=== PATIENT | female | born 1945 | race Caucasian/White ===

== ENCOUNTER → 2020-01-06 11:17 | Outpatient (BNVA) | payer MEDICARE, OTHER, SELFPAY | PROVIDERS: Visit Provider Nurse Practitioner Family | DX: E03.9 Hypothyroidism, unspecified (principal) | CPT/HCPCS: 84443 ==

== ENCOUNTER → 2021-01-25 09:53 | Outpatient (BNVA) | payer MEDICARE, OTHER, SELFPAY | PROVIDERS: Visit Provider Nurse Practitioner Family | DX: E78.5 Hyperlipidemia, unspecified (principal); E05.90 Thyrotoxicosis, unspecified without thyrotoxic crisis or storm; E03.9 Hypothyroidism, unspecified | CPT/HCPCS: 80053; 80061; 84443 ==

== ENCOUNTER → 2021-03-06 11:37 | Outpatient (BNVA) | payer MEDICARE, OTHER, SELFPAY | PROVIDERS: Visit Provider Nurse Practitioner Family | DX: E03.9 Hypothyroidism, unspecified (principal) | CPT/HCPCS: 84443 ==

== ENCOUNTER 2021-04-28 05:57 | Emergency (ER) | payer MEDICARE, OTHER, SELFPAY ==
[2021-04-28 06:05] VITALS: BP 168/78; PULSE 79; RESP 18; O2SAT 98; BMI 20.7
[2021-04-28 06:12] VITALS: BP 161/78; PULSE 66; RESP 18; TEMP 36.9; O2SAT 97
--- NOTE | 2021-04-28 06:14 | W.ED.CHESTPA ---
HPI - Chest Pain General: Chief Complaint: Chest Pain Stated Complaint: cp Time Seen by Provider: 04/28/21 05:59 History of Present Illness: HPI narrative: 75-year-old female presents with a history of chest pain. This morning she woke up at 3 AM and had an episode of chest pain after 20 minutes she took a nitro, she had relief of her chest pain but after 5 minutes it began to return and she took another nitro this again relieve the chest pain she also took 3 x 81 mg tablets of aspirin. She has been having intermittent chest pain for a month. She states the last week or 2 its been 3 to 4 days out of a week usually wakes her up early in the morning. Most often she is able to take a nitro and it goes away and does not return. She sees a pathology technician in [place] and recently describes having a stress echo which was reported to her as normal but she was seeking out having an angiogram done. She did have an angiogram with intervention of the stent about 11 years ago. Patient is nondiabetic she does not smoke. At the time of her history taking she is not having any chest pain. Director [employer]ulatory [employer] she sees in [place] recently had her stop the losartan and changed to isosorbide mononitrate. MD complaint: chest pain Pertinent past history: coronary artery disease Onset (ago): hour(s) Timing of current episode: episodic Prior episodes: Yes Onset: during rest Pain location: left chest Pain radiation: none Severity: moderate Quality: tightness and heaviness Relieving factors: nitroglycerin Exacerbating factors: nothing Associated symptoms: Deny abdominal pain, diaphoresis, dyspnea, fever(s), leg edema, nausea, palpitations, sense of impending doom, syncope or vomiting Treatment prior to arrival: aspirin and nitroglycerin Review of Systems Const: Denies: fever(s) or diaphoresis ENMT: Denies: throat pain, ear or mastoid pain, nasal discharge or nasal congestion Card: Denies: palpitations or syncope Resp: Denies: dyspnea GI: Denies: abdominal pain, nausea or vomiting : Denies: flank pain, difficulty voiding, dysuria, urinary frequency or urinary urgency Skin/Breast: Denies: rash or pruritus PFS ED PFSH: Medical History (Updated 04/28/21 @ 09:07 by Claude Moscoso DO) Hyperlipidemia Hypothyroidism Surgical History (Updated 04/28/21 @ 06:38 by Claude Moscoso DO) Hx of heart artery stent Social History Smoking and tobacco status: never smoked Physical Exam Const: COMMON NORMALS: no acute distress GENERAL APPEARANCE: cooperative and comfortable ORIENTATION/CONSCIOUSNESS: Yes awake, Yes oriented to person, Yes oriented to place and Yes oriented to time HENMT: COMMON NORMALS: normocephalic, atraumatic and hearing grossly normal bilaterally HEAD & SCALP: normocephalic and atraumatic Neck/C-Spine: COMMON NORMALS: no JVD Resp: COMMON NORMALS: normal respiratory effort, No retractions, No use of accessory muscles and clear to auscultation bilaterally AUSCULTATION: clear to auscultation bilaterally Cardio: COMMON NORMALS: no JVD, regular rate, regular rhythm and No murmurs present (Cardio) RATE: regular rate RHYTHM: regular rhythm GI: COMMON NORMALS: Soft to palpation and No hepatosplenomegaly present AUSCULTATION: Yes normoactive bowel sounds PALPATION: Yes Soft to palpation, No Tenderness to palpation present (GI), No Guarding due to palpation present (GI) and Yes No hepatosplenomegaly present Extremity: COMMON NORMALS: normal to inspection, capillary refill normal, no clubbing, cyanosis or edema, no calf tenderness and no pedal edema Neuro: SENSORIUM/ORIENTATION: Yes oriented to person, Yes oriented to place and Yes oriented to time Skin: COMMON NORMALS: no rashes or lesions noted GENERAL SKIN EXAM: no rashes or lesions noted Course Vital Signs: Vital signs: Vital Signs Temperature 98.4 F 04/28/21 06:12 Pulse Rate 93 04/28/21 09:15 Respiratory Rate 20 H 04/28/21 09:15 Blood Pressure 133/72 04/28/21 09:15 Pulse Oximetry 97 04/28/21 09:15 MDM - Chest Pain MDM Narrative: Medical decision making narrative: Labs imaging and EKG were reviewed as found on the chart. Patient not having any further chest pain symptoms recently had stress test that was unremarkable.We got a copy of the stress echo and is listed is unremarkable. There evidently planning to do a angiogram at some point in the future. This is been going on for some time. We can increase her isosorbide to 60 mg daily. Continue aspirin daily she has any worsening or change symptoms return. Recommend she contact her pathology technician as soon as she is able next week. Lab Data: Labs: Lab Results 04/28/21 04/28/21 04/28/21 06:07 06:07 06:07 WBC 6.2 10^3/uL 10^3/ uL (4.0-10.0) RBC 4.04 10^6/uL L 10 ^6/uL (4.1-5.3) Hgb 12.6 g/dL g/dL (11.5-15.3) Hct 38.7 % % (37.0-47.0) MCV 95.8 fl fl (81-99) MCH 31.2 pg pg (28.0-34.0) MCHC 32.6 g/dL g/dL (30.0-36.0) RDW 12.0 % L % (12.1-15.1) Plt Count 283 10^3/cmm 10^3 /cmm (130-400) MPV 9.3 fL fL (7.4-10.4) Neut % (Auto) 66.1 % % Lymph % (Auto) 25.2 % % [place] % (Auto) 7.7 % % Eos % (Auto) 0.0 % % Baso % (Auto) 0.8 % % Neut # (Auto) 4.10 10^3/uL 10^3 /uL (1.8-7.7) Lymph # (Auto) 1.6 10^3/uL 10^3/ uL (0.8-4.8) [place] # (Auto) 0.5 10^3/uL 10^3/ uL (0.2-0.9) Eos # (Auto) 0.0 10^3/uL 10^3/ uL (0.0-0.8) Baso # (Auto) 0.1 10^3/uL 10^3/ uL (0.0-0.1) Nucleated RBC % (a uto) 0 % % Nucleated RBCs # 0.0 /100WBC /100W BC Troponin T Baselin e 7 ng/L ng/L (0-10) Troponin T 120 Min [place] Delta Troponin T NT-Pro-B Natriuret Pep 137 pg/mL H pg/mL (0-125) 04/28/21 07:56 WBC RBC Hgb Hct MCV MCH MCHC RDW Plt Count MPV Neut % (Auto) Lymph % (Auto) [place] % (Auto) Eos % (Auto) Baso % (Auto) Neut # (Auto) Lymph # (Auto) [place] # (Auto) Eos # (Auto) Baso # (Auto) Nucleated RBC % (a uto) Nucleated RBCs # Troponin T Baselin e Troponin T 120 Min [place] 6.00 ng/L ng/L (0-10) Delta Troponin T -1.00 ABS# L ABS# (0-10) NT-Pro-B Natriuret Pep Discharge Plan Discharge Patient Disposition: Home Clinical Impression: Atypical chest pain, History of atherosclerotic heart disease Condition: Stable Prescriptions: Changed isosorbide mononitrate 30 mg Tablet Extended Release 24 Hr 60 mg PO DAILY Qty: 0 RF: 0 No Action simvastatin 20 mg tablet 20 mg PO QDAY Qty: 30 RF: 0 levothyroxine 100 mcg capsule 100 mcg PO DAILY Qty: 90 RF: 1 aspirin 81 mg Tablet 81 mg PO DAILY RF: 0 Discharge Orders: Discharge ED (Routine); Ordered 04/28/21 Ordered By: Claude Moscoso Discharge Diet: Usual diet Discharge Activity: Limit activity as instructed Patient Instructions: Opioid Safety Activity Restrictions/Additional Instructions: Avoid strenuous activities. Return to the emergency room if you have further problems. Contact your pathology technician at first opportunity for further follow-up. Coding Level of Care Code ED Muffler Installer for Yuniel Fwd Exam Comprehensive
--- NOTE | 2021-04-28 06:16 | XRR_ITS ---
PROCEDURE INFORMATION: Exam: XR Chest Exam date and time: 04/28/2021 6:16 AM Age: 75 years old Clinical indication: Chest pressure; Prior surgery; Surgery type: Coronary stent. ; Patient HX: Chest pain with hypertension. TECHNIQUE: Imaging protocol: XR of the chest. Views: 1 view. COMPARISON: No relevant prior studies available. FINDINGS: Lungs: Unremarkable. No consolidation. Pleural spaces: Unremarkable. No pleural effusion. No pneumothorax. Heart/Mediastinum: Unremarkable. No cardiomegaly. Bones/joints: Unremarkable. XR/XR chest 1V portable [id number] IMPRESSION: No acute findings.
--- NOTE | 2021-04-28 06:16 | ECG_ITS ---
[facility] Test Date: 2021-04-28 Pat Name: Lakesha Robb Department: Room: Gender: Female Dynamicist: : 1945 Requested By: Claude Sarmiento Order Number: [id number] Shraddha MD: Phyllis Coronel M.D. Measurements Intervals [place] Rate: 75 P: 75 HI: 155 QRS: 21 QRSD: 97 T: 62 QT: 390 QTc: 437 Interpretive Statements SINUS RHYTHM NONSPECIFIC ST & T-WAVE ABNORMALITY No previous ECG available for comparison Electronically Signed On 04-28-2021 14:57:29 BUSINESS ANALYSIS CONSULTANT by Phyllis Coronel M.D. [id number]
[2021-04-28 06:30] VITALS: BP 161/78; PULSE 74; RESP 18; O2SAT 98
[2021-04-28 06:36] LABS: Basophils # 0.1 10^3/uL (0.0-0.1); Basophils % 0.8 %; Hematocrit 38.7 % (37.0-47.0); Hemoglobin 12.6 g/dL (11.5-15.3); Lymphocytes # 1.6 10^3/uL (0.8-4.8); Lymphocytes % 25.2 %; Mean Corpuscular HGB Conc 32.6 g/dL (30.0-36.0); Mean Corpuscular Hemoglobin 31.2 pg (28.0-34.0); Mean Corpuscular Volume 95.8 fl (81-99); Mean Platelet Volume 9.3 fL (7.4-10.4); Monocytes # 0.5 10^3/uL (0.2-0.9); Monocytes % 7.7 %; Neutrophils % 66.1 %; Nucleated Red Blood Cells % 0 %; Platelet Count 283 10^3/cmm (130-400); Red Blood Count 4.04 10^6/uL (4.1-5.3); White Blood Count 6.2 10^3/uL (4.0-10.0)
[2021-04-28 06:49] LABS: Troponin(5th) Baseline 7 ng/L (0-10)
[2021-04-28] MEDS: aspirin 81 mg Chew Tablet PO (06:54)
[2021-04-28] MEDS: nitroglycerin 1 gm/inch oint Pkt 0.5 INCH TOPICAL (06:54)
[2021-04-28 06:55] VITALS: BP 129/79; PULSE 67; RESP 18; O2SAT 96
[2021-04-28 06:57] LABS: NT Pro B Type Natriuretic Pept 137 pg/mL (0-125)
[2021-04-28 09:15] VITALS: BP 133/72; PULSE 93; RESP 20; O2SAT 97
--- NOTE | 2021-04-30 14:35 | DCPLANNER ---
Addendum entered by Maria Ines Figueredo 05/28/21 08:29: Patient had a follow up appointment scheduled for 05.21.21 with [facility] - patient did attend appointment. Original Note: career services manager had message to schedule a follow up appointment for patient with [facility]. career services manager called [facility], spoke with Sabine Pickering, gave clinic patients information. A follow up appointment was scheduled for Friday, May 21, 2021 at 2:[address] Coronel. career services manager called patients daughter and gave her the appointment information.
== END 2021-04-28 09:30 | disposition home or self-care (01) ==
PROVIDERS: Emergency Provider Family Medicine
DX: R07.89 Other chest pain (principal); I25.10 Atherosclerotic heart disease of native coronary artery without angina pectoris; E78.5 Hyperlipidemia, unspecified; E03.9 Hypothyroidism, unspecified
CPT/HCPCS: 36415; 71045; 83880; 84484; 85025; 93005; 99284

== ENCOUNTER 2021-05-10 06:39 | Emergency (ER) | payer MEDICARE, OTHER, SELFPAY ==
[2021-05-10 06:46] VITALS: BP 153/89; PULSE 74; RESP 18; O2SAT 99; BMI 20.7
[2021-05-10 06:51] VITALS: PULSE 76; RESP 19; O2SAT 98
[2021-05-10 07:07] LABS: Basophils % 0.7 %; Hematocrit 38.8 % (37.0-47.0); Hemoglobin 12.7 g/dL (11.5-15.3); Lymphocytes # 1.2 10^3/uL (0.8-4.8); Lymphocytes % 20.5 %; Mean Corpuscular HGB Conc 32.7 g/dL (30.0-36.0); Mean Corpuscular Hemoglobin 31.2 pg (28.0-34.0); Mean Corpuscular Volume 95.3 fl (81-99); Mean Platelet Volume 9.5 fL (7.4-10.4); Monocytes # 0.5 10^3/uL (0.2-0.9); Monocytes % 8.5 %; Neutrophils # 4.04 10^3/uL (1.8-7.7); Nucleated Red Blood Cells % 0 %; Platelet Count 249 10^3/cmm (130-400); Red Blood Count 4.07 10^6/uL (4.1-5.3); Red Cell Distribution Width 11.9 % (12.1-15.1); White Blood Count 5.8 10^3/uL (4.0-10.0)
--- NOTE | 2021-05-10 07:12 | W.ED.CHESTPA ---
HPI - Chest Pain General: Chief Complaint: Chest Pain Stated Complaint: cp Time Seen by Provider: 05/10/21 06:45 History of Present Illness: HPI narrative: Patient comes in with concerns for chest pain that started this morning. States that she had a stent placed 2 days ago after off-and-on chest pain for over a month. States this morning she woke up with midsternal chest pain which she describes as kind of an ache, constant, no exacerbating or relieving factors. Denies nausea, fever, vomiting. Associated symptoms: Deny abdominal pain, dyspnea, fever(s), nausea, palpitations or vomiting Review of Systems Const: Denies: fever(s) or body aches Eyes: Denies: change in vision or blurry vision ENMT: Denies: throat pain or odynophagia Card: Reports: chest pain; Denies: palpitations Resp: Denies: dyspnea or productive cough GI: Denies: abdominal pain, nausea or vomiting : Denies: flank pain or dysuria Musc: Denies: neck pain or back pain Skin/Breast: Denies: rash or pruritus Neuro: Denies: headache(s) or numbness in extremities Psych: Denies: anxiety or change in appetite Endo: Denies: polyuria or excessive sweating PFSH ED PFSH: Medical History (Updated 05/10/21 @ 10:06 by Galindo Peres MD) Hyperlipidemia Hypothyroidism Surgical History (Updated 04/28/21 @ 06:38 by Claude Moscoso DO) Hx of heart artery stent Social History Smoking and tobacco status: never smoked Physical Exam Const: COMMON NORMALS: no acute distress, patient oriented x3, healthy appearing and alert HENMT: COMMON NORMALS: normocephalic and atraumatic HEAD & SCALP: normocephalic and atraumatic Eye: COMMON NORMALS: Equal, round and reactive pupils present and EOMs intact bilaterally PUPIL: Yes Equal, round and reactive pupils present Neck/C-Spine: COMMON NORMALS: full ROM and supple Resp: COMMON NORMALS: normal respiratory effort, No retractions and No use of accessory muscles Cardio: COMMON NORMALS: regular rate and regular rhythm RATE: regular rate RHYTHM: regular rhythm GI: COMMON NORMALS: Normal to inspection, nondistended, normoactive bowel sounds present, Soft to palpation and non-tender PALPATION: Yes Soft to palpation Back/Pelvis: COMMON NORMALS: thoracic and lumbar spine normal to inspection and no thoracic nor lumbar tenderness Extremity: COMMON NORMALS: normal to inspection and full ROM Neuro: COMMON NORMALS: patient oriented x3 SENSORIUM/ORIENTATION: Yes alert Psych: COMMON NORMALS: mental status grossly normal and cooperative Skin: COMMON NORMALS: no rashes or lesions noted and no wounds GENERAL SKIN EXAM: no rashes or lesions noted Course ED course: Patient comes in with concerns for chest pain which she describes as midsternal, started this morning, achy, constant, no relieving factors. States she had a stent placed 2 days ago after off-and-on chest pain for about a month which she states feels similar to this. She states the chest pain is mild however compared to previous episodes. Stat EKG done upon arrival showed sinus rhythm with no ST segment elevations. Physical exam is unremarkable. We will give her nitro, check labs, and reassess. On reassessment I talked to the patient about the test results. Her troponin is 12 at baseline as well as at 2 hours. She is pain-free at this time. Will discharge with precautions return for worsening or changing symptoms. We will also encourage her to follow-up with her yarn wrapper as scheduled. Vital Signs: Vital signs: Vital Signs Pulse Rate 59 L 05/10/21 09:42 Respiratory Rate 14 05/10/21 09:42 Blood Pressure 122/73 05/10/21 09:42 Pulse Oximetry 97 05/10/21 09:42 MDM - Chest Pain Lab Data: Labs: Lab Results 05/10/21 05/10/21 05/10/21 06:50 06:50 06:50 WBC 5.8 10^3/uL 10^3/ uL (4.0-10.0) RBC 4.07 10^6/uL L 10 ^6/uL (4.1-5.3) Hgb 12.7 g/dL g/dL (11.5-15.3) Hct 38.8 % % (37.0-47.0) MCV 95.3 fl fl (81-99) MCH 31.2 pg pg (28.0-34.0) MCHC 32.7 g/dL g/dL (30.0-36.0) RDW 11.9 % L % (12.1-15.1) Plt Count 249 10^3/cmm 10^3 /cmm (130-400) MPV 9.5 fL fL (7.4-10.4) Neut % (Auto) 70.0 % % Lymph % (Auto) 20.5 % % [place] % (Auto) 8.5 % % Eos % (Auto) 0.0 % % Baso % (Auto) 0.7 % % Neut # (Auto) 4.04 10^3/uL 10^3 /uL (1.8-7.7) Lymph # (Auto) 1.2 10^3/uL 10^3/ uL (0.8-4.8) [place] # (Auto) 0.5 10^3/uL 10^3/ uL (0.2-0.9) Eos # (Auto) 0.0 10^3/uL 10^3/ uL (0.0-0.8) Baso # (Auto) 0.0 10^3/uL 10^3/ uL (0.0-0.1) Nucleated RBC % (a uto) 0 % % Nucleated RBCs # 0.0 /100WBC /100W BC Sodium 139 mmol/L mmol/L (136-145) Potassium 3.7 mmol/L mmol/L (3.5-5.1) Chloride 105 mmol/L mmol/L (98-107) Carbon Dioxide 22 mmol/L mmol/L (22-29) Anion Gap 15.7 (5-19) BUN 11 mg/dL mg/dL (8-23) Creatinine 0.7 mg/dL mg/dL (0.5-0.9) GFR Calculation Not Reportable Glucose 102 mg/dL mg/dL (65-115) Calculated Osmolal ity 288 mOsm/kg mOsm/ kg (285-295) Calcium 8.8 mg/dL mg/dL (8.5-10.5) Total Bilirubin 0.3 mg/dL mg/dL (0.15-1.2) AST 13 U/L U/L (0-32) ALT 7 U/L U/L (0-33) Alkaline Phosphata se 67 IU/L IU/L (35-105) Troponin T Baselin e 12 ng/L H ng/L (0-10) Troponin T 120 Min [place] Delta Troponin T Total Protein 6.5 g/dL L g/dL (6.6-8.7) Albumin 4.4 g/dL g/dL (3.5-5.2) Globulin 2.1 g/dL g/dL (1.3-4.6) 05/10/21 09:14 WBC RBC Hgb Hct MCV MCH MCHC RDW Plt Count MPV Neut % (Auto) Lymph % (Auto) [place] % (Auto) Eos % (Auto) Baso % (Auto) Neut # (Auto) Lymph # (Auto) [place] # (Auto) Eos # (Auto) Baso # (Auto) Nucleated RBC % (a uto) Nucleated RBCs # Sodium Potassium Chloride Carbon Dioxide Anion Gap BUN Creatinine GFR Calculation Glucose Calculated Osmolal ity Calcium Total Bilirubin AST ALT Alkaline Phosphata se Troponin T Baselin e Troponin T 120 Min su[place] 12.13 ng/L H ng/L (0-10) Delta Troponin T 0.13 ABS# ABS# (0-10) Total Protein Albumin Globulin Discharge Plan Discharge Patient Disposition: Home Clinical Impression: Chest pain in adult Condition: Stable Prescriptions: No Action clopidogrel 75 mg tablet 75 mg PO BEDTIME RF: 0 Aspir-81 81 mg Tablet,Delayed Release (Dr/Ec) 81 mg PO BEDTIME RF: 0 Synthroid 100 mcg tablet 100 mcg PO QAM RF: 0 Nitrostat 0.4 mg Tablet, Sublingual 0.4 mg SUBLINGUAL Q5M PRN (Reason: Chest Pain) RF: 0 isosorbide mononitrate 30 mg tablet extended release 24 hr 60 mg PO QAM RF: 0 simvastatin 20 mg tablet 20 mg PO BEDTIME RF: 0 Discharge Orders: Discharge ED (Routine); Ordered 05/10/21 Ordered By: Galindo Peres Coding Level of Care Code ED Nuclear Criticality Safety Engineer for Yuniel Fwd Exam Comprehensive
[2021-05-10 07:27] LABS: Troponin(5th) Baseline 12 ng/L (0-10)
[2021-05-10 07:30] LABS: Alanine Aminotransferase 7 U/L (0-33); Albumin Level 4.4 g/dL (3.5-5.2); Alkaline Phosphatase 67 IU/L (35-105); Anion Gap 15.7 (5-19); Aspartate Amino Transferase 13 U/L (0-32); Blood Urea Nitrogen 11 mg/dL (8-23); Calcium 8.8 mg/dL (8.5-10.5); Carbon Dioxide 22 mmol/L (22-29); Chloride 105 mmol/L (98-107); Globulin 2.1 g/dL (1.3-4.6); Glucose 102 mg/dL (65-115); Osmolality Calculated 288 mOsm/kg (285-295); Potassium 3.7 mmol/L (3.5-5.1); Sodium 139 mmol/L (136-145); Total Bilirubin 0.3 mg/dL (0.15-1.2); Total Protein 6.5 g/dL (6.6-8.7)
--- NOTE | 2021-05-10 09:25 | ECG_ITS ---
[facility] Test Date: 2021-05-10 Pat Name: Lakesha Robb Department: Room: Gender: Female Chief Unit Forester: : 1945 Requested By: Galindo Peres Order Number: [id number] Reading MD: BECKIE HARTMAN Measurements Intervals [place] Rate: 71 P: 75 [place]: 155 QRS: 1 QRSD: 86 T: -6 QT: 359 QTc: 391 Interpretive Statements SINUS RHYTHM NONSPECIFIC ST & T-WAVE ABNORMALITY Compared to ECG 04/28/2021 06:04:01 No significant changes Electronically Signed On 05-11-2021 18:17:12 STOCKBROKER by BECKIE HARTMAN [id number] f
[2021-05-10 09:27] VITALS: BP 134/73; PULSE 60; RESP 14; O2SAT 97
[2021-05-10 09:42] VITALS: BP 122/73; PULSE 59; RESP 14; O2SAT 97
[2021-05-10 09:47] LABS: Troponin 5 2HR 12.13 ng/L (0-10); Troponin 5 2HR Delta 0.13 ABS# (0-10)
[2021-05-10 10:47] VITALS: BP 122/73; PULSE 65; O2SAT 97
[2021-05-10 13:10] LABS: Troponin 5 6HR 7.38 ng/L (0-10)
[2021-05-10 13:11] LABS: Troponin 5 6HR Delta -4.62 ng/L (0-12)
== END 2021-05-10 10:49 | disposition home or self-care (01) ==
PROVIDERS: Emergency Provider Emergency Medicine
DX: R07.9 Chest pain, unspecified (principal); Z79.02 Long term (current) use of antithrombotics/antiplatelets; Z79.82 Long term (current) use of aspirin; E78.5 Hyperlipidemia, unspecified
CPT/HCPCS: 36415; 80053; 84484; 85025; 93005; 99283

== ENCOUNTER 2021-05-23 07:10 | Observation (INO) | payer MEDICARE, OTHER, SELFPAY ==
[2021-05-23] VITALS (15 sets, daily range): BP systolic 99–163; BP diastolic 65–101; PULSE 58–76; RESP 14–29; TEMP 36.6–36.9; O2SAT 93–98; BMI 20.7
--- NOTE | 2021-05-23 07:34 | XR_ITS ---
WS: [id number] PORTABLE CHEST HISTORY: chest pain COMPARISON: 04/28/2021 Mild hyperinflation. No pneumonia. Normal vasculature. No pleural effusion or pneumothorax. Cardiac size: Normal. Mediastinum/Aorta: Mildly ectatic aorta. No mediastinal widening. No osseous abnormality seen. XR/XR chest 1V portable [id number] IMPRESSION: Mild chronic emphysema. No pneumonia.
--- NOTE | 2021-05-23 07:42 | PC.NURSE ---
Pt placed on continuous bedside cardiac, BP and O2 monitor.
--- NOTE | 2021-05-23 07:46 | W.ED.CHESTPA ---
HPI - Chest Pain General: Chief Complaint: ER Hold Stated Complaint: cp Time Seen by Provider: 05/23/21 07:15 History of Present Illness: 75-year-old female presents emergency room with complaint of chest pain. Patient has known coronary artery disease and had been having increasing angina and we had seen her earlier this month in the emergency room and increased her Imdur at that point they had planned a angiogram and she wanted to follow through with that in [place]. She has since changed her care to Dr. Coronel's office and seen him 2 days ago. This morning she had chest pain while at rest she initially took a nitro it improved she ended up taking a second nitro as well as aspirin and states she is pain-free now. She was started on Plavix after the recent angiogram in which they did have intervention with angioplasty and stent placement. Patient has denies any diaphoresis or dyspnea with this. 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 (Approximately 2 weeks ago) Onset (ago): hour(s) Timing of current episode: episodic Prior episodes: Yes Onset: during rest Pain location: substernal Pain radiation: none Severity: moderate Quality: tightness and heaviness Relieving factors: nitroglycerin Exacerbating factors: nothing Associated symptoms: Deny abdominal pain, diaphoresis, dyspnea, fever(s), leg edema, nausea, palpitations, sense of impending doom, syncope or vomiting Treatment prior to arrival: aspirin and nitroglycerin Review of Systems Const: Denies: fever(s) or diaphoresis ENMT: Denies: throat pain, ear or mastoid pain, nasal discharge or nasal congestion Card: Denies: palpitations or syncope Resp: Denies: dyspnea GI: Denies: abdominal pain, nausea or vomiting : Denies: flank pain, difficulty voiding, dysuria, urinary frequency or urinary urgency Skin/Breast: Denies: rash or pruritus PFSH ED PFSH: Medical History (Updated 05/23/21 @ 11:26 by Claude Moscoso DO) Chest pain Hyperlipidemia Hypothyroidism Surgical History Hx of heart artery stent Family History Mother CAD (coronary artery disease) Father CAD (coronary artery disease) [place] at 64/ Denies family history of Diabetes Clotting disorder Dementia Chronic kidney disease (CKD) Suicide Anesthesia complication Bleeding disorder Lung disease Cancer Stroke Social History Smoking and tobacco status: former smoker Alcohol intake: never Physical Exam Const: GENERAL APPEARANCE: cooperative and comfortable ORIENTATION/CONSCIOUSNESS: Yes awake, Yes oriented to person, Yes oriented to place and Yes oriented to time HENMT: COMMON NORMALS: normocephalic and atraumatic HEAD & SCALP: normocephalic and atraumatic Neck/C-Spine: COMMON NORMALS: no JVD Resp: COMMON NORMALS: normal respiratory effort, No retractions, No use of accessory muscles and clear to auscultation bilaterally AUSCULTATION: clear to auscultation bilaterally Cardio: COMMON NORMALS: no JVD, regular rate, regular rhythm and No murmurs present (Cardio) RATE: regular rate RHYTHM: regular rhythm GI: COMMON NORMALS: Soft to palpation and No hepatosplenomegaly present AUSCULTATION: Yes normoactive bowel sounds PALPATION: Yes Soft to palpation, No Tenderness to palpation present (GI), No Guarding due to palpation present (GI) and Yes No hepatosplenomegaly present Extremity: COMMON NORMALS: normal to inspection, capillary refill normal, no clubbing, cyanosis or edema, no calf tenderness and no pedal edema Neuro: SENSORIUM/ORIENTATION: Yes oriented to person, Yes oriented to place and Yes oriented to time Skin: COMMON NORMALS: no rashes or lesions noted GENERAL SKIN EXAM: no rashes or lesions noted Course Vital Signs: Vital signs: Vital Signs Temperature 98.1 F 05/23/21 07:25 Pulse Rate 76 05/23/21 10:22 Respiratory Rate 18 05/23/21 10:22 Blood Pressure 114/79 05/23/21 10:22 Pulse Oximetry 95 05/23/21 10:22 MDM - Chest Pain Medical Decision Making Troponins are negative was quite concerning is is patient is having angina relieved by nitro and it is unprovoked. With this unstable angina in the presence of known coronary artery disease and history of coronary artery spasm gets Bess[place] we admit her discussed with cardiology and with hospitalist orders written Dr. Dickinson to consult. EKG reviewed as well does not show any acute ST changes. Medical Records I reviewed the patient's medical records. Lab Data I reviewed the patient's lab results. : 05/23/21 07:25 05/23/21 07:25 Radiology Impressions Chest X-Ray 05/23/21 07:34 IMPRESSION: Mild chronic emphysema. No pneumonia. Laboratory Results WBC 7.5 10^3/uL (4.0-10.0) 05/23/21 07:25 RBC 3.97 10^6/uL (4.1-5.3) L 05/23/21 07:25 Hgb 12.6 g/dL (11.5-15.3) 05/23/21 07:25 Hct 37.5 % (37.0-47.0) 05/23/21 07:25 MCV 94.5 fl (81-99) 05/23/21 07:25 MCH 31.7 pg (28.0-34.0) 05/23/21 07:25 MCHC 33.6 g/dL (30.0-36.0) 05/23/21 07:25 RDW 11.8 % (12.1-15.1) L 05/23/21 07:25 Plt Count 263 10^3/cmm (130-400) 05/23/21 07:25 MPV 9.3 fL (7.4-10.4) 05/23/21 07:25 Neut % (Auto) 79.2 % 05/23/21 07:25 Lymph % (Auto) 13.2 % 05/23/21 07:25 [place] % (Auto) 6.8 % 05/23/21 07:25 Eos % (Auto) 0.0 % 05/23/21 07:25 Baso % (Auto) 0.5 % 05/23/21 07:25 Neut # (Auto) 5.93 10^3/uL (1.8-7.7) 05/23/21 07:25 Lymph # (Auto) 1.0 10^3/uL (0.8-4.8) 05/23/21 07:25 [place] # (Auto) 0.5 10^3/uL (0.2-0.9) 05/23/21 07:25 Eos # (Auto) 0.0 10^3/uL (0.0-0.8) 05/23/21 07:25 Baso # (Auto) 0.0 10^3/uL (0.0-0.1) 05/23/21 07:25 Nucleated RBC % (auto) 0 % 05/23/21 07:25 Nucleated RBCs # 0.0 /100WBC 05/23/21 07:25 Sodium 140 mmol/L (136-145) 05/23/21 07:25 Potassium 4.1 mmol/L (3.5-5.1) 05/23/21 07:25 Chloride 105 mmol/L (98-107) 05/23/21 07:25 Carbon Dioxide 24 mmol/L (22-29) 05/23/21 07:25 Anion Gap 15.1 (5-19) 05/23/21 07:25 BUN 14 mg/dL (8-23) 05/23/21 07:25 Creatinine 0.8 mg/dL (0.5-0.9) 05/23/21 07:25 GFR Calculation Not Reportable 05/23/21 07:25 Glucose 96 mg/dL (65-115) 05/23/21 07:25 Calculated Osmolality 290 mOsm/kg (285-295) 05/23/21 07:25 Calcium 9.1 mg/dL (8.5-10.5) 05/23/21 07:25 Total Bilirubin 0.4 mg/dL (0.15-1.2) 05/23/21 07:25 AST 14 U/L (0-32) 05/23/21 07:25 ALT 7 U/L (0-33) 05/23/21 07:25 Alkaline Phosphatase 79 IU/L (35-105) 05/23/21 07:25 Creatine Kinase 34 U/L (26-192) 05/23/21 07:25 Troponin T Baseline 6 ng/L (0-10) 05/23/21 07:25 Troponin T 120 Minute < 6 ng/L (0-10) 05/23/21 09:18 Delta Troponin T -0.78320 ABS# (0-10) L 05/23/21 09:18 Total Protein 7.1 g/dL (6.6-8.7) 05/23/21 07:25 Albumin 4.8 g/dL (3.5-5.2) 05/23/21 07:25 Globulin 2.3 g/dL (1.3-4.6) 05/23/21 07:25 Discharge Plan Discharge Patient Disposition: Placed in Observation Clinical Impression: Angina pectoris, unstable, Hypothyroidism, Hyperlipidemia, Atherosclerotic heart disease of [place] coronary artery with other forms of angina pectoris Condition: Stable Prescriptions: No Action Nitrostat 0.4 mg tablet, sublingual 0.4 mg SUBLINGUAL Q5M PRN (Reason: Chest Pain) Qty: 30 5RF clopidogrel 75 mg tablet 75 mg PO BEDTIME Qty: 90 3RF aspirin [Aspir-81] 81 mg Tablet,Delayed Release (Dr/Ec) 81 mg PO BEDTIME 0RF levothyroxine [Synthroid] 100 mcg tablet 100 mcg PO QAM 0RF isosorbide mononitrate 30 mg tablet extended release 24 hr 60 mg PO QAM 0RF simvastatin 20 mg tablet 20 mg PO BEDTIME 0RF Referrals: Carine Malagon FNP [Primary Care Provider] - Coding Level of Care Code ED Associate Doctor for Chg Fwd Exam Comprehensive
[2021-05-23 07:54] LABS: Basophils % 0.5 %; Hematocrit 37.5 % (37.0-47.0); Hemoglobin 12.6 g/dL (11.5-15.3); Lymphocytes % 13.2 %; Mean Corpuscular HGB Conc 33.6 g/dL (30.0-36.0); Mean Corpuscular Hemoglobin 31.7 pg (28.0-34.0); Mean Corpuscular Volume 94.5 fl (81-99); Mean Platelet Volume 9.3 fL (7.4-10.4); Monocytes # 0.5 10^3/uL (0.2-0.9); Monocytes % 6.8 %; Neutrophils # 5.93 10^3/uL (1.8-7.7); Neutrophils % 79.2 %; Nucleated Red Blood Cells % 0 %; Platelet Count 263 10^3/cmm (130-400); Red Blood Count 3.97 10^6/uL (4.1-5.3); Red Cell Distribution Width 11.8 % (12.1-15.1); White Blood Count 7.5 10^3/uL (4.0-10.0)
[2021-05-23 08:17] LABS: Troponin(5th) Baseline 6 ng/L (0-10)
[2021-05-23 08:19] LABS: Alanine Aminotransferase 7 U/L (0-33); Albumin Level 4.8 g/dL (3.5-5.2); Alkaline Phosphatase 79 IU/L (35-105); Anion Gap 15.1 (5-19); Aspartate Amino Transferase 14 U/L (0-32); Blood Urea Nitrogen 14 mg/dL (8-23); Calcium 9.1 mg/dL (8.5-10.5); Carbon Dioxide 24 mmol/L (22-29); Chloride 105 mmol/L (98-107); Creatine Phosphokinase 34 U/L (26-192); Globulin 2.3 g/dL (1.3-4.6); Glucose 96 mg/dL (65-115); Osmolality Calculated 290 mOsm/kg (285-295); Potassium 4.1 mmol/L (3.5-5.1); Sodium 140 mmol/L (136-145); Total Bilirubin 0.4 mg/dL (0.15-1.2); Total Protein 7.1 g/dL (6.6-8.7)
[2021-05-23] MEDS: nitroglycerin 1 gm/inch oint Pkt 0.5 INCH TOPICAL (09:07)
--- NOTE | 2021-05-23 09:59 | P.CONIM_ITS ---
Providers/Reason For Consult Consulting Physician/Specialty*: Dr. Malik, cardiology Reason for Consult*: Chest pain Primary Care Provider: RADHA Peck History of Present Illness History of Present Illness Lakesha Robb is a 75 year old female with past medical history of coronary artery disease with history of NH in 2010, hypothyroidism, dyslipidemia and is a former smoker She was at [facility] in [place] and had primary PCI of possibly RCA lesion at that time. Recently she started having episodes of chest pains requiring multiple ER visits. She had dobutanmine stress echo in 03/2021 which was unremarkable with ongoing symptoms she underwent cardiac catheterization 08 May 2021 and was found to have high-grade lesion in distal RCA for which she underwent PCI. She was recently seen by Dr. Coronel on 21 May 2021. She used to follow-up with Dr. Garcia in [place]. Since her recent procedure she has had few episodes of mild chest pains especially in the morning when she gets up for which she uses mild sublingual nitroglycerin. She came to the ER complaining of increasing chest discomfort for which she used 2 nitroglycerin this morning. Her baseline troponin T was 6 and at 2 hours was 6. Rest of her labs were unremarkable. Chest x-ray did not show any acute abnormalities. EKG showed sinus rhythm with normal axis and nonspecific ST depression and T wave inversion. Her blood pressure on arrival today was 163/101 mmHg while in office 2 days back it was 124/80 mmHg. She tells me she has been in ER twice since her recent stent. It seems like for every episode of chest pain she goes to ER. She tells me today's episode was a little worse. Review of Systems Const: Denies: fever(s) or diaphoresis ENMT: Denies: throat pain, ear or mastoid pain, nasal discharge or nasal conge stion Card: Denies: palpitations or syncope Resp: Denies: dyspnea GI: Denies: abdominal pain, nausea or vomiting : Denies: flank pain, difficulty voiding, dysuria, urinary frequency or urinary urgency Skin/Breast: Denies: rash or pruritus Medications/Allergies Home Medications Medication Instructions Recorded Confirmed Last Taken Type aspirin 81 mg tablet,delayed 81 mg PO BEDTIME 05/10/21 05/23/21 05/22/21 History release isosorbide mononitrate 30 mg 60 mg PO QAM 05/10/21 05/23/21 05/22/21 History tablet,extended release 24 hr levothyroxine 100 mcg tablet 100 mcg PO QAM 05/10/21 05/23/21 05/22/21 History (Synthroid) simvastatin 20 mg tablet 20 mg PO BEDTIME 05/10/21 05/23/21 05/22/21 History clopidogrel 75 mg tablet 75 mg PO BEDTIME #90 tab 05/21/21 05/23/21 05/22/21 Rx nitroglycerin 0.4 mg sublingual 0.4 mg SUBLINGUAL Q5M PRN #30 tab 05/21/21 05/23/21 Unknown Rx tablet (Nitrostat) Allergies Allergy/AdvReac Type Severity Reaction Status Date / Time codeine Allergy Unconscious Verified 05/23/21 10:15 PFSH Acute PFSH: Medical History Chest pain Hyperlipidemia Hypothyroidism Surgical History Hx of heart artery stent Family History Mother CAD (coronary artery disease) Father CAD (coronary artery disease) NH at 64/ Denies family history of Diabetes Clotting disorder Dementia Chronic kidney disease (CKD) Suicide Anesthesia complication Bleeding disorder Lung disease Cancer Stroke Social History Smoking and tobacco status: former smoker Alcohol intake: never Vitals/I&O/Wt Last Vital Signs Temp 98.1 F 05/23/21 07:25 Pulse 66 05/23/21 07:38 Resp 17 05/23/21 07:38 BP 134/89 05/23/21 07:38 Pulse Ox 97 05/23/21 07:38 Weight last 48 hrs Weight 125 lb Physical Exam Narrative: EXAM NARRATIVE: GENERAL: Averagely built and averagely nourished in no acute distress HEENT: Pupils equal round reactive to light. No pallor or icterus. NECK:No JVD, No carotid bruit. CARDIOVASCULAR SYSTEM: S1-S2 regular. No murmur rubs or gallops. RESPIRATORY SYSTEM: Chest clear to auscultation. No wheezes rhonchi or rubs heard.No use of accessory muscles. ABDOMEN: Soft, nontender and nondistended. Normal bowel sounds present. EXTREMITIES: No cyanosis. No edema. No signs of chronic venous insufficiency. WIRE CHIEF: Patient is alert oriented ?3. No focal neurological deficits. Data : 05/23/21 07:25 05/23/21 07:25 A&P Assessment and plan (1) Chest pain: recent RCA ADEEL -f/u on records -restart imdur at home dose -limited echo Status: Acute (2) Atherosclerotic heart disease of [place] coronary artery with other forms of angina pectoris: continue DAPT and statin -will consider metoporlol based on BP/HR Status: Acute (3) Hyperlipidemia: Status: Acute Qualifiers: Hyperlipidemia type: mixed hyperlipidemia Qualified Code(s): E78.2 - Mixed hyperlipidemia (4) Hypothyroidism: Status: Acute Qualifiers: Hypothyroidism type: acquired Qualified Code(s): E03.9 - Hypothyroidism, unspecified Coding Level of Care Code New Pt Acute Community Advocate for Chg Fwd Patient Type New History Comprehensive Exam Comprehensive Medical Decision Making High Complexity Diagnoses Chest pain R07.9 Atherosclerotic heart disease of [place] coronary artery with other forms of angina pectoris I25.118 Hyperlipidemia E78.2 Hyperlipidemia type: mixed hyperlipidemia Hypothyroidism E03.9 Hypothyroidism type: acquired Time Spent (min) 25
[2021-05-23 10:16] LABS: Troponin 5 2HR < 6 ng/L (0-10); Troponin 5 2HR Delta -0.00001 ABS# (0-10)
--- NOTE | 2021-05-23 11:37 | P.HP_ITS ---
Providers/Chief Complaint Primary Care Provider: RADHA Peck Chief Complaint: cp History of Present Illness Lakesha Robb is a 75 year old female with established coronary disease history, stent to LAD 2009, had stent placed in RCA 2 weeks ago consult recently was evaluated by Dr. Coronel about 2 days ago presented today with chief complaint of chest pain. 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 Her chest pain mostly happened at the time of rest this morning around 3 AM she woke up with chest pain which she describing as diffuse achy chest discomfort which was radiating to her left shoulder she did not experience any nausea, vomiting or diaphoresis. Her chest pain intensity de creased with use of nitroglycerin, after 15 minutes she took another dose when she noticed her chest pain was not getting better at that time she was sitting in a chair, she also took aspirin which relieved her pain. She is not able to clearly define whether this pain is similar to the chest pain when stent was placed. She was brought to the ER for further evaluation Cardiology was consulted Dr. Dickinson has evaluated her in the ER EKG nonspecific changes, troponin without significant delta patient is chest pain-free at the time of my evaluation, hypertensive episodes noted in the ER Review of Systems Const: Denies: fever(s) Eyes: Denies: change in vision ENMT: Denies: throat pain Card: Reports: chest pain Resp: Denies: dyspnea GI: Denies: abdominal pain : Denies: flank pain Musc: Reports: back pain Skin/Breast: Denies: skin swelling or changing lesions Neuro: Denies: headache(s) Psych: Denies: anxiety Endo: Denies: polyuria Giuseppe/Lymph: Denies: easy bruising All/Imm: Denies: urticaria Medications/Allergies Home Medications Medication Instructions Recorded Confirmed Last Taken Type aspirin 81 mg tablet,delayed 81 mg PO BEDTIME 05/10/21 05/23/21 05/22/21 History release isosorbide mononitrate 30 mg 60 mg PO QAM 05/10/21 05/23/21 05/22/21 History tablet,extended release 24 hr levothyroxine 100 mcg tablet 100 mcg PO QAM 05/10/21 05/23/21 05/22/21 History (Synthroid) simvastatin 20 mg tablet 20 mg PO BEDTIME 05/10/21 05/23/21 05/22/21 History clopidogrel 75 mg tablet 75 mg PO BEDTIME #90 tab 05/21/21 05/23/21 05/22/21 Rx nitroglycerin 0.4 mg sublingual 0.4 mg SUBLINGUAL Q5M PRN #30 tab 05/21/21 05/23/21 Unknown Rx tablet (Nitrostat) Allergies Allergy/AdvReac Type Severity Reaction Status Date / Time codeine Allergy Unconscious Verified 05/23/21 10:15 PFSH Acute PFSH: Medical History Chest pain Hyperlipidemia Hypothyroidism Surgical History (Updated 05/23/21 @ 15:36 by Adama Pena MD) History of PTCA x 2, 2009 and 2021 Hx of heart artery stent Hx of tubal ligation Family History Mother CAD (coronary artery disease) Father CAD (coronary artery disease) [place] at 64/ Denies family history of Diabetes Clotting disorder Dementia Chronic kidney disease (CKD) Suicide Anesthesia complication Bleeding disorder Lung disease Cancer Stroke Social History Smoking and tobacco status: former smoker Alcohol intake: never Vitals/I&O/Wt Last Vital Signs Temp 98.1 F 05/23/21 07:25 Pulse 64 05/23/21 11:34 Resp 17 05/23/21 11:34 BP 118/72 05/23/21 11:34 Pulse Ox 95 05/23/21 11:34 Weight last 48 hrs Weight 56.699 kg Physical Exam Narrative: EXAM NARRATIVE: Very pleasant cooperative elderly female Appears to today's Appears comfortable No active chest pain S1, S2 No murmur Nonfocal neuro exam Stridor Room air Abdomen soft Nonlabored breathing Appropriate mood and affect Data : 05/23/21 07:25 05/23/21 07:25 A&P Assessment and plan (1) Angina pectoris, unstable: Status: Acute Plan Chronic angina Recurrent chest pain Check D-dimer Currently chest pain-free On room air Not tachycardic Recent PCI [facility] Established coronary disease Patient Dr. Coronel We will follow up with cardio recommendations EKG without significant changes Troponin without symptoms delta Continue aspirin, Plavix, atorvastatin, Continue levothyroxine for hypothyroidism Echo limited to see wall motion abnormality and rule out pericardial effusion Patient is stating that she has not missed any of her medication Recent PCI to RCA previous history of stent in LAD Cardiac diet for now, JOB BOSS after midnight in case she goes for any intervention or stress test Full code DVT prophylaxis Lovenox Attestations Medical Necessity Statement*: Patient needs cardiology evaluation Time Spent in Patient Care: 35mins Coding Level of Care Code Acute Belt Measurer for Yuniel Quiroga Diagnoses Angina pectoris, unstable I20.0
[2021-05-23] MEDS: enoxaparin 40 mg/0.4 mL Syringe SUBCUT (12:16)
--- NOTE | 2021-05-23 13:34 | ECG_ITS ---
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 Measurements Intervals [place] Rate: 65 P: 84 AL: 150 QRS: 55 QRSD: 80 T: 0 QT: 373 QTc: 390 Interpretive Statements SINUS RHYTHM NONSPECIFIC ST & T-WAVE ABNORMALITY Compared to ECG 05/10/2021 06:47:23 No significant changes Electronically Signed On 05-24-2021 0:11:58 GATE TENDER by Phyllis Coronel M.D. [id number]
[2021-05-23 14:15] LABS: Troponin 5 6HR Delta 0 ng/L (0-12)
--- NOTE | 2021-05-23 15:41 | USCV_ITS ---
Lakesha Robb Age: 75 Gender: F : 1945 Exam Date: 05/23/2021 16:10 Ordering Phys: Adama Pena MD Technologist: ANGELITO [place]am Location[place] [facility] [place] Indication: Chest pain, h/o CAD with recent stent BP: 128 / 76 HR: 60 Rhythm: Sinus Technical Quality: Good MEASUREMENTS (Male / Female) Normal Values 2D ECHO LV Diastolic Diameter PLAX 4.2 cm 4.2 - 5.9 / 3.9 - 5.3 cm LV Systolic Diameter PLAX 2.7 cm IVS Diastolic Thickness 1.2 cm 0.6 - 1.0 / 0.6 - 0.9 cm IVS Systolic Thickness 1.7 cm LVPW Diastolic Thickness 1.1 cm 0.6 - 1.0 / 0.6 - 0.9 cm LVPW Systolic Thickness 1.7 cm LVOT Diameter 1.8 cm LV Ejection Fraction 2D Teich 66.5 % LV Ejection Fraction MOD 2C 65.8 % LV Ejection Fraction 2C AL 66.8 % LA Diameter 3.3 cm LA Width 2.8 cm LA Height 4.3 cm RA Width 3.6 cm RA Height 3.8 cm Aorta at Sinotubular Diameter 3.0 cm M-MODE Aortic Annulus Diameter 2.8 cm LA Ao Ratio MM 1.3 MV E Point Septal Separation 0.5 cm DOPPLER AV Peak Velocity 108.0 cm/s LVOT Peak Velocity 94.0 cm/s AV Area Cont Eq vti 2.2 cm squared AV Area Cont Eq pk 2.1 cm squared MV Area PHT 3.2 cm squared Mitral E to A Ratio 0.7 MV E' Velocity 32.0 cm/s Mitral E to MV E' Ratio 7.4 Mitral E to LV E' Lateral Ratio 7.1 Mitral E to LV E' Septal Ratio 7.7 TR Peak Velocity 210.7 cm/s TR Peak Gradient 17.8 mmHg TV Peak E Velocity 45.0 cm/s Right Atrial Pressure 5.0 mmHg Pulmonary Artery Systolic Pressu 22.8 mmHg PV Peak Velocity 92.0 cm/s RV Acceleration Time 0.1 s RV Ejection Time 0.3 s RV AcT/ET 0.2 FINDINGS Left Ventricle Normal left ventricular size, systolic function and upper normal wall thickness, with no regional wall motion abnormalities. Left ventricular ejection fraction is estimated at 60 %. Normal diastolic function. Right Ventricle Normal right ventricular size and systolic function. Right ventricular systolic pressure 22.8 mmHg. Right Atrium Normal right atrial size. Right atrial pressure estimated at 3 mm Hg. Left Atrium Normal left atrial size. Mitral Valve Mildly thickened mitral valve. No mitral valve stenosis. No mitral valve regurgitation. Aortic Valve Structurally normal trileaflet aortic valve. No aortic valve stenosis. No aortic valve regurgitation. Tricuspid Valve Structurally normal tricuspid valve. No tricuspid valve stenosis. Trace to mild tricuspid valve regurgitation. Pulmonic Valve Structurally normal pulmonic valve. No pulmonary valve stenosis. No significant pulmonary valve regurgitation. Pericardium No pericardial effusion. Aorta Normal size aortic root and proximal ascending aorta. Normal sized inferior vena cava with normal respiratory variation. CONCLUSIONS 1. Normal left ventricular size, systolic function and upper normal wall thickness, with no regional wall motion abnormalities. Left ventricular ejection fraction is estimated at 60 %. Normal diastolic function. 2. Normal right ventricular size and systolic function. 3. Normal pulmonary artery pressure. 4. No significant valvular abnormality. 5. No prior similar studies to compare. Monica Malik MD (Electronically Signed) Final Date: 23 May 2021 19:49 S
--- NOTE | 2021-05-23 16:47 | PC.NURSE ---
Patient arrived to the floor from ER via stretcher. Patient is alert and oriented x4. Patient has family at bedside. VS are WNL> No chest pain sense arrival to the hospital. Nurse will continue to monitor.
[2021-05-23 17:47] LABS: D Dimer 0.47 ug/mIFEU (0-0.59)
--- NOTE | 2021-05-23 19:01 | PC.NURSE ---
Dr Malik on floor to see patient. Received verbal orders to give a daily dose of plavix and aspirin now. Also to change isosorbide to 30mg twice daily. RBVO.
[2021-05-23] MEDS: clopidogrel 75 mg Tablet PO (19:47)
[2021-05-23] MEDS: atorvastatin 40 mg Tablet 20 MG PO (19:47)
[2021-05-23] MEDS: isosorbide mononitrate ER 30 mg Tablet PO (19:47)
[2021-05-23] MEDS: aspirin 81 mg EC Tablet PO (19:47)
--- NOTE | 2021-05-23 19:56 | PC.NURSE ---
Received report from NIMESH Loomis. Patient resting in bed with family at bedside. Discussed plavix and aspirin with patient to include dose and side effects. Patient verbalized understanding. Patient denies pain or needs. No distress observed. Will continue to monitor.
[2021-05-24 02:04] VITALS: BP 117/86; PULSE 72; RESP 25; TEMP 36.4; O2SAT 99
[2021-05-24] MEDS: nitroglycerin 0.4 mg sublingual Tablet SUBLINGUAL (02:07)
[2021-05-24 03:50] LABS: Basophils % 0.5 %; Hematocrit 36.2 % (37.0-47.0); Hemoglobin 11.8 g/dL (11.5-15.3); Lymphocytes # 1.6 10^3/uL (0.8-4.8); Lymphocytes % 28.7 %; Mean Corpuscular HGB Conc 32.6 g/dL (30.0-36.0); Mean Corpuscular Hemoglobin 31.7 pg (28.0-34.0); Mean Corpuscular Volume 97.3 fl (81-99); Mean Platelet Volume 9.6 fL (7.4-10.4); Monocytes # 0.5 10^3/uL (0.2-0.9); Monocytes % 8.8 %; Neutrophils # 3.42 10^3/uL (1.8-7.7); Neutrophils % 61.8 %; Nucleated Red Blood Cells % 0 %; Platelet Count 262 10^3/cmm (130-400); Red Blood Count 3.72 10^6/uL (4.1-5.3); Red Cell Distribution Width 11.9 % (12.1-15.1); White Blood Count 5.5 10^3/uL (4.0-10.0)
--- NOTE | 2021-05-24 03:53 | PC.NURSE ---
Patient reports having chest pain every morning between [id number]. Patient sat on edge of bed for a few minutes and she reported pain resolved. No other complaints of chest pain this am. No distress observed. Will continue to monitor.
[2021-05-24 04:00] VITALS: BP 113/70; PULSE 60; RESP 14; TEMP 36.7; O2SAT 94
[2021-05-24 04:27] LABS: Alanine Aminotransferase 6 U/L (0-33); Albumin Level 3.9 g/dL (3.5-5.2); Alkaline Phosphatase 63 IU/L (35-105); Anion Gap 14.8 (5-19); Aspartate Amino Transferase 12 U/L (0-32); Blood Urea Nitrogen 15 mg/dL (8-23); Calcium 9.6 mg/dL (8.5-10.5); Carbon Dioxide 22 mmol/L (22-29); Chloride 106 mmol/L (98-107); Globulin 2.6 g/dL (1.3-4.6); Glucose 94 mg/dL (65-115); Magnesium 2.1 mg/dL (1.7-2.3); Osmolality Calculated 289 mOsm/kg (285-295); Potassium 3.8 mmol/L (3.5-5.1); Sodium 139 mmol/L (136-145); Total Bilirubin 0.5 mg/dL (0.15-1.2); Total Protein 6.5 g/dL (6.6-8.7)
[2021-05-24] MEDS: levothyroxine 100 mcg Tablet PO (05:56)
[2021-05-24 06:00] VITALS: PULSE 56
--- NOTE | 2021-05-24 07:19 | PM.PN ---
Subjective Subjective: Interval history: 1 episode of chest discomfort last night around midnight that lasted for few minutes and resolved before she took nitroglycerin On talking to the patient seems like most of her episodes happen around midnight to instructional specialist hours. Medications: Medication Review Details: Current Medications Amlodipine Besylate (Amlodipine 5 Mg Tablet) 2.5 mg PO DAILY [facility] Last Admin: 05/24/21 08:06 Dose: 2.5 mg Documented by: Aspirin (Aspirin 81 Mg Ec Tablet) 81 mg PO DAILY [facility] Last Admin: 05/24/21 08:06 Dose: 81 mg Documented by: Atorvastatin Calcium (Atorvastatin 40 Mg Tablet) 20 mg PO BEDTIME [facility] Last Admin: 05/23/21 19:47 Dose: 20 mg Documented by: Clopidogrel Bisulfate (Clopidogrel 75 Mg Tablet) 75 mg PO DAILY [facility] Last Admin: 05/24/21 08:06 Dose: 75 mg Documented by: Enoxaparin Sodium (Enoxaparin 40 Mg/0.4 Ml Syringe) 40 mg SUBCUT Q24H [facility] Last Admin: 05/23/21 12:16 Dose: 40 mg Documented by: Isosorbide Mononitrate (Isosorbide Mononitrate Er 30 Mg Tablet) 30 mg PO ,21 [facility] Last Admin: 05/24/21 08:06 Dose: 30 mg Documented by: Levothyroxine Sodium (Levothyroxine 100 Mcg Tablet) 100 mcg PO QAM [facility] Last Admin: 05/24/21 05:56 Dose: 100 mcg Documented by: Morphine Sulfate (Morphine Ir 15 Mg Tablet) 15 mg PO Q6H PRN PRN Reason: pAIN Nitroglycerin (Nitroglycerin 0.4 Mg Sublingual Tablet) 0.4 mg SUBLINGUAL Q5M PRN PRN Reason: Chest Pain Last Admin: 05/24/21 02:07 Dose: 1 bottle Documented by: Ondansetron HCl (Ondansetron 2 Mg/Ml Sdv 2 Ml) 4 mg IVP Q6H PRN PRN Reason: NAUSEA AND VOMITING Senna/Docusate Sodium (Sennosides-Docusate Tablet) 1 tab PO DAILY [facility] Last Admin: 05/24/21 08:06 Dose: 1 tab Documented by: Vitals/I&O/Wt Last Vital Signs Temp 98.1 F 05/24/21 04:00 Pulse 56 L 05/24/21 06:00 Resp 14 05/24/21 04:00 BP 113/70 05/24/21 04:00 Pulse Ox 94 05/24/21 04:00 05/23/21 05/24/21 05/24/21 22:59 06:59 14:59 Intake Total 120 / 120 150 / 270 Balance 120 / 120 150 / 270 Weight last 48 hrs Weight 125 lb Weight 125 lb Physical Exam Narrative: EXAM NARRATIVE: GENERAL: Averagely built and averagely nourished in no acute distress HEENT: Pupils equal round reactive to light. No pallor or icterus. NECK:No JVD, No carotid bruit. CARDIOVASCULAR SYSTEM: S1-S2 regular. No murmur rubs or gallops. RESPIRATORY SYSTEM: Chest clear to auscultation. No wheezes rhonchi or rubs heard.No use of accessory muscles. ABDOMEN: Soft, nontender and nondistended. Normal bowel sounds present. EXTREMITIES: No cyanosis. No edema. No signs of chronic venous insufficiency. ROPEWALK ROPE MAKER: Patient is alert oriented ?3. No focal neurological deficits. Data : 05/24/21 02:25 05/24/21 02:25 A&P Assessment and plan (1) Chest pain: In setting of vasospastic angina -recent RCA ADEEL -No records were obtained -Imdur 30 mg twice a day and start amlodipine 2.5 mg daily with plan to update titrate based on blood pressure and heart rate log. -Patient is due to start cardiac rehab at [facility] next week. -Echocardiogram with normal LV function with no regional wall motion normality. I spoke to patient her and her son on multiple occasions yesterday evening and this morning. They are agreeable with the plan. -Follow-up in 1 to 2 weeks with our nurse practitioner. Status: Acute (2) Atherosclerotic heart disease of [place] coronary artery with other forms of angina pectoris: continue DAPT and statin Status: Acute (3) Hyperlipidemia: Status: Acute (4) Hypothyroidism: Status: Acute Attestations Medical Necessity Statement*: Stable to be discharged home Time Spent in Patient Care: 20 Coding Level of Care Code Established Pt Acute Marketing And Promotions Manager for Yuniel Fwd Patient Type Established History Detailed Exam Detailed Medical Decision Making Moderate Complexity Diagnoses Chest pain R07.9 Atherosclerotic heart disease of [place] coronary artery with other forms of angina pectoris I25.118 Hyperlipidemia E78.5 Hypothyroidism E03.9
[2021-05-24] MEDS: sennosides-docusate Tablet 1 TAB PO (08:06)
[2021-05-24] MEDS: aspirin 81 mg EC Tablet PO (08:06)
[2021-05-24] MEDS: isosorbide mononitrate ER 30 mg Tablet PO (08:06)
[2021-05-24] MEDS: clopidogrel 75 mg Tablet PO (08:06)
[2021-05-24] MEDS: amlodipine 5 mg Tablet 2.5 MG PO (08:06)
[2021-05-24 09:57] VITALS: BP 124/79; PULSE 66; RESP 15; TEMP 36.5; O2SAT 94
--- NOTE | 2021-05-24 11:16 | P.DS_ITS ---
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 Coronel about 2 days ago presented today with chief complaint of chest pain.? 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 Her chest pain mostly happened at the time of rest this morning around 3 AM she woke up with chest pain which she describing as diffuse achy chest discomfort which was radiating to her left shoulder she did not experience any nausea, vomiting or diaphoresis.? Her chest pain intensity decreased with use of nitroglycerin, after 15 minutes she took another dose when she noticed her chest pain was not getting better at that time she was sitting in a chair, she also took aspirin which relieved her pain.? She is not able to clearly define whether this pain is similar to the chest pain when stent was placed. She was brought to the ER for further evaluation Cardiology was consulted Dr. Malik has evaluated her in the ER EKG nonspecific changes, troponin without significant delta patient is chest pain-free at the time of my evaluation, hypertensive episodes noted in the ER Hospital course Patient was admitted for management and evaluation of her chronic unstable ang cintia. Echo did not show any wall motion abnormality, troponin without significant delta, EKG without ischemic or infarctive changes. During hospitalization she also had chest pain at midnight which resolved on its own. Track Repair Supervisor Dr. Malik recommended outpatient follow-up, records were obtained from the outside facility, amlodipine and Imdur intentional were added at the time of discharge. Most likely etiology of her chronic unstable angina is vasospastic, patient will resume her aspirin Plavix for her recent RCA ADEEL Physical Exam Narrative: EXAM NARRATIVE: Patient was sitting comfortably Saturating well on room air Abdomen soft S1 S2 Nonfocal neuro exam Saturating well on room air No reproducible chest pain EOMI, PERRLA Awake alert oriented x3 GCS 15 Discharge Data Studies Completed and Pending Completed Studies During Hospitalization Category Date Time Status XR chest 1V portable [id number] Stat Exams 05/23/21 07:34 Completed US echo complete [CV. echo complete* [id number]] Routine Ultrasound 05/23/21 15:41 Completed Radiology Impressions Chest X-Ray 05/23/21 07:34 IMPRESSION: Mild chronic emphysema. No pneumonia. Laboratory Results WBC 5.5 10^3/uL (4.0-10.0) 05/24/21 02:25 RBC 3.72 10^6/uL (4.1-5.3) L 05/24/21 02:25 Hgb 11.8 g/dL (11.5-15.3) 05/24/21 02:25 Hct 36.2 % (37.0-47.0) L 05/24/21 02:25 MCV 97.3 fl (81-99) 05/24/21 02:25 MCH 31.7 pg (28.0-34.0) 05/24/21 02:25 MCHC 32.6 g/dL (30.0-36.0) 05/24/21 02:25 RDW 11.9 % (12.1-15.1) L 05/24/21 02:25 Plt Count 262 10^3/cmm (130-400) 05/24/21 02:25 MPV 9.6 fL (7.4-10.4) 05/24/21 02:25 Neut % (Auto) 61.8 % 05/24/21 02:25 Lymph % (Auto) 28.7 % 05/24/21 02:25 [place] % (Auto) 8.8 % 05/24/21 02:25 Eos % (Auto) 0.0 % 05/24/21 02:25 Baso % (Auto) 0.5 % 05/24/21 02:25 Neut # (Auto) 3.42 10^3/uL (1.8-7.7) 05/24/21 02:25 Lymph # (Auto) 1.6 10^3/uL (0.8-4.8) 05/24/21 02:25 [place] # (Auto) 0.5 10^3/uL (0.2-0.9) 05/24/21 02:25 Eos # (Auto) 0.0 10^3/uL (0.0-0.8) 05/24/21 02:25 Baso # (Auto) 0.0 10^3/uL (0.0-0.1) 05/24/21 02:25 Nucleated RBC % (auto) 0 % 05/24/21 02:25 Nucleated RBCs # 0.0 /100WBC 05/24/21 02:25 D-Dimer 0.47 ug/mIFEU (0-0.59) 05/23/21 17:00 Sodium 139 mmol/L (136-145) 05/24/21 02:25 Potassium 3.8 mmol/L (3.5-5.1) 05/24/21 02:25 Chloride 106 mmol/L (98-107) 05/24/21 02:25 Carbon Dioxide 22 mmol/L (22-29) 05/24/21 02:25 Anion Gap 14.8 (5-19) 05/24/21 02:25 BUN 15 mg/dL (8-23) 05/24/21 02:25 Creatinine 0.7 mg/dL (0.5-0.9) 05/24/21 02:25 GFR Calculation Not Reportable 05/24/21 02:25 Glucose 94 mg/dL (65-115) 05/24/21 02:25 Calculated Osmolality 289 mOsm/kg (285-295) 05/24/21 02:25 Calcium 9.6 mg/dL (8.5-10.5) 05/24/21 02:25 Magnesium 2.1 mg/dL (1.7-2.3) 05/24/21 02:25 Total Bilirubin 0.5 mg/dL (0.15-1.2) 05/24/21 02:25 AST 12 U/L (0-32) 05/24/21 02:25 ALT 6 U/L (0-33) 05/24/21 02:25 Alkaline Phosphatase 63 IU/L (35-105) 05/24/21 02:25 Creatine Kinase 34 U/L (26-192) 05/23/21 07:25 Troponin T Baseline 6 ng/L (0-10) 05/23/21 07:25 Troponin T 120 Minute < 6 ng/L (0-10) 05/23/21 09:18 Delta Troponin T -0.72395 ABS# (0-10) L 05/23/21 09:18 Troponin T Hi Sens 6Hr 6.00 ng/L (0-10) 05/23/21 13:28 Troponin T Hi Sens 6Hr Delta 0 ng/L (0-12) 05/23/21 13:28 Total Protein 6.5 g/dL (6.6-8.7) L 05/24/21 02:25 Albumin 3.9 g/dL (3.5-5.2) 05/24/21 02:25 Globulin 2.6 g/dL (1.3-4.6) 05/24/21 02:25 Vitals Last Vital Signs Temp 97.7 F 05/24/21 09:57 Pulse 66 05/24/21 09:57 Resp 15 05/24/21 09:57 BP 124/79 05/24/21 09:57 Pulse Ox 94 05/24/21 09:57 Discharge Plan Discharge Patient Disposition: Home Condition: Stable Prescriptions: New amlodipine 5 mg Tablet 2.5 mg PO DAILY Qty: 30 3RF isosorbide mononitrate 30 mg Tablet Extended Release 24 Hr 30 mg PO Qty: 60 3RF Continued Nitrostat 0.4 mg tablet, sublingual 0.4 mg SUBLINGUAL Q5M PRN (Reason: Chest Pain) Qty: 30 5RF clopidogrel 75 mg tablet 75 mg PO BEDTIME Qty: 90 3RF levothyroxine [Synthroid] 100 mcg tablet 100 mcg PO QAM 0RF aspirin 81 mg Tablet,Delayed Release (Dr/Ec) 81 mg PO BEDTIME Qty: 30 3RF Changed isosorbide mononitrate 30 mg tablet extended release 24 hr 30 mg PO BID Qty: 60 3RF simvastatin 20 mg tablet 40 mg PO BEDTIME Qty: 30 3RF Discharge Orders: Discharge Order (Routine); Ordered 05/24/21 Ordered By: Adama Pena Referrals: Carine Malagon FNP [Primary Care Provider] - 05/31/21 9:00 am Erica Selby FNP [Nurse Practitioner] - 06/04/21 3:30 pm Discharge Diet: Cardiac Discharge Activity: Increase activity as tolerated Patient Instructions: Amlodipine (By mouth) (Hypertenipine-2.5, Norvasc), Isosorbide Mononitrate (By mouth) (Imdur, Imdur ER, Ismo), Opioid Safety Discharge Attestations Time Spent in Discharge Care*: other Quality Metrics Clinical Quality Measures [ No reported AMI, CVA or VTE this stay] Coding Level of Care Code Acute Chg FW MT note Diagnoses Chest pain R07.9 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
--- NOTE | 2021-05-24 11:58 | PC.CHAP ---
Pastoral Care Encounter/Spiritual Assessment Type of Contact [] Declined cheese maker visit [] Patient/Family/Request visit [] Outpatient visit [] Follow-up visit [] Physician referral [] Code/Alert [x] Routine visit [] Staff referral [] Actively dying [] Patient sleeping [] Family support [] [] Out of room [] Palliative care [] [x] Receiving care in room [] Pre-surgical visit [] Trauma [] Long length of stay [] ICU visit [] Other: Relational/Emotional Strength [x] Patient feels connected with others/family/visitors/staff [] Distress [] Loneliness/isolation [] Abandonment Spirituality of Patient [x] Person of Jacklyn [] Attends Rastafarian of their Jacklyn [] Believes in Prayer [] Reads Bible or Episcopal materials [] There are Spiritual issues to be addressed Cad Design Engineer Interventions [x] Prayer [x] Active listening [x] Non-anxious presence [x] Spiritual/emotional support [] Crisis/trauma care [x] Spiritual counseling [] Bereavement support [] Provided bereavement packet [] Provided Bible/devotional materials [] Provided toy/stuffed animal, coloring book to patient or family member [] Provided Communion [] Anointing/[place] [] Salvation [x] Completed spiritual assessment [] Other: Impact on Illness or Injury [] Angry [] Fearful [x] Anxious [] Often cries [] Exhaustion [x] Unable to work [] Unable to attend baptism [] Unable to walk/stand [] Unable to read [] Unable to drive [] Unable to eat/drink [] Unable to sleep [] Unable to be with family [] Patient intubated [] Other: Summary Senior had tests waiting on doctors report feels good going home Time spent with patient 10 mins
[2021-05-24 12:02] VITALS: BP 124/79; PULSE 66; RESP 15; TEMP 36.5; O2SAT 94
[2021-05-24 12:33] VITALS: BP 121/76; PULSE 75; RESP 18
--- NOTE | 2021-05-24 12:36 | PC.NURSE ---
discharge instructions provided, no questions or concerns. VS stable upon departure.
== END 2021-05-24 12:37 | disposition home or self-care (01) ==
LOC: ER 11:26 → CSU 16:17
PROVIDERS: Admitting Provider Internal Medicine; Emergency Provider Family Medicine; PCP Nurse Practitioner Family; Visit Provider Internal Medicine
DX: R07.9 Chest pain, unspecified (principal); I25.118 Atherosclerotic heart disease of native coronary artery with other forms of angina pectoris; E78.5 Hyperlipidemia, unspecified; E03.9 Hypothyroidism, unspecified; Z95.5 Presence of coronary angioplasty implant and graft; J43.9 Emphysema, unspecified; Z79.82 Long term (current) use of aspirin; Z82.49 Family history of ischemic heart disease and other diseases of the circulatory system; Z87.891 Personal history of nicotine dependence
CPT/HCPCS: 36415; 71045; 80053; 82550; 83735; 84484; 85025; 85378; 93005; 93306; 96372; 99285; G0378; J1650

== ENCOUNTER → 2021-06-07 11:47 | Outpatient (BNVA) | payer MEDICARE, OTHER, SELFPAY | PROVIDERS: PCP Nurse Practitioner Family; Visit Provider Nurse Practitioner Family | DX: E03.9 Hypothyroidism, unspecified (principal) | CPT/HCPCS: 84443 ==

== ENCOUNTER → 2021-07-17 11:04 | Outpatient (BNVA) | payer MEDICARE, OTHER, SELFPAY | PROVIDERS: PCP Nurse Practitioner Family; Visit Provider Nurse Practitioner Family | DX: I25.118 Atherosclerotic heart disease of native coronary artery with other forms of angina pectoris (principal); Z87.891 Personal history of nicotine dependence | CPT/HCPCS: 99213 ==

== ENCOUNTER → 2021-09-17 11:13 | Outpatient (BNVA) | payer MEDICARE, OTHER, SELFPAY | PROVIDERS: PCP Nurse Practitioner Family; Visit Provider Internal Medicine Cardiovascular Disease | DX: I25.118 Atherosclerotic heart disease of native coronary artery with other forms of angina pectoris (principal); E78.5 Hyperlipidemia, unspecified; R23.8 Other skin changes; E03.9 Hypothyroidism, unspecified; Z87.891 Personal history of nicotine dependence | CPT/HCPCS: 99214 ==

== ENCOUNTER → 2022-01-08 09:33 | Outpatient (BNVA) | payer MEDICARE, OTHER, SELFPAY | PROVIDERS: PCP Nurse Practitioner Family; Visit Provider Nurse Practitioner Family | DX: I25.118 Atherosclerotic heart disease of native coronary artery with other forms of angina pectoris (principal); R42 Dizziness and giddiness; E03.9 Hypothyroidism, unspecified; Z87.891 Personal history of nicotine dependence | CPT/HCPCS: 36415; 80048; 84443; 85025; 99214 ==

== ENCOUNTER → 2022-03-25 11:00 | Outpatient (BNVA) | payer MEDICARE, OTHER, SELFPAY | PROVIDERS: PCP Nurse Practitioner Family; Visit Provider Internal Medicine Cardiovascular Disease | DX: I25.118 Atherosclerotic heart disease of native coronary artery with other forms of angina pectoris (principal); E78.5 Hyperlipidemia, unspecified; E03.9 Hypothyroidism, unspecified; R23.8 Other skin changes; Z87.891 Personal history of nicotine dependence | CPT/HCPCS: 93005; 99214 ==

== ENCOUNTER → 2022-03-28 10:35 | Outpatient (BNVA) | payer MEDICARE, OTHER, SELFPAY | PROVIDERS: PCP Nurse Practitioner Family; Visit Provider Nurse Practitioner Family | DX: E78.5 Hyperlipidemia, unspecified (principal); D64.9 Anemia, unspecified; E11.9 Type 2 diabetes mellitus without complications; E03.9 Hypothyroidism, unspecified; R42 Dizziness and giddiness | CPT/HCPCS: 80053; 80061; 82607; 83550; 84439; 84443; 84481; 85025 ==

== ENCOUNTER 2022-04-25 10:19 | Emergency (ER) | payer MEDICARE, OTHER, SELFPAY ==
[2022-04-25 10:23] VITALS: BP 133/76; PULSE 70; RESP 13; TEMP 36.9; O2SAT 97; BMI 20.7
--- NOTE | 2022-04-25 10:36 | ECG_ITS ---
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 Measurements Intervals [place] Rate: 74 P: 74 LA: 153 QRS: 7 QRSD: 86 T: 2 QT: 361 QTc: 403 Interpretive Statements SINUS RHYTHM NONSPECIFIC ST & T-WAVE ABNORMALITY Compared to ECG 05/23/2021 07:34:39 No significant changes Electronically Signed On 04-25-2022 21:09:37 BOTTOMING ROOM INSPECTOR by Phyllis Coronel M.D. [id number]
--- NOTE | 2022-04-25 10:40 | XR_ITS ---
WS: [id number] Portable AP upright chest, 04/25/2022 Clinical Data: CHEST PAIN Comparison: Portable chest, 05/23/2021 Findings: No nodules, masses or effusions are seen. The heart is normal. The pulmonary vascularity is not increased. No pneumonia or pneumothorax is seen. The aortic arch and descending thoracic aorta s how tortuosity. Monitor leads are on the chest wall. XR/XR chest 1V portable [id number] Impression: Atherosclerosis.
[2022-04-25 10:55] LABS: Basophils % 0.4 %; Hematocrit 36.8 % (37.0-47.0); Hemoglobin 12.3 g/dL (11.5-15.3); Lymphocytes % 11.5 %; Mean Corpuscular HGB Conc 33.4 g/dL (30.0-36.0); Mean Corpuscular Hemoglobin 31.8 pg (28.0-34.0); Mean Corpuscular Volume 95.1 fl (81-99); Mean Platelet Volume 9.6 fL (7.4-10.4); Monocytes # 0.5 10^3/uL (0.2-0.9); Neutrophils # 7.39 10^3/uL (1.8-7.7); Neutrophils % 81.9 %; Nucleated Red Blood Cells % 0 %; Platelet Count 248 10^3/cmm (130-400); Red Blood Count 3.87 10^6/uL (4.1-5.3); Red Cell Distribution Width 11.9 % (12.1-15.1)
--- NOTE | 2022-04-25 11:08 | W.ED.CHESTPA ---
HPI - Chest Pain General: Chief Complaint: Chest Pain Stated Complaint: chest pain Time Seen by Provider: 04/25/22 10:57 History of Present Illness: Patient comes in with chest pain. States that about 3 hours prior to arrival this morning she developed midsternal chest pain which she describes as an ache. States it lasted about 30 minutes then went away after she took nitroglycerin. Denies any cold symptoms including no fever, cough, congestion, vomiting, or diarrhea. Patient states she had an angiogram about a year ago and had a stent placed at that time. States that since then she has been having off-and-on chest pain. She received aspirin in route. She is asymptomatic at this time. Associated symptoms: Deny abdominal pain, dyspnea, fever(s), nausea, palpitations or vomiting Review of Systems Const: Denies: fever(s) or body aches Eyes: Denies: change in vision or blurry vision ENMT: Denies: throat pain or odynophagia Card: Reports: chest pain; Denies: palpitations Resp: Denies: dyspnea or productive cough GI: Denies: abdominal pain, nausea or vomiting : Denies: flank pain or dysuria Musc: Denies: neck pain or back pain Skin/Breast: Denies: rash or pruritus Neuro: Denies: headache(s) or numbness in extremities Psych: Denies: anxiety or change in appetite Endo: Denies: polyuria or excessive sweating PFSH ED PFSH: Medical History Atherosclerotic heart disease of [place] coronary artery with other forms of angina pectoris Chest pain Hyperlipidemia Hypothyroidism Surgical History History of PTCA x 2, 2009 and 2021 Hx of heart artery stent Hx of tubal ligation Family History Mother CAD (coronary artery disease) Father CAD (coronary artery disease) [place] at 64/ Denies family history of Diabetes Clotting disorder Dementia Chronic kidney disease (CKD) Suicide Anesthesia complication Bleeding disorder Lung disease Cancer Stroke Social History Smoking and tobacco status: former smoker Alcohol intake: never Physical Exam Const: COMMON NORMALS: no acute distress, patient oriented x3, healthy appearing and alert HENMT: COMMON NORMALS: normocephalic and atraumatic HEAD & SCALP: normocephalic and atraumatic Eye: COMMON NORMALS: Equal, round and reactive pupils present and EOMs intact bilaterally PUPIL: Yes Equal, round and reactive pupils present Neck/C-Spine: COMMON NORMALS: full ROM and supple Resp: COMMON NORMALS: normal respiratory effort, No retractions and No use of accessory muscles Cardio: COMMON NORMALS: regular rate and regular rhythm RATE: regular rate RHYTHM: regular rhythm GI: COMMON NORMALS: Normal to inspection, nondistended, normoactive bowel sounds present, Soft to palpation and non-tender PALPATION: Yes Soft to palpation Back/Pelvis: COMMON NORMALS: thoracic and lumbar spine normal to inspection and no thoracic nor lumbar tenderness Extremity: COMMON NORMALS: normal to inspection and full ROM Neuro: COMMON NORMALS: patient oriented x3 SENSORIUM/ORIENTATION: Yes alert Psych: COMMON NORMALS: mental status grossly normal and cooperative Skin: COMMON NORMALS: no rashes or lesions noted and no wounds GENERAL SKIN EXAM: no rashes or lesions noted Course Vital Signs: Vital signs: Vital Signs Temperature 98.5 F 04/25/22 10:23 Pulse Rate 61 04/25/22 13:15 Respiratory Rate 21 H 04/25/22 13:15 Blood Pressure 118/73 04/25/22 13:15 Pulse Oximetry 97 04/25/22 13:15 Oxygen Delivery Me thod 04/25/22 11:22 MDM - Chest Pain Medical Decision Making Patient comes in with chest pain. States that about 3 hours prior to arrival this morning she developed midsternal chest pain which she describes as an ache. States it lasted about 30 minutes then went away after she took nitroglycerin. Denies any cold symptoms including no fever, cough, congestion, vomiting, or diarrhea. Patient states she had an angiogram about a year ago and had a stent placed at that time. States that since then she has been having off-and-on chest pain. She received aspirin in route. She is asymptomatic at this time. Physical exam is unremarkable. She is scheduled for a stress test in 2 weeks. We will check labs, EKG, and reassess. On reassessment I talked to the patient about the test results. Her troponin is negative x2. Will discharge home at this time with precautions return for worsening or changing symptoms. Lab Data 04/25/22 10:45 04/25/22 10:45 Radiology Impressions Chest X-Ray 04/25/22 10:40 Impression: Atherosclerosis. Laboratory Results WBC 9.0 10^3/uL (4.0-10.0) 04/25/22 10:45 RBC 3.87 10^6/uL (4.1-5.3) L 04/25/22 10:45 Hgb 12.3 g/dL (11.5-15.3) 04/25/22 10:45 Hct 36.8 % (37.0-47.0) L 04/25/22 10:45 MCV 95.1 fl (81-99) 04/25/22 10:45 MCH 31.8 pg (28.0-34.0) 04/25/22 10:45 MCHC 33.4 g/dL (30.0-36.0) 04/25/22 10:45 RDW 11.9 % (12.1-15.1) L 04/25/22 10:45 Plt Count 248 10^3/cmm (130-400) 04/25/22 10:45 MPV 9.6 fL (7.4-10.4) 04/25/22 10:45 Neut % (Auto) 81.9 % 04/25/22 10:45 Lymph % (Auto) 11.5 % 04/25/22 10:45 [place] % (Auto) 6.0 % 04/25/22 10:45 Eos % (Auto) 0.0 % 04/25/22 10:45 Baso % (Auto) 0.4 % 04/25/22 10:45 Neut # (Auto) 7.39 10^3/uL (1.8-7.7) 04/25/22 10:45 Lymph # (Auto) 1.0 10^3/uL (0.8-4.8) 04/25/22 10:45 [place] # (Auto) 0.5 10^3/uL (0.2-0.9) 04/25/22 10:45 Eos # (Auto) 0.0 10^3/uL (0.0-0.8) 04/25/22 10:45 Baso # (Auto) 0.0 10^3/uL (0.0-0.1) 04/25/22 10:45 Nucleated RBC % (auto) 0 % 04/25/22 10:45 Nucleated RBCs # 0.0 /100WBC 04/25/22 10:45 Sodium 139 mmol/L (136-145) 04/25/22 10:45 Potassium 3.8 mmol/L (3.5-5.1) 04/25/22 10:45 Chloride 106 mmol/L (98-107) 04/25/22 10:45 Carbon Dioxide 26 mmol/L (22-29) 04/25/22 10:45 Anion Gap 10.8 (5-19) 04/25/22 10:45 BUN 9 mg/dL (8-23) 04/25/22 10:45 Creatinine 0.7 mg/dL (0.5-0.9) 04/25/22 10:45 GFR Calculation Not Reportable 04/25/22 10:45 Glucose 92 mg/dL (65-115) 04/25/22 10:45 Calculated Osmolality 286 mOsm/kg (285-295) 04/25/22 10:45 Calcium 8.8 mg/dL (8.5-10.5) 04/25/22 10:45 Total Bilirubin 0.4 mg/dL (0.15-1.2) 04/25/22 10:45 AST 14 U/L (0-32) 04/25/22 10:45 ALT 8 U/L (0-33) 04/25/22 10:45 Alkaline Phosphatase 67 U/L (35-105) 04/25/22 10:45 Troponin T Baseline 6 ng/L (0-10) 04/25/22 10:45 Troponin T 120 Minute 7.12 ng/L (0-10) 04/25/22 13:23 Total Protein 6.7 g/dL (6.6-8.7) 04/25/22 10:45 Albumin 4.2 g/dL (3.5-5.2) 04/25/22 10:45 Globulin 2.5 g/dL (1.3-4.6) 04/25/22 10:45 Urine Color Light yellow (Yellow) 04/25/22 10:52 Urine Appearance Clear (CLEAR) 04/25/22 10:52 Urine pH 8 (5-7) H 04/25/22 10:52 Ur Specific [place] 1.010 (1.005-1.030) 04/25/22 10:52 Urine Protein Neg (Negative) 04/25/22 10:52 Urine Glucose (UA) Norm (Normal) 04/25/22 10:52 Urine Ketones Negative (Negative) 04/25/22 10:52 Urine Blood Neg (Negative) 04/25/22 10:52 Urine Nitrate Negative (Negative) 04/25/22 10:52 Urine Bilirubin Neg (Negative) 04/25/22 10:52 Prot Sulfosalicylic Acd Negative (Negative) 04/25/22 10:52 Urine Urobilinogen Neg mg/dL (Negative) 04/25/22 10:52 Ur Leukocyte Esterase Negative (Negative) 04/25/22 10:52 Discharge Plan Discharge Patient Disposition: Home Clinical Impression: Nonspecific chest pain Condition: Stable Prescriptions: No Action Nitrostat 0.4 mg tablet, sublingual 0.4 mg SUBLINGUAL Q5M PRN (Reason: Chest Pain) Qty: 30 5RF aspirin 81 mg tablet,delayed release (DR/EC) 81 mg PO BEDTIME Qty: 90 1RF clopidogrel 75 mg tablet 75 mg PO BEDTIME Qty: 90 3RF isosorbide mononitrate 30 mg tablet extended release 24 hr 30 mg PO BID Qty: 180 1RF amlodipine 5 mg tablet 5 mg PO DAILY Qty: 90 0RF simvastatin 40 mg tablet 40 mg PO BEDTIME Synthroid 100 mcg tablet 100 mcg PO DAILY Discharge Orders: Discharge ED (Routine); Ordered 04/25/22 Ordered By: Galindo Peres Referrals: Carine Malagon FNP [Primary Care Provider] - Coding Level of Care Code ED Advertisement Distributor for Chg Fwd Exam Comprehensive
[2022-04-25 11:13] LABS: Alanine Aminotransferase 8 U/L (0-33); Albumin Level 4.2 g/dL (3.5-5.2); Alkaline Phosphatase 67 U/L (35-105); Anion Gap 10.8 (5-19); Aspartate Amino Transferase 14 U/L (0-32); Blood Urea Nitrogen 9 mg/dL (8-23); Calcium 8.8 mg/dL (8.5-10.5); Carbon Dioxide 26 mmol/L (22-29); Chloride 106 mmol/L (98-107); Globulin 2.5 g/dL (1.3-4.6); Glucose 92 mg/dL (65-115); Osmolality Calculated 286 mOsm/kg (285-295); Potassium 3.8 mmol/L (3.5-5.1); Sodium 139 mmol/L (136-145); Total Bilirubin 0.4 mg/dL (0.15-1.2); Total Protein 6.7 g/dL (6.6-8.7)
[2022-04-25 11:22] VITALS: BP 109/78; PULSE 85; RESP 16; O2SAT 97
[2022-04-25 11:30] LABS: Add Urine Microscopic? NO; Charge for UA Resulting for Rev
[2022-04-25 11:39] LABS: Troponin(5th) Baseline 6 ng/L (0-10)
[2022-04-25 11:48] LABS: Urine Appearance Clear (CLEAR); Urine Color Light yellow (Yellow); pH Urine 8 (5-7)
[2022-04-25 11:49] LABS: Bilirubin Urine Neg (Negative); Blood Urine Neg (Negative); Glucose Urine UA Norm (Normal); Ketones Urine Negative (Negative); Leukocyte Esterase Urine Negative (Negative); Nitrate Urine Negative (Negative); Protein Urine Neg (Negative); Sulfosalicylic Acid Urine Negative (Negative); Urobilinogen Urine Neg (Negative)
--- NOTE | 2022-04-25 12:45 | ECG_ITS ---
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 Measurements Intervals [place] Rate: 63 P: 61 PA: 130 QRS: -4 QRSD: 87 T: -7 QT: 380 QTc: 391 Interpretive Statements SINUS RHYTHM NONSPECIFIC ST & T-WAVE ABNORMALITY Compared to ECG 04/25/2022 10:41:04 No significant changes Electronically Signed On 04-26-2022 20:40:28 CLASSER by Monica Malik M.D. [id number]
[2022-04-25 13:15] VITALS: BP 118/73; PULSE 61; RESP 21; O2SAT 97
[2022-04-25 13:51] LABS: Troponin 5 2HR 7.12 ng/L (0-10)
[2022-04-25 14:13] VITALS: BP 118/75; PULSE 89; RESP 16; O2SAT 98
[2022-04-25 14:18] LABS: Troponin 5 2HR Delta 1.12 ABS# (0-10)
== END 2022-04-25 14:21 | disposition home or self-care (01) ==
PROVIDERS: Family Medicine; Emergency Provider Emergency Medicine; PCP Nurse Practitioner Family
DX: R07.89 Other chest pain (principal); Z79.82 Long term (current) use of aspirin; Z79.02 Long term (current) use of antithrombotics/antiplatelets; E78.5 Hyperlipidemia, unspecified; Z87.891 Personal history of nicotine dependence
CPT/HCPCS: 71045; 80053; 81003; 84484; 85025; 93005; 99285

== ENCOUNTER → 2022-05-06 09:48 | Outpatient (BNVA) | payer MEDICARE, OTHER, SELFPAY | PROVIDERS: PCP Nurse Practitioner Family; Visit Provider Nurse Practitioner Family | DX: I25.118 Atherosclerotic heart disease of native coronary artery with other forms of angina pectoris (principal); Z87.891 Personal history of nicotine dependence; I25.2 Old myocardial infarction | CPT/HCPCS: 99213 ==

== ENCOUNTER 2022-06-04 07:16 | Outpatient (CLI) | payer MEDICARE, OTHER, SELFPAY ==
[2022-05-31 10:54] LABS: Basophils % 0.6 %; Hematocrit 38.2 % (37.0-47.0); Hemoglobin 12.6 g/dL (11.5-15.3); Lymphocytes # 1.3 10^3/uL (0.8-4.8); Lymphocytes % 19.5 %; Mean Corpuscular Hemoglobin 31.6 pg (28.0-34.0); Mean Corpuscular Volume 95.7 fl (81-99); Mean Platelet Volume 9.5 fL (7.4-10.4); Monocytes # 0.4 10^3/uL (0.2-0.9); Monocytes % 5.8 %; Neutrophils # 5.07 10^3/uL (1.8-7.7); Neutrophils % 73.7 %; Nucleated Red Blood Cells % 0 %; Platelet Count 252 10^3/cmm (130-400); Red Blood Count 3.99 10^6/uL (4.1-5.3); White Blood Count 6.9 10^3/uL (4.0-10.0)
[2022-05-31 11:12] LABS: INR 0.99 (0.83-1.21); Prothrombin Time (Patient) 13.4 Seconds (12.0-15.1)
[2022-05-31 11:18] LABS: Anion Gap 13.1 (5-19); Blood Urea Nitrogen 13 mg/dL (8-23); Calcium 9.4 mg/dL (8.5-10.5); Carbon Dioxide 27 mmol/L (22-29); Chloride 105 mmol/L (98-107); Glucose 97 mg/dL (65-115); Osmolality Calculated 292 mOsm/kg (285-295); Potassium 4.1 mmol/L (3.5-5.1); Sodium 141 mmol/L (136-145)
[2022-06-03 12:50] VITALS: BMI 20.6
[2022-06-04] VITALS (79 sets, daily range): BP systolic 94–138; BP diastolic 58–78; PULSE 51–79; RESP 7–28; TEMP 36.4; O2SAT 92–100; BMI 20.6
--- NOTE | 2022-06-04 07:30 | XACV_ITS ---
Exam Room: 2 Ht: 165 cm Wt: 56 kg BSA: 1.60 m2 Gender: Female : 1945 Any Known Allergies: Codeine Exam Priority: Routine Procedure(s): Procedure Description: Diagnostic procedure Procedure Description: Left Heart Catheterization Procedure Description: Coronary Angiography [facility]; Diagnostic Cath Status: Elective Diagnostic Findings * The left anterior descending artery is a medium caliber vessel which appears to wrap around the LV apex minimally. He was found to have moderate to heavy calcification in the proximal and mid segment. No significant stenotic lesions were noted. The second diagonal branch was found to have around 30 to 40% diffuse narrowing in the proximal segment. Moderate calcification was noted in the segment of the artery as well. * The left main is a medium caliber vessel with moderate calcification. No significant stenotic lesions were noted. * The left circumflex artery is a medium caliber vessel which appears to give off a high obtuse marginal branch. Mild to moderate diffuse disease is noted in the proximal segment of this artery. The second obtuse marginal branch also was found to have mild to moderate diffuse disease proximally. No other significant stenotic lesions were noted. The AV groove branch is relatively small caliber slender vessel with mild diffuse disease. * The right coronary artery is a medium caliber dominant vessel with moderate calcification in the proximal and mid segment. In the midsegment of the artery, at the takeoff of the first RV branch, there was a 60% stenotic lesion. The distal stented segment was found to be widely patent. PDA and the PLV branches are found to have minimal intimal irregularities. No significant obstructive lesions were noted. PCI Status: Elective Conclusions 1. 76-year-old white female with history of coronary disease, status post PCI of the left anterior descending artery and right coronary artery, presenting with recurrent episodes of chest pains. She had a most recent PCI in May 2021. For further evaluation of her symptoms, a Myocardial perfusion imaging was recommended. Apparently the patient had some reaction with medications in the past and is refusing to undergo a stress test. In view of her ongoing symptoms and multiple previous PCI, for further evaluation of her coronary status, cardiac catheterization was thought to be the next appropriate diagnostic modality. The patient underwent left heart catheterization and right coronary angiogram today. The findings are as follows. 2. Moderate disease in the mid segment of the right coronary artery. The distal RCA was found to have a patent stented segment. Moderate to heavy calcification noted in the proximal segments of the left artery descending artery and right coronary artery. LVEDP of 9 mmHg. To further evaluate the functional significance of the mid RCA lesion, and IFR was thought to be appropriate. I reviewed and discussed the cardiac catheterization data with the Dr. Triplett who agreed with this plan. Diagnostic RX Recommendation: other cardiac therapy w/o CABG/PCI LV EDP: 9 mmHg Left Ventriculography Findings: * The LV gram was not performed because of the concern about dye overload. The LVEDP was found to be 9 mmHg. Pressures Phase:Rest AO : 90 / 57 ( 73 ) @ 8:36:00 AM 113 / 52 ( 77 ) @ 8:47:00 AM 108 / 52 ( 76 ) @ 8:47:00 AM LV : 114 / -13 / 9 @ 8:46:00 AM 112 / -14 / 7 @ 8:47:00 AM Valves Phase:DefaultPhase AV : 2.0 @ 9:09:25 AM 2.0 @ 9:09:25 AM AV Mean Gradient: 0.0 @ 9:09:25 AM 0.0 @ 9:09:25 AM Clinical Evaluation EBL: 5mL-10mL Procedural Details Procedure Consent Obtained. Admit Source: Out Patient. Pre-Procedure Time Out. Identified patient by full name and date of as verbalized by the patient/guarantor. Does the consent match the physician's order: Yes. Accurate & Complete Informed Consent: Yes. Inpatient/Outpatient History & Physical on Chart: Yes. If H&P is completed, is and addenduem needed: No; If yes, is the addendum complete: N/A. Visualize and Verify Site with Patient/Guarantor: N/A. Relevant Radiology Images available: N/A. The risks, benefits, and alternatives of sedation and/or procedure were discussed by physician. The patient agrees to continue. Procedure started. [facility] Clinical Fraility Score: 4: Vulnerable. Fingernail Technician Indications: Worsening Angina. Chest Pain Symptom Assessment: Typical Angina Symptoms. Cardiovascular Instability: No. Correct patient, site and procedure confirmed by cath team. PERRLA. Strong, equal hand ship/rec/doc control bilaterally. Lungs clear x 5 lobes. IV Site on Arrival: 20 gauge in the right anticubital. IV Fluids: 0.9% NaCl at KVO. 0 mL infused prior to crime lab technician. Pre Procedural Pulses: bilateral dorsalis pedis was 3+. Pre Procedural Pulses: bilateral posterior tibial was 2+. Pre Procedural Pulses: bilateral radial was 2+. Oxygen started at 2liters/min via nasal canula. right groin was prepped with chloroprep then draped in the usual sterile fashion. right radial was prepped with chloroprep then draped in the usual sterile fashion. Physician notified. Baseline sample Acquired. HR: 68 BPM. Physician arrived. Physician scrubbed in. Immediate Pre-Procedure Time Out. Correct Patient: Yes; Correct Procedure: Yes; Correct Site: Yes; Correct Patient Position: Yes; Correct Supplies: Yes; Dried Flammable Prep: Yes; Blood Products Available: N/A;. Lidocaine 1% infiltrated to the right groin. Arterial access obtained with micropuncture set. A 5 indonesian JL4 catheter in over wire. Catheter out over the wire. A 5 indonesian JL5 catheter in over wire. Multiple views taken of left coronary artery. Catheter out. A 5 indonesian JR4 catheter in over wire. Multiple views taken of right coronary artery. Catheter out. A 5 indonesian Angled Pig catheter in over wire. EDP Sample taken: LV 114/-14,9; HR: 63 BPM; SpO2: 100%. Pullback taken: LV 112/-15,7; AO 113/52(77); Mean: 0mmHg, Peak to Peak: 2mmHg, SEP: 17sec/min; HR: 62 BPM; SpO2: 99%. Catheter out. Side port of sheath attached to Normal Saline flush at KVO to maintain patency. Physician review of cine films. A Suture was successful obtaining hemostatsis at the Right Femoral artery insertion site. Physician scrubbed out. Patient planned for FFR at later time d/t emergency being done by Twisting Frame Changer at this time. Sheath(s) sutured into position with 2-0 silk and sterile 4x4's and Op-site applied over the site. No oozing or signs and symptoms of hematoma noted. Arterial sheath flushed and connected to tranducer and pressure bag with heparinized saline. Post Procedure: Pulses reassessed and unchanged. PERRLA. Strong, equal hand ship/rec/doc control bilaterally. No VTE prophylaxis required. Medication waste: Heparin- 2500 units Fentanyl- 75 mcg. Total IV fluids: 327 mL. Fluoro: 6:02. Contrast type used: Omnipaque 300 mg/mL, 150 mL bottle. [id number]. Post-op diagnosis: CAD, MID RCA STENOSIS; PLANNED IFR/FFR. Complications: None. Estimated blood loss: 5mL-10mL. Responsiveness - Normal response to verbal stimuli; alert and oriented, PERRLA. Airway - Unaffected, no intervention required; spontaneous ventilation. Circulation: W/N/L, pulses unchanged. Nausea/Vomiting: No. Procedure completed. Patient transferred by bed to CPRU. Access Site Site: Right Femoral artery Sheath Size: 5 Fr Hemostasis Method: Suture Hemostasis Success: Successful Procedure Medications Start: 8:17 AM Stop: 8:17 AM Medication: Versed 1 mg and Fentanyl 25 mcg Amount: 1 Route: I.V. Start: 8:21 AM Stop: 8:21 AM Medication: 0.9% Saline Amount: 250 ml Route: I.V. bolus Start: 8:28 AM Stop: 8:28 AM Medication: Versed Amount: 1 mg Route: I.V. Start: 8:30 AM Stop: 8:30 AM Medication: Heparin Amount: 1500 units Route: I.V. I, the attending physician, have reviewed and verified all procedure medications. Yes, all medications given per verbal order History/Risk Factors Hypertension: No Dyslipidemia: No Peripheral Arterial Disease (PAD): No Myocardial Infarction (NM): No Obesity: No Prior Interventions PCI: No Valve Surgery: No Report Signatures Finalized by Dr Phyllis Coronel MD [facility] on 06/04/2022 12:31 PM
[2022-06-04] MEDS: diphenhydrAMINE 50 mg Capsule PO (07:52)
--- NOTE | 2022-06-04 07:57 | W.PM.OPSUD ---
Surgery/Procedure H&P Update DATE OF PROCEDURE: June 04, 2022 DATE H&P PERFORMED: 05/06/22 H&P UPDATE INFORMATION: I have reviewed H&P completed within last 30 days, I have examined patient prior to procedure and No changes to prior documentation PREOP DIAGNOSIS: ASHD PRIMARY INDICATION FOR PROCEDURE: recurrent episodes of chest pains/ASHD/multiple PCIs , HTN/ Dyslipidemia PLANNED PROCEDURE: Operation Date: 06/04/22 08:30 Proposed Procedures p 37008 Left Heart Cath, I25.2(Left) - Phyllis Coronel MD PATIENT REASSESSED PRIOR TO SEDATION, WITH NO CHANGE NOTED: Yes PHYSICAL EXAM: alert, oriented x 3, clear to auscultation bilaterally and regular rate & rhythm AIRWAY EVAL/ANESTHESIA PLAN: normal airway, see other exam findings, ASA III, Monitored Anesthesia, Local Anesthesia, Risks, benefits & alternatives of sedation and/or procedure discussed and Patient agrees to continue as planned
--- NOTE | 2022-06-04 09:18 | PC.NURSE ---
Patient transferred from laborer operator to room CPRU 4 with sutured in 5fr sheath to right groin. Plan is for patient to go back to cath for interventionalist to perform IFR of lesion. Due to fingernail sculptor in emergency case, patient was brought to cpru [address] until intervention can be performed. Right femoral sheath sutured with pressure bag. Site is asymptomatic. No signs of bleeding or hematoma. Pt placed on bedside fermenter helper, vitals 115/72, HR 61, O2 sat 97% on room air, RR 16. Pt drowsy and responds to verbal stimuli. Denies pain, multiple family members at bedside. Family updated by Dr. Coronel.
--- NOTE | 2022-06-04 09:20 | XACV_ITS ---
Exam Room: 2 Ht: 165 cm Wt: 56 kg BSA: 1.60 m2 Gender: Female : 1945 Any Known Allergies: Codeine Exam Priority: Routine Procedure(s): Procedure Description: Diagnostic procedure Procedure Description: Coronary IVUS Nirav Ferguson [facility], ; Diagnostic Cath Status: Elective Diagnostic Findings * Please see separate report for coronary angiography performed by Dr. Coronel. PCI Status: Elective PCI LVEF Assessed: No Interventional Findings * IFR of the mid right coronary artery is 1.0. Decision for PCI with Surgical Consult: No PCI for Multi-vessel Disease: No Conclusions 1. IFR right coronary 1.0. Diagnostic RX Recommendation: medical therapy and/or counseling Pressures Phase:Rest AO : 116 / 67 ( 88 ) @ 9:51:00 AM Clinical Evaluation EBL: 5mL-10mL Procedural Details Procedure Consent Obtained. Pre-Procedure Time Out. Does the consent match the physician's order: Yes. Accurate & Complete Informed Consent: Yes. Inpatient/Outpatient History & Physical on Chart: No. If H&P is completed, is and addenduem needed: No; If yes, is the addendum complete: N/A. Visualize and Verify Site with Patient/Guarantor: N/A. Relevant Radiology Images available: N/A. The risks, benefits, and alternatives of sedation and/or procedure were discussed by physician. The patient agrees to continue. Procedure started. PERRLA. Strong, equal hand button riveter bilaterally. Lungs clear x 5 lobes. IV Site on Arrival: 20 gauge in the right anticubital. IV Fluids: 0.9% NaCl at KVO. 650 mL infused prior to shift lab technician. Pre Procedural Pulses: right dorsalis pedis was 2+. Oxygen started at 2liters/min via nasal canula. right groin was prepped with chloroprep then draped in the usual sterile fashion. Physician notified. Baseline sample Acquired. HR: [address] Triplett scrubbed in to perform intervention. Pt brought back to the shift lab technician for IFR. Sheath upsized to a 6 Fr. 6 armenian JR 4 guide catheter was inserted over the wire. Guide is seated in the RCA. IFR wire inserted through catheter. IFR normalized. IFR wire advanced past lesion. IFR spot 1.0. IFR wire out. Guide catheter out. A Manual Compression was successful obtaining hemostatsis at the Right Femoral artery insertion site. PERRLA. Strong, equal hand button riveter bilaterally. No VTE prophylaxis required. Medication's Wasted: Other = Fentanyl 100 mcg. Medication's Wasted: Other = Versed 1 mg. Medication's Wasted: Heparin = 1000 units. Total IV fluids: 59 mL. Post-op diagnosis: non obstructive CAD. Complications: none. Estimated blood loss: 5mL-10mL. Responsiveness - Normal response to verbal stimuli; alert and oriented, PERRLA. Airway - Unaffected, no intervention required; spontaneous ventilation. Circulation: W/N/L, pulses unchanged. Nausea/Vomiting: N/A. Procedure completed. Patient transferred by bed to CPRU. Vital chart was stopped. Access Site Site: Right Femoral artery Sheath Size: 5 Fr Hemostasis Method: Manual Compression Hemostasis Success: Successful Procedure Medications Start: 9:41 AM Stop: 9:41 AM Medication: Versed Amount: 1 mg Route: I.V. Start: 10:10 AM Stop: 10:10 AM Medication: Protamine Amount: 5 mg Route: I.V. I, the attending physician, have reviewed and verified all procedure medications. Yes, all medications given per verbal order History/Risk Factors Hypertension: No Dyslipidemia: No Peripheral Arterial Disease (PAD): No Myocardial Infarction (RI): No Obesity: No Prior Interventions PCI: No Valve Surgery: No Report Signatures Finalized by Dr. Yakov Triplett MD on 06/04/2022 10:26 AM
--- NOTE | 2022-06-04 09:28 | PC.NURSE ---
Pt transferred back to clam bed laborer via gurney at this time . Family at bedside and updated.
--- NOTE | 2022-06-04 15:09 | PC.NURSE ---
received from cardiac film laboratory technician at 1430.report received.pt is alert and awake and oriented x 4.denies pain at present.sr on monitor.left femoral venous and arterial sheath were pulled by film laboratory technician at 1030.site drsg is dry and intact.no hematoma noted.left leg is warm to touch and with brisk capillary refill.palpable dp and pt pulses noted.pt instructed in activity restrictions s/p femoral artery procedure..and instructed to notify staff for any bleeding,pain,sob,numbness,or for any concerns at all.pt verb understanding of instructions
--- NOTE | 2022-06-04 17:15 | PC.NURSE ---
pt ambulated in joe after 6 hours bedrest.bp stable.no hematoma formation noted.discharge instructions given and explained.pt and cg verb understanding.discharged via w/c to exit at this time.pt's son to drive pt home.
== END 2022-06-04 17:18 | disposition home or self-care (01) ==
LOC: CCL 07:18 → CSU 14:36
PROVIDERS: Internal Medicine Cardiovascular Disease; PCP Nurse Practitioner Family; Visit Provider Internal Medicine Cardiovascular Disease
DX: I25.118 Atherosclerotic heart disease of native coronary artery with other forms of angina pectoris (principal); I25.2 Old myocardial infarction; R42 Dizziness and giddiness; I10 Essential (primary) hypertension; E78.5 Hyperlipidemia, unspecified
CPT/HCPCS: 36415; 80048; 85025; 85610; 86850; 86900; 93458; 93571; 96361; 96365; 99152; 99153; C1769; C1887; C1894; J1644; J2250; J2720; J3010; J3490; J7030; Q0163; Q9967

== ENCOUNTER → 2022-06-17 09:05 | Outpatient (BNVA) | payer MEDICARE, OTHER, SELFPAY | PROVIDERS: PCP Nurse Practitioner Family; Visit Provider Nurse Practitioner Family | DX: I25.118 Atherosclerotic heart disease of native coronary artery with other forms of angina pectoris (principal); Z87.891 Personal history of nicotine dependence; I25.2 Old myocardial infarction | CPT/HCPCS: 36415; 80048; 99214 ==

== ENCOUNTER → 2022-07-09 09:37 | Outpatient (BNVA) | payer MEDICARE, OTHER, SELFPAY | PROVIDERS: PCP Nurse Practitioner Family; Visit Provider Nurse Practitioner Family | DX: I25.118 Atherosclerotic heart disease of native coronary artery with other forms of angina pectoris (principal); Z79.82 Long term (current) use of aspirin; Z87.891 Personal history of nicotine dependence; I25.2 Old myocardial infarction | CPT/HCPCS: 99213 ==

== ENCOUNTER 2022-08-28 20:58 | Emergency (ER) | payer MEDICARE, OTHER, SELFPAY ==
--- NOTE | 2022-08-28 21:01 | ECG_ITS ---
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 Measurements Intervals [place] Rate: 72 P: 142 ND: 154 QRS: 34 QRSD: 90 T: 120 QT: 378 QTc: 414 Interpretive Statements ECTOPIC ATRIAL RHYTHM LOW QRS VOLTAGE IN EXTREMITY LEADS [QRS DEFLECTION < 0.5 mV IN LIMB LEADS] NONSPECIFIC ST & T-WAVE ABNORMALITY Compared to ECG 04/25/2022 12:48:44 Ectopic atrial rhythm now present Low QRS voltage now present Sinus rhythm no longer present T-wave abnormality still present Electronically Signed On 08-29-2022 21:17:38 CDT by Phyllis Coronel M.D. [id number] f
--- NOTE | 2022-08-28 21:01 | XRR_ITS ---
PROCEDURE INFORMATION: Exam: XR Chest Exam date and time: 08/28/2022 9:31 PM Age: 76 years old Clinical indication: Chest pressure; Prior surgery; Surgery type: Coronary stent x 2; Patient HX: C/O chest pain; Additional info: Cp TECHNIQUE: Imaging protocol: Radiologic exam of the chest. Views: 1 view. COMPARISON: CR XR chest 1V portable [id number] 04/25/2022 10:54 AM FINDINGS: Lungs: The lung bases are suboptimally assessed due to technique however the upper lungs are clear of focal consolidation. Tiny bibasilar linear opacities are likely atelectasis-scarring similar to prior exam. Pleural spaces: Unremarkable. No pleural effusion. No pneumothorax. Heart/Mediastinum: Cardiac silhouette appears normal in size. No obvious vascular congestion. Tortuous thoracic aorta. Bones/joints: No acute osseous findings. Osteopenia. Other findings: Single view was submitted. XR/XR chest 1V portable [id number] IMPRESSION: Bibasilar linear opacities as described. Suboptimal lung base assessment. Followup including lateral view may be obtained if clinically indicated.
[2022-08-28 21:07] VITALS: BP 115/96; PULSE 90; RESP 18; TEMP 36.5; O2SAT 98; BMI 20.6
--- NOTE | 2022-08-28 21:09 | ECG_ITS ---
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 Measurements Intervals [place] Rate: 72 P: 142 GA: 154 QRS: 34 QRSD: 90 T: 120 QT: 378 QTc: 414 Interpretive Statements ECTOPIC ATRIAL RHYTHM LOW QRS VOLTAGE IN EXTREMITY LEADS [QRS DEFLECTION < 0.5 mV IN LIMB LEADS] NONSPECIFIC ST & T-WAVE ABNORMALITY Compared to ECG 04/25/2022 12:48:44 Ectopic atrial rhythm now present Low QRS voltage now present Sinus rhythm no longer present T-wave abnormality still present Electronically Signed On 08-29-2022 21:17:31 CDT by Phyllis Coronel M.D. [id number]
[2022-08-28 21:27] VITALS: BP 137/89; PULSE 80; RESP 18; O2SAT 98
--- NOTE | 2022-08-28 21:37 | W.ED.CHESTPA ---
HPI - Chest Pain General: Chief Complaint: Chest Pain Stated Complaint: Was Chest Pain,Now Between Shoulders\Heart PT Time Seen by Provider: 08/28/22 21:03 Source: patient Mode of arrival: ambulatory Limitations: no limitations History of Present Illness: 76-year-old female who states that she had eaten dinner tonight at 630 started having some chest pains and some epigastric pain. She denies any radiation of pain she had no nausea no diaphoresis she states she took 2 nitros and roughly an hour later the pain subsided. She states she felt like it could have been indigestion but she does have history of stents placed before make sure her heart is okay she has been in no pain currently no shortness of breath denies any fevers or cough. Associated symptoms: Deny abdominal pain, dyspnea, fever(s), nausea or vomiting Review of Systems Const: Denies: fever(s), chills, body aches or change in appetite Eyes: Denies: blurry vision or eye discomfort ENMT: Denies: throat pain or dental pain Card: Reports: chest pain Resp: Denies: dyspnea GI: Denies: abdominal pain, nausea, vomiting or diarrhea : Denies: dysuria Musc: Denies: neck pain or back pain Skin/Breast: Denies: rash Neuro: Denies: headache(s) Psych: Denies: depression Giuseppe/Lymph: Denies: easy bruising All/Imm: Denies: urticaria PFSH ED PFSH: Medical History Atherosclerotic heart disease of [place] coronary artery with other forms of angina pectoris Chest pain History of [place] (myocardial infarction) Hyperlipidemia Hypothyroidism Surgical History History of PTCA x 2, 2009 and 2021 Hx of heart artery stent Hx of tubal ligation Family History Mother CAD (coronary artery disease) Father CAD (coronary artery disease) [place] at 64/ Denies family history of Diabetes Clotting disorder Dementia Chronic kidney disease (CKD) Suicide Anesthesia complication Bleeding disorder Lung disease Cancer Stroke Social History Smoking and tobacco status: former smoker Alcohol intake: never Substance/Drug Use: never Physical Exam Const: COMMON NORMALS: no acute distress, patient oriented x3 and healthy appearing HENMT: COMMON NORMALS: normocephalic and atraumatic HEAD & SCALP: normocephalic and atraumatic Eye: COMMON NORMALS: conjunctivae normal CONJUNCTIVA: Yes conjunctivae normal Neck/C-Spine: COMMON NORMALS: full ROM and supple Chest: COMMONS NORMALS: normal inspection of the chest and normal palpation of entire chest wall Resp: COMMON NORMALS: normal respiratory effort, No retractions, No use of accessory muscles and clear to auscultation bilaterally AUSCULTATION: clear to auscultation bilaterally Cardio: COMMON NORMALS: regular rate, regular rhythm and No murmurs present (Cardio) RATE: regular rate RHYTHM: regular rhythm GI: COMMON NORMALS: Normal to inspection, nondistended, normoactive bowel sounds present, Soft to palpation, non-tender and no masses PALPATION: Yes Soft to palpation Extremity: COMMON NORMALS: normal to inspection and full ROM Neuro: COMMON NORMALS: patient oriented x3, moves all extremities and no focal motor deficits Psych: COMMON NORMALS: mental status grossly normal, Normal thought process present and cooperative THOUGHT PROCESS: Normal thought process present Skin: COMMON NORMALS: no rashes or lesions noted and no wounds GENERAL SKIN EXAM: no rashes or lesions noted Course Vital Signs: Vital signs: Vital Signs Temperature 97.7 F 08/28/22 21:07 Pulse Rate 66 08/29/22 00:02 Respiratory Rate 22 H 08/29/22 00:02 Blood Pressure 114/76 08/29/22 00:02 Pulse Oximetry 96 08/29/22 00:02 Oxygen Delivery Me thod Room Air 08/28/22 21:07 MDM - Chest Pain Medical Decision Making Patient presents for chest pains atypical in nature slightly and indigestion her pains been 0 here troponins are normal she wants to go home I feel she is stable for discharge no signs of dissection or pulm embolism she is to follow-up with PCP and return if worsening she understands agrees to plan. Medical Records I reviewed the patient's medical records. Lab Data I reviewed the patient's lab results. 08/28/22 21:30 08/28/22 21:30 Radiology Impressions Chest X-Ray 08/28/22 21:01 IMPRESSION: Bibasilar linear opacities as described. Suboptimal lung base assessment. Followup including lateral view may be obtained if clinically indicated. Laboratory Results WBC 8.2 10^3/uL (4.0-10.0) 08/28/22 21: RBC 3.83 10^6/uL (4.1-5.3) L 08/28/22 21:30 Hgb 12.1 g/dL (11.5-15.3) 08/28/22: Hct 36.7 % (37.0-47.0) L 08/28/22 21: MCV 95.8 fl (81-99) 08/28/22 21: MCH 31.6 pg (28.0-34.0) 08/28/22: MCHC 33.0 g/dL (30.0-36.0) 08/28/22: RDW 12.1 % (12.1-15.1) 08/28/22 21: Plt Count 246 10^3/cmm (130-400) 08/28/22 21: MPV 9.4 fL (7.4-10.4) 08/28/22 21: Neut % (Auto) 72.0 % 08/28/22 21: Lymph % (Auto) 19.7 % 08/28/22 21: [place] % (Auto) 7.6 % 08/28/22 21: Eos % (Auto) 0.0 % 08/28/22: Baso % (Auto) 0.6 % 08/28/22: Neut # (Auto) 5.88 10^3/uL (1.8-7.7) 08/28/22 21: Lymph # (Auto) 1.6 10^3/uL (0.8-4.8) 08/28/22 21: [place] # (Auto) 0.6 10^3/uL (0.2-0.9) 08/28/22 21: Eos # (Auto) 0.0 10^3/uL (0.0-0.8) 08/28/22 21: Baso # (Auto) 0.1 10^3/uL (0.0-0.1) 05/03/23 21:30 Nucleated RBC % (auto) 0 % 08/28/22 21:30 Nucleated RBCs # 0.0 /100WBC 08/28/22 21:30 PT 12.30 SECONDS (12.1-14.9) 08/28/22 21:30 INR 0.89 (0.8-1.2) 08/28/22 21:30 Sodium 142 mmol/L (136-145) 08/28/22 21:30 Potassium 3.9 mmol/L (3.5-5.1) 08/28/22 21:30 Chloride 108 mmol/L (98-107) H 08/28/22 21:30 Carbon Dioxide 26 mmol/L (22-29) 08/28/22 21:30 Anion Gap 11.9 (5-19) 08/28/22 21:30 BUN 17 mg/dL (8-23) 08/28/22 21:30 Creatinine 0.9 mg/dL (0.5-0.9) 08/28/22 21:30 GFR Calculation Not Reportable 08/28/22 21:30 Glucose 114 mg/dL (65-115) 08/28/22 21:30 Calculated Osmolality 296 mOsm/kg (285-295) H 08/28/22 21:30 Calcium 9.3 mg/dL (8.5-10.5) 08/28/22 21:30 Total Bilirubin 0.2 mg/dL (0.15-1.2) 08/28/22 21:30 AST 21 U/L (0-32) 08/28/22 21:30 ALT 14 U/L (0-33) 08/28/22 21:30 Alkaline Phosphatase 65 U/L (35-105) 08/28/22 21:30 Troponin T Baseline 6 ng/L (0-10) 08/28/22 21:30 Troponin T 120 Minute 6.00 ng/L (0-10) 08/28/22 23:36 NT-Pro-B Natriuret Pep 140 pg/mL (0-125) H 08/28/22 21:30 Total Protein 7.1 g/dL (6.6-8.7) 08/28/22 21:30 Albumin 4.5 g/dL (3.5-5.2) 08/28/22 21:30 Globulin 2.6 g/dL (1.3-4.6) 08/28/22 21:30 EKG Data EKG 1: I personally reviewed and interpreted this EKG as follows: EKG interpretation date: 08/28/22 EKG interpretation time: 21:13 Interpretation: nsr hr [address] or t wave abnormalities qrs 90 qtc 401 Discharge Plan Discharge Patient Disposition: Home Clinical Impression: Chest pain Condition: Stable Prescriptions: No Action Nitrostat 0.4 mg tablet, sublingual 0.4 mg SUBLINGUAL Q5M PRN (Reason: Chest Pain) Qty: 30 5RF aspirin 81 mg tablet,delayed release (DR/EC) 81 mg PO BEDTIME Qty: 90 1RF clopidogrel 75 mg tablet 75 mg PO BEDTIME Qty: 90 3RF isosorbide mononitrate 30 mg tablet extended release 24 hr 15 mg PO BID Qty: 90 3RF Rx Instructions: Dose reduced amlodipine 5 mg tablet See Rx Instructions .ROUTE .COMPLEX Qty: 90 0RF Dose Instruction: TAKE 1 TABLET DAILY Rx Instructions: TAKE 1 TABLET DAILY simvastatin 40 mg tablet 40 mg PO BEDTIME levothyroxine [Synthroid] 100 mcg tablet 100 mcg PO DAILY Discharge Orders: Discharge ED (Routine); Ordered 08/29/22 Ordered By: Zaria Lo Referrals: Carine Malagon FNP [Primary Care Provider] - 1-3 days Discharge Diet: Advance as tolerated Discharge Activity: Resume usual activity Patient Instructions: Chest Pain (ED) Coding Level of Care Code ED 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
[2022-08-28 21:39] LABS: Basophils # 0.1 10^3/uL (0.0-0.1); Basophils % 0.6 %; Hematocrit 36.7 % (37.0-47.0); Hemoglobin 12.1 g/dL (11.5-15.3); Lymphocytes # 1.6 10^3/uL (0.8-4.8); Lymphocytes % 19.7 %; Mean Corpuscular Hemoglobin 31.6 pg (28.0-34.0); Mean Corpuscular Volume 95.8 fl (81-99); Mean Platelet Volume 9.4 fL (7.4-10.4); Monocytes # 0.6 10^3/uL (0.2-0.9); Monocytes % 7.6 %; Neutrophils # 5.88 10^3/uL (1.8-7.7); Nucleated Red Blood Cells % 0 %; Platelet Count 246 10^3/cmm (130-400); Red Blood Count 3.83 10^6/uL (4.1-5.3); Red Cell Distribution Width 12.1 % (12.1-15.1); White Blood Count 8.2 10^3/uL (4.0-10.0)
[2022-08-28 21:53] LABS: INR 0.89 (0.8-1.2)
[2022-08-28 22:02] LABS: Troponin(5th) Baseline 6 ng/L (0-10)
[2022-08-28 22:11] LABS: Alanine Aminotransferase 14 U/L (0-33); Albumin Level 4.5 g/dL (3.5-5.2); Alkaline Phosphatase 65 U/L (35-105); Anion Gap 11.9 (5-19); Aspartate Amino Transferase 21 U/L (0-32); Blood Urea Nitrogen 17 mg/dL (8-23); Calcium 9.3 mg/dL (8.5-10.5); Carbon Dioxide 26 mmol/L (22-29); Chloride 108 mmol/L (98-107); Globulin 2.6 g/dL (1.3-4.6); Glucose 114 mg/dL (65-115); NT Pro B Type Natriuretic Pept 140 pg/mL (0-125); Osmolality Calculated 296 mOsm/kg (285-295); Potassium 3.9 mmol/L (3.5-5.1); Sodium 142 mmol/L (136-145); Total Bilirubin 0.2 mg/dL (0.15-1.2); Total Protein 7.1 g/dL (6.6-8.7)
--- NOTE | 2022-08-28 23:01 | ECG_ITS ---
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 Measurements Intervals [place] Rate: 67 P: 73 [place]: 159 QRS: 26 QRSD: 89 T: 49 QT: 403 QTc: 426 Interpretive Statements SINUS RHYTHM LOW QRS VOLTAGE IN PRECORDIAL LEADS [QRS DEFLECTION < 1.0 mV IN CHEST LEADS] NONSPECIFIC T-WAVE ABNORMALITY Compared to ECG 08/28/2022 21:13:20 Ectopic atrial rhythm no longer present T-wave abnormality still present Electronically Signed On 08-29-2022 21:27:17 CDT by Phyllis Coronel M.D. [email or web address]
[2022-08-29 00:02] VITALS: BP 114/76; PULSE 66; RESP 22; O2SAT 96
[2022-08-29 00:13] VITALS: BP 114/76; PULSE 66; RESP 18; O2SAT 92
[2022-08-29 00:21] LABS: Troponin 5 2HR Delta 0 ABS# (0-10)
== END 2022-08-29 00:14 | disposition home or self-care (01) ==
PROVIDERS: Emergency Provider Emergency Medicine; PCP Nurse Practitioner Family
DX: R07.9 Chest pain, unspecified (principal); Z79.82 Long term (current) use of aspirin; Z79.02 Long term (current) use of antithrombotics/antiplatelets; Z87.891 Personal history of nicotine dependence; I25.118 Atherosclerotic heart disease of native coronary artery with other forms of angina pectoris; I25.2 Old myocardial infarction; E78.5 Hyperlipidemia, unspecified
CPT/HCPCS: 71045; 80053; 83880; 84484; 85025; 85610; 93005; 99285

== ENCOUNTER → 2022-09-13 09:39 | Outpatient (BNVA) | payer MEDICARE, OTHER, SELFPAY | PROVIDERS: PCP Nurse Practitioner Family; Visit Provider Nurse Practitioner Family | DX: E03.9 Hypothyroidism, unspecified (principal) | CPT/HCPCS: 84443 ==

== ENCOUNTER 2022-10-01 09:46 | Outpatient (CLI) | payer MEDICARE, OTHER, SELFPAY ==
--- NOTE | 2022-10-01 10:15 | US_ITS ---
WS: [email or web address] ULTRASOUND ABDOMEN LIMITED CLINICAL INFORMATION: R10.811 - Right upper quadrant abdominal tenderness COMPARISON: None. FINDINGS: Liver Size: Normal. Craniocaudal length: 13.0 cm. Echogenicity: Normal. Surface nodularity: None. Mass (size and location): None. Bile ducts Intrahepatic ducts: Normal. Common bile duct diameter: 0.3 cm. Gallbladder Normal. Gallstones: None. Gallbladder sludge: None. Gallbladder wall thickening: None. Pericholecystic fluid: None. Sonographic Pascal sign: Absent. Pancreas Normal as visualized. Right kidney: Normal. Hydronephrosis: None. Size: 11.2 cm x 5.2 cm x 4.0 cm. Abdominal aorta and IVC are patent. Incidental dilatation of the IVC. Visualized portions are normal. Ascites: None. US/US gall bladder [id number] IMPRESSION: 1. Normal liver. 2. Normal gallbladder. 3. Normal common bile duct. 4. No hydronephrosis in RIGHT kidney.
== END 2022-10-01 09:47 | disposition home or self-care (01) ==
LOC: RAD 09:52
PROVIDERS: PCP Nurse Practitioner Family; Visit Provider Nurse Practitioner Family
DX: R10.811 Right upper quadrant abdominal tenderness (principal)
CPT/HCPCS: 76705

== ENCOUNTER 2022-10-24 08:39 | Outpatient (CLI) | payer MEDICARE, OTHER, SELFPAY ==
--- NOTE | 2022-10-24 09:00 | USCV_ITS ---
Lakesha Robb Age: 77 Gender: F : 1945 Exam Date: 10/24/2022 09:11 Ordering Phys: Carine Malagon-Lucila KINGP Technologist: LUISITO [place] [facility] [place]ication: EVAL FOR IVC DILATION Conclusions Normal doppler of the IVC and hepatic veins IVC measures <21mm with normal compression Adrian Avilez MD (Electronically Signed) Final Date: 24 October 2022 12:51 S
== END 2022-10-24 08:40 | disposition home or self-care (01) ==
LOC: RAD 08:40
PROVIDERS: PCP Nurse Practitioner Family; Visit Provider Nurse Practitioner Family
DX: Q26.8 Other congenital malformations of great veins (principal)
CPT/HCPCS: 93978

== ENCOUNTER → 2023-04-22 13:09 | Outpatient (BNVA) | payer MEDICARE, OTHER, SELFPAY | PROVIDERS: PCP Nurse Practitioner Family; Visit Provider Internal Medicine Cardiovascular Disease | DX: I25.118 Atherosclerotic heart disease of native coronary artery with other forms of angina pectoris (principal); E78.5 Hyperlipidemia, unspecified; R23.8 Other skin changes; R06.02 Shortness of breath; I12.9 Hypertensive chronic kidney disease with stage 1 through stage 4 chronic kidney disease, or unspecified chronic kidney disease; N18.9 Chronic kidney disease, unspecified; E03.9 Hypothyroidism, unspecified; R53.83 Other fatigue; Z87.891 Personal history of nicotine dependence | CPT/HCPCS: 36415; 80048; 84443; 99214 ==

== ENCOUNTER → 2023-09-24 14:44 | Outpatient (BNVA) | payer MEDICARE, OTHER, SELFPAY | PROVIDERS: PCP Nurse Practitioner Family; Visit Provider Nurse Practitioner Family | DX: R53.83 Other fatigue (principal); E78.2 Mixed hyperlipidemia; E03.9 Hypothyroidism, unspecified; K59.01 Slow transit constipation; Z79.899 Other long term (current) drug therapy | CPT/HCPCS: 80053; 80061; 84439; 84443; 85025 ==

== ENCOUNTER → 2023-09-30 10:41 | Outpatient (BNVA) | payer MEDICARE, OTHER, SELFPAY | PROVIDERS: PCP Nurse Practitioner Family; Visit Provider Nurse Practitioner Family | DX: R73.09 Other abnormal glucose (principal); R73.9 Hyperglycemia, unspecified | CPT/HCPCS: 83036 ==

== ENCOUNTER → 2023-10-15 13:33 | Outpatient (BNVA) | payer MEDICARE, OTHER, SELFPAY | PROVIDERS: PCP Nurse Practitioner Family; Visit Provider Internal Medicine Cardiovascular Disease | DX: I25.118 Atherosclerotic heart disease of native coronary artery with other forms of angina pectoris (principal); I10 Essential (primary) hypertension; E78.5 Hyperlipidemia, unspecified; E03.9 Hypothyroidism, unspecified | CPT/HCPCS: 99214 ==

== ENCOUNTER 2023-10-20 14:18 | Outpatient (CLI) | payer MEDICARE, OTHER, SELFPAY ==
--- NOTE | 2023-10-20 14:26 | XR_ITS ---
WS: [email or web address] Exam: XR chest 2V* [id number] Date/Time of Exam: 10/20/2023 2:26 PM Reason For Exam: M54.9 - Dorsalgia, unspecified Comparison 08/28/2022. The lungs are clear and fully expanded. Normal cardiomediastinal silhouette. No pleural effusions. Mi ld spondylosis of the thoracic spine. Signs of coronary artery stenting. XR/XR chest 2V* [id number] IMPRESSION: 1. No acute cardiopulmonary process.
--- NOTE | 2023-10-20 14:26 | XR_ITS ---
WS: [email or web address] Exam: XR thoracic spine 3V* [id number] Date/Time of Exam: 10/20/2023 2:26 PM Reason For Exam: M54.9 - Dorsalgia, unspecified No fracture or dislocation. Mild spondylosis. Very mild lower thoracic levoscoliosis. Normal paraspin al soft tissues. XR/XR thoracic spine 3V* [id number] IMPRESSION: 1. Mild degenerative changes and mild scoliosis.
== END 2023-10-20 14:19 | disposition home or self-care (01) ==
LOC: RAD 14:20
PROVIDERS: PCP Nurse Practitioner Family; Visit Provider Nurse Practitioner Family
DX: M54.9 Dorsalgia, unspecified (principal)
CPT/HCPCS: 71046; 72072

== ENCOUNTER 2023-12-02 10:27 | Outpatient (CLI) | payer MEDICARE, OTHER, SELFPAY ==
--- NOTE | 2023-12-02 11:00 | MR_ITS ---
WS: [id number] MRI THORACIC SPINE WITHOUT CONTRAST TECHNIQUE: Sagittal T1, T2 and STIR imaging. Axial T2 imaging. Noncontrast imaging obtained. CLINICAL INFORMATION: M54.9 - Dorsalgia, unspecified COMPARISON: None. FINDINGS: Mild thoracic curve. Mild thoracic kyphosis. No acute appearing compression fractures. Cord signal is normal. No significant disc extrusions or protrusions. Mild facet arthropathy lower thoracic spine. Mild annular bulging T9-10 and T10-11. Normal paravertebral soft tissues. No significant central canal stenosis. Dilated ascending thoracic aorta measuring 3.6 cm. Recommend further evaluation with CTA chest. MR/MR thoracic spin wo con* [id number] IMPRESSION: 1. Mild thoracic curve. Mild thoracic kyphosis. 2. Cord signal is normal. No central canal stenosis. 3. No acute compression fractures. 4. Minimal annular bulging T9-10 and T10-11. 5. No acute thoracic spine findings. 6. Dilated ascending thoracic aorta measuring 3.6 cm. Recommend further evalua tion with CTA chest.
== END 2023-12-02 10:28 | disposition home or self-care (01) ==
LOC: RAD 10:29
PROVIDERS: PCP Nurse Practitioner Family; Visit Provider Nurse Practitioner Family
DX: M54.9 Dorsalgia, unspecified (principal)
CPT/HCPCS: 72146

== ENCOUNTER → 2023-12-04 09:46 | Outpatient (BNVA) | payer MEDICARE, OTHER, SELFPAY | PROVIDERS: PCP Nurse Practitioner Family; Visit Provider Nurse Practitioner Family | DX: E03.9 Hypothyroidism, unspecified (principal) | CPT/HCPCS: 84443 ==

== ENCOUNTER 2023-12-09 08:09 | Outpatient (CLI) | payer MEDICARE, OTHER, SELFPAY ==
--- NOTE | 2023-12-09 08:45 | CT_ITS ---
WS: [id number] CTA CHEST AND ABDOMEN TECHNIQUE: Noncontrast plus contrast enhanced CTA of the chest and abdomen with coronal and sagittal reformatted images and additional MIP Images. CLINICAL INFORMATION: I71.20 - Thoracic aortic aneurysm, without rupture, unspe... COMPARISON: None. DLP: 436.[address] scans at [facility] use at least one of these dose optimization techniques: automated e xposure control; mA and/or kV adjustment per patient size (includes targeted exams where dose is matc hed to clinical indication); or iterative reconstruction. FINDINGS: Aneurysmal ascending thoracic aorta measuring 4.1 cm in maximum dimension. Normal caliber descending thoracic aorta. Celiac and SMA are patent. 2 LEFT renal arteries are patent. RIGHT renal artery is pa tent. IRMA is patent. Mild abdominal aortic calcification. Slight fusiform dilatation distal abdominal aorta measuring 2.0 x 1.9 cm. Proximal great vessels are patent. Coronary calcification. No mediastinal or hilar lymphadenopathy. N o axillary lymphadenopathy. Mild chronic emphysematous changes. Slight bibasal atelectasis. Small nodule RIGHT middle lobe measur ing 3 mm. Slightly nodular LEFT adrenal gland. RIGHT adrenal gland is normal. Normal renal parenchymal enhancement. Extrarenal pelvis bilaterally. Normal spleen. Normal GE junctio n. Disc space narrowing worse at L1-2. CT/[place]d [id number] IMPRESSION: 1. Aneurysmal ascending thoracic aorta measuring 4.1 cm in maximum dimension. Normal caliber descending thoracic aorta. 2. Dense coronary calcification. 3. Slight fusiform dilatation distal abdominal aorta measuring 2.0 x 1.9 cm. 4. Celiac and SMA are patent. 5. 3 mm RIGHT middle lobe noncalcified nodule. 6. Mild chronic emphysematous changes.
[2023-12-09 08:57] LABS: Blood Urea Nitrogen 11 mg/dL (8-23)
[2023-12-09] MEDS: iohexol 350 mg/mL 500 mL Btl (per mL) IV (09:11)
== END 2023-12-09 08:10 | disposition home or self-care (01) ==
LOC: RAD 08:09
PROVIDERS: Radiology Diagnostic Radiology; PCP Nurse Practitioner Family; Visit Provider Nurse Practitioner Family
DX: I71.20 Thoracic aortic aneurysm, without rupture, unspecified (principal); I25.84 Coronary atherosclerosis due to calcified coronary lesion; R91.1 Solitary pulmonary nodule; M48.061 Spinal stenosis, lumbar region without neurogenic claudication
CPT/HCPCS: 71275; 74175; 82565; 84443; 84520; Q9967

== ENCOUNTER → 2024-04-26 14:51 | Outpatient (BNVA) | payer MEDICARE, OTHER, SELFPAY | PROVIDERS: PCP Nurse Practitioner Family; Visit Provider Nurse Practitioner Family | DX: I10 Essential (primary) hypertension (principal); R53.83 Other fatigue; E55.9 Vitamin D deficiency, unspecified | CPT/HCPCS: 80053; 82306; 84439; 84443; 85025 ==

== ENCOUNTER 2024-05-20 10:48 | Outpatient (CLI) | payer MEDICARE, OTHER, SELFPAY | END 2024-05-20 10:49 | disposition home or self-care (01) | LOC: SLEEP 10:49 | PROVIDERS: PCP Nurse Practitioner Family; Visit Provider Nurse Practitioner Family | DX: G47.30 Sleep apnea, unspecified (principal) | CPT/HCPCS: 80053; 82306; 84439; 84443; 85025 ==

== ENCOUNTER → 2024-05-27 13:56 | Outpatient (BNVA) | payer MEDICARE, OTHER, SELFPAY | PROVIDERS: PCP Nurse Practitioner Family; Visit Provider Nurse Practitioner Family | DX: I10 Essential (primary) hypertension (principal); R53.83 Other fatigue; I71.20 Thoracic aortic aneurysm, without rupture, unspecified | CPT/HCPCS: 93005; 99214 ==

== ENCOUNTER → 2024-06-10 10:40 | Outpatient (BNVA) | payer MEDICARE, OTHER, SELFPAY | PROVIDERS: PCP Nurse Practitioner Family; Visit Provider Internal Medicine Cardiovascular Disease | DX: Z53.9 Procedure and treatment not carried out, unspecified reason (principal) | CPT/HCPCS: 93229 ==

== ENCOUNTER 2024-06-25 11:00 | Outpatient (CLI) | payer MEDICARE, OTHER, SELFPAY ==
--- NOTE | 2024-06-25 11:15 | USCV_ITS ---
Lakesha Robb Age: 78 Gender: F : 1945 Exam Date: 06/25/2024 11:25 Ordering Phys: Vannessa Gifford NP Technologist: CT [place]am [place] [facility] [place] Indication: BP: 125 / 81 HR: 62 Rhythm: Sinus Technical Quality: Adequate MEASUREMENTS (Male / Female) Normal Values 2D ECHO LVOT Diameter 2.1 cm LV Ejection Fraction MOD 4C 61.1 % LV Ejection Fraction MOD 2C 73.4 % LV Ejection Fraction 2C AL 74.5 % LA Diameter 3.5 cm RA Systolic Volume 4C AL 45.7 ml RA Systolic Volume 4C MOD 41.1 ml LA Sys Volume AL 30.8 cm cubed LA Sys Volume Index AL 20.4 cm cubed/m squared Aorta at Sinotubular Diameter 2.3 cm IVC Diameter 2.0 cm M-MODE LA Ao Ratio MM 1.6 AV Cusp Separation MM 1.6 cm DOPPLER AV Peak Velocity 140.0 cm/s LVOT Peak Velocity 106.0 cm/s AV Area Cont Eq vti 2.6 cm squared AV Area Cont Eq pk 2.6 cm squared MV Peak Velocity 83.0 cm/s MV Area PHT 4.0 cm squared Mitral E to A Ratio 1.0 TR Peak Velocity 280.0 cm/s TR Peak Gradient 31.4 mmHg TR Mean Velocity 202.0 cm/s TR Mean Gradient 18.8 mmHg TR Velocity Time Integral 91.0 cm TV Peak E Velocity 59.0 cm/s PV Peak Velocity 85.0 cm/s FINDINGS Left Ventricle Normal left ventricular size, systolic function and wall thickness, with no regional wall motion abnormalities. Right Ventricle Normal right ventricular size and systolic function. Right Atrium Normal right atrial size. Left Atrium Normal left atrial size. Mitral Valve Structurally normal mitral valve. No mitral valve stenosis. Aortic Valve Structurally normal trileaflet aortic valve. No aortic valve stenosis. Tricuspid Valve Structurally normal tricuspid valve. Trace tricuspid valve regurgitation. Estimated TVPG 30 mmHg. Pulmonic Valve Structurally normal pulmonic valve. Pericardium No pericardial effusion. Aorta Normal size aortic root and proximal ascending aorta. IVC Normal inferior vena cava. CONCLUSIONS Normal LV systolic function. Estimated LVEF 65%. Normal chamber sizes. No significant valvular abnormality noted. Normal right heart and pulmonary pressures. Mariluz Vazquez MD (Electronically Signed) Final Date: 25 June 2024 15:45 S
== END 2024-06-25 11:01 | disposition home or self-care (01) ==
LOC: RAD 11:00
PROVIDERS: PCP Nurse Practitioner Family; Visit Provider Nurse Practitioner Family
DX: I25.2 Old myocardial infarction (principal); R53.83 Other fatigue
CPT/HCPCS: 93306

== ENCOUNTER 2024-07-23 09:01 | Outpatient (CLI) | payer MEDICARE, OTHER, SELFPAY ==
--- NOTE | 2024-07-23 09:08 | CT_ITS ---
WS: [id number] CTA CHEST ABDOMEN AND PELVIS TECHNIQUE: Noncontrast plus contrast enhanced CTA of the chest, abdomen, and pelvis with coronal and sagittal reformatted images and additional MIP Images. CLINICAL INFORMATION: Abdominal aortic aneurysm and desc. thoracic aortic aneurysm COMPARISON: 12/09/2023 DLP: 691.[address] scans at [facility] use at least one of these dose optimization techniques: automated exposure control; mA and/or kV adjustment per patient size (includes targeted exams where dose is matched to clinical indication); or iterative reconstruction. FINDINGS: Aneurysmal ascending thoracic aorta measuring 4.0 cm in maximum dimension. Normal caliber descending thoracic aorta. Celiac and SMA are patent. Main and LEFT renal accessory arteries are patent. RIGHT renal artery is patent. IRMA is patent. Mild abdominal aortic calcification. Slight fusiform dilatation distal abdominal aorta measuring 2.0 x 2.0 x 4.5 cm AP by transverse by craniocaudal Dense coronary calcification. No mediastinal or hilar lymphadenopathy. No axillary lymphadenopathy. Mild chronic emphysematous changes. Stable thickening LEFT adrenal gland. RIGHT adrenal gland is normal. Normal renal parenchymal enhancement. Normal spleen. Normal GE junction. Disc space narrowing worse at L1-2 with endplate degenerative changes. CT/CT [facility] [id number] IMPRESSION: 1. Stable aneurysmal ascending thoracic aorta measuring 4.0 cm in maximum dime nsion unchanged compared to previous. 2. Stable fusiform dilatation distal abdominal aorta measuring 2.0 x 2.0 x 4.5 cm AP by transverse by craniocaudal 3. Dense coronary calcification. 4. Chronic emphysematous changes. 5. Stable tiny 3 mm nodule in the RIGHT middle lobe.
[2024-07-23] MEDS: iohexol 350 mg/mL 500 mL Btl (per mL) IV (09:40)
== END 2024-07-23 09:02 | disposition home or self-care (01) ==
LOC: RAD 09:05
PROVIDERS: PCP Nurse Practitioner Family; Visit Provider Nurse Practitioner Family
DX: I71.40 Abdominal aortic aneurysm, without rupture, unspecified (principal); I71.23 Aneurysm of the descending thoracic aorta, without rupture; I25.10 Atherosclerotic heart disease of native coronary artery without angina pectoris; J43.9 Emphysema, unspecified; I70.0 Atherosclerosis of aorta; E27.8 Other specified disorders of adrenal gland; M51.369 Other intervertebral disc degeneration, lumbar region without mention of lumbar back pain or lower extremity pain
CPT/HCPCS: 71275; 74174

== ENCOUNTER → 2024-08-24 12:26 | Outpatient (BNVA) | payer MEDICARE, OTHER, SELFPAY | PROVIDERS: PCP Nurse Practitioner Family; Visit Provider Internal Medicine | DX: I25.118 Atherosclerotic heart disease of native coronary artery with other forms of angina pectoris (principal); I10 Essential (primary) hypertension; E78.5 Hyperlipidemia, unspecified; E03.9 Hypothyroidism, unspecified | CPT/HCPCS: 99214 ==

== ENCOUNTER → 2024-08-30 11:31 | Outpatient (BNVA) | payer MEDICARE, OTHER, SELFPAY | PROVIDERS: PCP Nurse Practitioner Family; Visit Provider Nurse Practitioner Family | DX: I10 Essential (primary) hypertension (principal); R19.5 Other fecal abnormalities; F32.A Depression, unspecified | CPT/HCPCS: 80053; 80061; 84439; 84443 ==

== ENCOUNTER → 2024-09-02 10:56 | Outpatient (BNVA) | payer MEDICARE, OTHER, SELFPAY | PROVIDERS: PCP Nurse Practitioner Family; Visit Provider Nurse Practitioner Family | DX: E16.2 Hypoglycemia, unspecified (principal) | CPT/HCPCS: 83036 ==

== ENCOUNTER → 2024-09-07 10:58 | Outpatient (BNVA) | payer MEDICARE, OTHER, SELFPAY | PROVIDERS: PCP Nurse Practitioner Family; Visit Provider Nurse Practitioner Family | DX: N39.0 Urinary tract infection, site not specified (principal) | CPT/HCPCS: 81000 ==

== ENCOUNTER → 2024-09-15 13:06 | Outpatient (BNVA) | payer MEDICARE, OTHER, SELFPAY | PROVIDERS: PCP Nurse Practitioner Family; Referring Provider Nurse Practitioner Family; Visit Provider Surgery | DX: K59.01 Slow transit constipation (principal); R19.5 Other fecal abnormalities | CPT/HCPCS: 99204 ==

== ENCOUNTER 2024-09-16 13:08 | Outpatient (CLI) | payer MEDICARE, OTHER, SELFPAY ==
--- NOTE | 2024-09-16 13:45 | US_ITS ---
WS: [email or web address] US pelv w/transvag [id number] HISTORY: R10.2 - Pelvic and perineal pain COMPARISON: None available. Uterus: 6.3 cm x 4.1 cm x 3.0 cm. Normal size anteverted uterus. No fibroid or mass. Endometrium: 1.1 cm. Normal endometrium. There is a small amount of fluid within the fundal portion of the endometrium. Neither ovary is identified. No adnexal masses. Small amount of free fluid in the cul-de-sac. US/US pelv w/transvag [id number] IMPRESSION: 1. Normal uterus. No fibroid. 2. Normal endometrium. Small amount of fluid in the endometrial canal which is within normal limits. 3. Neither ovary is identified.
== END 2024-09-16 13:09 | disposition home or self-care (01) ==
PROVIDERS: PCP Nurse Practitioner Family; Visit Provider Nurse Practitioner Family
DX: R10.2 Pelvic and perineal pain (principal)
CPT/HCPCS: 76830; 76856

== ENCOUNTER 2024-10-13 05:32 | Day surgery (SDC) | payer MEDICARE, OTHER, SELFPAY ==
[2024-10-13 05:53] VITALS: BP 106/75; PULSE 68; RESP 18; TEMP 36.7; O2SAT 98; BMI 16.4
[2024-10-13] MEDS: sodium chloride 0.9% 1,000 ML 15 ML IV (06:03)
--- NOTE | 2024-10-13 06:04 | P.HPUD_ITS ---
Surgery/Procedure H&P Update DATE OF PROCEDURE: October 13, 2024 DATE H&P PERFORMED: 09/15/24 H&P UPDATE INFORMATION: I have reviewed H&P completed within last 30 days, I have examined patient prior to procedure, No changes to prior documentation, H&P is in [facility] EMR on date indicated and Risks and benefits of the procedure reviewed PLANNED PROCEDURE: Operation Date: 10/13/24 07:00 Proposed Procedures p Colonoscopy 11909 G0105 K59.01 R19.5(Not Applicable) - Shakir Fitch MD
--- NOTE | 2024-10-13 06:31 | ANES.PREANE2 ---
Pre-Anesthetic Assessment Height/Weight: Height 1.7 m Weight 47.627 kg Temp Pulse Resp BP Pulse Ox O2 Del Method 98.1 F 68 18 106/75 98 Room Air 10/13/24 05:53 10/13/24 05:53 10/13/24 05:53 10/13/24 05:53 10/13/24 05:53 10/13/24 05:53 Operation Date: 10/13/24 07:00 Proposed Procedures p Colonoscopy 31391 G0105 K59.01 R19.5(Not Applicable) - Shakir Fitch MD Familial anesthetic complications: None Was Beta Yovani taken within 24 hours: N/A Was Clonidine taken within 24 hours: N/A Last intake: Intake Last Liquid Date 10/12/24 Last Liquid Time 18:00 Last Solid Date 10/11/24 Last Solid Time 18:00 Social No alcohol and No tobacco Exam alert, oriented x 3, clear to auscultation bilaterally and regular rate & rhythm Airway Submandibular: within normal limits Cervical ROM: within normal limits Mallampati: Class II Comments: Comments: Upper dentures History/ROS No significant history except as noted and No significant complaints Pulmonary None reported CV/HEM Coronary Artery Disease and Myocardial Infarction (2009 x1 stent, another stent placed years after) Ascending and thoracic aneurysm CONCLUSIONS Normal LV systolic function. Estimated LVEF 65%. Normal chamber sizes. No significant valvular abnormality noted. Normal right heart and pulmonary pressures. None reported Hepatic None reported GI None reported Metabolic Hyperlipidemia and Thyroid Disease Musc/skel Lower Back Pain Neuropsych None reported Anesthetic Plan ASA status: 3 Anesthesia: Anesthesia Evaluation, General and MAC Risk of > 500 ml blood loss (7ml/kg in children): No Medications/Allergies Home Medications ?Medication ?Instructions ?Recorded ?Confirmed ?Last Taken ?Type nitroglycerin 0.4 mg sublingual 0.4 mg sublingual Q5M PRN Chest 05/21/21 10/11/24 04/25/22 Rx tablet (Nitrostat) Pain #30 tabs aspirin 81 mg tablet,delayed 81 mg PO BEDTIME #90 tabs 06/22/21 10/11/24 10/12/24 19:00 Rx release isosorbide mononitrate 30 mg 15 mg (1/2 x 30 mg) PO BID #90 tabs 06/29/24 10/11/24 10/13/24 04:00 Rx tablet,extended release 24 hr conjugated estrogens 0.625 mg/gram 0.625 mg vaginal DAILY 7 days #30 09/07/24 10/11/24 1 Month Ago Rx vaginal cream (Premarin) grams ~09/10/24 ondansetron 8 mg disintegrating 8 mg PO Q8H PRN nausea and 09/15/24 10/11/24 Unknown Rx tablet vomiting #3 tabs polyethylene glycol 3350 17 17 g PO BID 30 days #1,020 grams 09/15/24 10/11/24 10/08/24 Rx gram/dose oral powder (Miralax) tramadol 50 mg tablet 50 mg PO BID PRN pain 5 days #10 09/17/24 10/11/24 10/12/24 19:00 Rx tabs levothyroxine 100 mcg tablet 100 mcg PO DAILY 10/11/24 10/11/24 10/13/24 04:00 History (Synthroid) sertraline 25 mg tablet (Zoloft) 25 mg PO DAILY #30 tabs 10/11/24 Unknown Rx simvastatin 40 mg tablet 40 mg PO DAILY 10/11/24 10/11/24 10/12/24 19:00 History Allergies Allergy/AdvReac Type Severity Reaction Status Date / Time codeine AdvReac ADR-Faintin Verified 10/13/24 05:50 g Current Medications Generic Name Dose Route Start Last Admin Trade Name Freq PRN Reason Stop Dose Admin Sodium Chloride 1,000 mls @ 15 mls/hr 10/13/24 05:43 10/13/24 06:03 Sodium Chloride 0.9% IV 10/14/24 05:42 15 mls/hr .Q24H PRN Administration COLONOSCOPY FLUIDS PFSH Anesthesia Medical History Fatigue History of [place] (myocardial infarction) Chest pain Atherosclerotic heart disease of [place] coronary artery with other forms of angina pectoris Hyperlipidemia Hypothyroidism Surgical History History of PTCA x 2, 2009 and 2021 Hx of tubal ligation Hx of heart artery stent Family History Mother CAD (coronary artery disease) Father CAD (coronary artery disease) [place] at 64/ Denies family history of Diabetes Clotting disorder Dementia Chronic kidney disease (CKD) Suicide Anesthesia complication Bleeding disorder Lung disease Cancer Stroke Social History Smoking and tobacco/nicotine status: former use of tobacco/nicotine Alcohol intake: never Substance/Drug Use: never Data Anesthesia Cardiac Studies: Echocardiogram 06/25/24 Cardiac Event Monitor 06/10/24
[2024-10-13 07:27] VITALS: BP 131/67; PULSE 64; RESP 12; TEMP 36.3; O2SAT 100
[2024-10-13 08:07] VITALS: BP 106/73; PULSE 65; RESP 16; O2SAT 97
--- NOTE | 2024-10-13 08:12 | ANE.PACU2 ---
Inpatient post-anesthesia follow up: Airway intact: Yes Vital signs: Temperature 97.3 F Pulse Rate 65 Respiratory Rate 16 Blood Pressure 106/73 Pulse Oximetry 97 Oxygen Delivery Me thod Room Air Oxygen Flow Rate Fraction of Inspir ed Oxygen Hydration adequate: Yes Nausea and vomiting: No Pain level: 1 Mental status: Baseline
== END 2024-10-13 08:12 | disposition home or self-care (01) ==
PROVIDERS: PCP Nurse Practitioner Family; Visit Provider Surgery
PROC: 0DJD8ZZ Inspection of Lower Intestinal Tract, Via Natural or Artificial Opening Endoscopic (ICD-10-PCS; CPT 45378; principal; 2024-10-13 07:00)
DX: Z12.11 Encounter for screening for malignant neoplasm of colon (principal); D12.3 Benign neoplasm of transverse colon; D12.4 Benign neoplasm of descending colon; D12.8 Benign neoplasm of rectum; K59.01 Slow transit constipation; R19.5 Other fecal abnormalities; E78.5 Hyperlipidemia, unspecified; E03.9 Hypothyroidism, unspecified; I25.10 Atherosclerotic heart disease of native coronary artery without angina pectoris; I25.2 Old myocardial infarction; Z95.5 Presence of coronary angioplasty implant and graft; Z79.890 Hormone replacement therapy; Z87.891 Personal history of nicotine dependence; Z79.899 Other long term (current) drug therapy; Z79.82 Long term (current) use of aspirin
CPT/HCPCS: 45385; 88305; J2371; J2704; J7030; J9999

== ENCOUNTER → 2024-10-26 10:25 | Outpatient (BNVA) | payer MEDICARE, OTHER, SELFPAY | PROVIDERS: PCP Nurse Practitioner Family; Visit Provider Surgery | DX: Z09 Encounter for follow-up examination after completed treatment for conditions other than malignant neoplasm (principal) | CPT/HCPCS: 99213 ==

== ENCOUNTER → 2024-12-16 11:00 | Outpatient (BNVA) | payer MEDICARE, OTHER, SELFPAY | PROVIDERS: PCP Nurse Practitioner Family; Visit Provider Nurse Practitioner Family | DX: I10 Essential (primary) hypertension (principal); R53.83 Other fatigue; E16.2 Hypoglycemia, unspecified; E03.9 Hypothyroidism, unspecified; R00.1 Bradycardia, unspecified | CPT/HCPCS: 80053; 82607; 83036; 83550; 84439; 84443; 85025 ==

== ENCOUNTER 2024-12-27 18:43 | Inpatient (IN) | payer MEDICARE, OTHER, SELFPAY ==
--- OUTSIDE RECORDS SUMMARY | 2024-12-27 18:47 | XMS_ITS | Encounter Summary ---
Author Organization [facility] Address [address] [place] [address] Care Team Providers Care Cruise Coordinator Name Role Phone Danielle Best MD Primary Care Provider Encounter Details Date Type Department Care Team (Latest Contact Info) Description 05/30/2000 Outpatient Historical [facility] Family Medicine [address] [phone] José Miguel Hunter DO NO ADDRESS ON FILE Sebaceous cyst (Primary Dx) Social History Tobacco Use Types Packs/Day Years Used Date Smoking Tobacco: Never Assessed Comments Unknown Sex and Gender Information Value Date Recorded Sex Assigned at Not on file Legal 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
--- OUTSIDE RECORDS SUMMARY | 2024-12-27 18:47 | XMS_ITS | Encounter Summary ---
Author Organization [facility] Address [address] [place] [address] Care Team Providers Care Forestry And Wildlife Manager Name Role Phone Danielle Best MD Primary Care Provider Encounter Details Date Type Department Care Team (Latest Contact Info) Description 06/05/2000 Outpatient Historical [facility] Family Medicine [address] [phone] José Miguel Hunter DO NO ADDRESS ON FILE Sebaceous cyst (Primary Dx) Social History Tobacco Use Types Packs/Day Years Used Date Smoking Tobacco: Never Assessed Comments Unknown Sex and Gender Information Value Date Recorded Sex Assigned at Not on file Legal Sex Female 3:25 AM [facility] Gender Identity Not on file Sexual Orientation Not on file documented as of this encounter Plan of Treatment Not on file documented as of this encounter Visit Diagnoses Diagnosis Sebaceous cyst- Primary documented in this encounter Care Teams Forestry And Wildlife Manager Relationship Specialty Start Date End Date Danielle Best MD [address] [phone] PCP - General Family Practice 08/27/13 documented as of this encounter
--- OUTSIDE RECORDS SUMMARY | 2024-12-27 18:47 | XMS_ITS | Encounter Summary ---
Author Organization [facility] Address [address] [place] [address] Care Team Providers Care Authors Motivational Name Role Phone Danielle Best MD Primary Care Provider Encounter Details Date Type Department Care Team (Latest Contact Info) Description 10/23/[address] 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
--- OUTSIDE RECORDS SUMMARY | 2024-12-27 18:47 | XMS_ITS | Clinical Summary ---
Author Organization [place] Address [address] [facility] Attn: Epic Prelude ADT GUILLE ZIMMERMAN [address] Care Team Providers Care World Designer Name Role Phone Carine Malagon TELEMARKETER SUPERVISOR Primary Care Provider Allergies Active Allergy Reactions Criticality Noted Date Comments Cephalexin Hives High 06/07/2015 Codeine Syncope Medium 04/26/2010 Sulfa (Sulfonamide Antibiotics) Rash Low 11/27 Medications levothyroxine (Synthroid) 75 mcg tabletIndication s:Hypothyroidism , unspecified type TAKE 1 TABLET DAILY RADIUS CORNER MACHINE OPERATOR 90 Tablet 1 08/17/2018 Active aspirin (ECOTRIN EC) 81 mg Tablet, Delayed Release (E.C.) Take 81 mg by mouth daily. Active losartan (COZAAR) 25 mg tablet 01/12/2021 Active simvastatin (ZOCOR) 20 mg tablet 02/09/2021 Active losartan (COZAAR) 25 mg tablet Take 25 mg by mouth daily. 08/06/2016 Active Active Problems Problem Noted Date Diagnosed Date Other specified hypothyroidism 02/19/2018 Family History Medical History Relation Name Comments Heart Disease Father Unknown Maternal Grandfather Unknown Maternal Grandmother Heart Disease Mother Unknown Paternal Grandfather Unknown Paternal Grandmother Breast Cancer Neg Hx Colon Cancer Neg Hx Relation Name Status Comments Father Maternal Grandfather Maternal Grandmother Mother Paternal Grandfather Paternal Grandmother Social History Tobacco Use Types Packs/Day Years Used Date Smoking Tobacco: Former Cigarettes Q uit: 11/26/2009 Smokeless Tobacco: Never Alcohol Use Standard Drinks/Week Comments No 0 (1 standard drink = 0.6 oz pur e alcohol) Comments No Sex and Gender Information Value Date Recorded Sex Assigned at Not on file Legal Sex Female 3:29 PM RN NEW GRAD Gender Identity Not on file Sexual Orientation Not on file Last Filed Vital Signs Vital Sign Reading Time Taken Comments Blood Pressure 127/76 03/10/2021 2:00 AM RN NEW GRAD Pulse 79 03/10/2021 2:00 AM RN NEW GRAD Temperature 36.5 C (97.7 F) 03/10/2021 1:03 AM RN NEW GRAD Respiratory Rate 20 03/10/2021 12:59 AM RN NEW GRAD Oxygen Saturation 98% 03/10/2021 2:00 AM RN NEW GRAD Inhaled Oxygen Concentration - - Weight 56.8 kg (125 lb 3.2 oz) 03/10/2021 12:59 AM RN NEW GRAD Height 165.1 cm (5' 5 ) 03/10/2021 12:59 AM RN NEW GRAD Body Mass Index 20.83 03/10/2021 12:59 AM RN NEW GRAD Plan of Treatment Health Maintenance Due Date Last Done Comments DTAP/TDAP/TD VACCINES (1 - Tdap) 09/22/1966 PNEUMOCOCCAL VACCINE 50+ YEA RS (1 of 1 - PCV) 09/22/1997 ZOSTER VACCINE (1 of 2) 09/22/1997 OSTEOPOROSIS SCREENING 09/22/2012 RSV VACCINE (60+ or ) (1 - 1-dose 75+ series) 09/22/2022 INFLUENZA VACCINE (#1) 2024 04/30/2018, 2018 Colorectal Cancer Screening Discontinued FIT/FOBT Q 1 year Discontinued 05/04/2018 COLORECTAL SCREENING Discontinued FIT-DNA Q 3 years Discontinued Flex Sig/CT Colonography Q 5 years Discontinued Procedures Procedure Name Priority Date/Time Associated Diagnosis Comments POC OCCULT BLOOD UP TO 3 CARDS Routine 05/04/2018 12:25 PM RN NEW GRAD from Last 3 Months or Most Recently Relevant to Health Maintenance Results * POC OCCULT BLOOD UP TO 3 CARDS (05/04/2018 12:25 PM RN NEW GRAD) OCCULT BLOOD 1 CARD POC Negative Negative [facility] OCCULT BLOOD 2 CARD POC Negative Negative [facility] OCCULT BLOOD 3 CARD POC Negative Negative [facility] INTERNAL KIT QC Pass Pass [facility] CARD LOT NUMBER POC [id number] [facility] CARD EXPIRATION DATE POC 02/2021 [facility] DEVELOPER LOT NUMBER POC [id number] [facility] DEVELOPER EXPIRATION DATE POC 02/2021 [facility] Stool STOOL SPECIMEN / Unknown 05/04/2018 12:25 PM RN NEW GRAD us Carine Malagon TELEMARKETER SUPERVISOR POINT OF CARE TESTING Final Result [facility] CLIA# [id number] [address] [place] [address] from Last 3 Months or Most Recently Relevant to Health Maintenance Insurance MEDICARE PART A AND B [facility] [employer] [facility] [id number] * Guarantor: LAKESHA ROBB Account Type Relation to Patient Date of Phone Billing Address Personal/Family [address] [place] [address] RX [facility] [employer] Advance Directives For more information, please contact: [phone] Documents on File Type Date Recorded Patient Kiosk Sales Representative Expl anation Advance Directive POA 05/14/2018 9:39 AM A dvance Directive POA Care Teams World Designer Relationship Specialty Start Date End Date Carine Malagon FNP [address] [place] [phone] PCP - General Nurse Practitioner Family 03/05/21
--- OUTSIDE RECORDS SUMMARY | 2024-12-27 18:47 | XMS_ITS | Encounter Summary ---
Author Organization [facility] Address [address] [place] [address] Care Team Providers Care House Carpenter Name Role Phone Danielle Best MD Primary Care Provider Encounter Details Date Type Department Care Team (Latest Contact Info) Description 09/18/2001 Outpatient Historical [facility] Medicine- [address] [phone] José Miguel Hunter DO NO ADDRESS ON FILE ARTHROPATHY NEC-UNSPEC (Primary Dx) Social History Tobacco Use Types Packs/Day Years Used Date Smoking Tobacco: Never Assessed Comments Unknown Sex and Gender Information Value Date Recorded Sex Assigned at Not on file Legal Sex Female 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
--- OUTSIDE RECORDS SUMMARY | 2024-12-27 18:47 | XMS_ITS | Encounter Summary ---
Author Organization [facility] Address [address] [place] [address] Care Team Providers Care Vessel Scrapper Helper Name Role Phone Danielle Best MD Primary Care Provider Encounter Details Date Type Department Care Team (Latest Contact Info) Description 07/03/2006 Outpatient Historical [facility] [address] [place] [address] AMBULANCE, [facility] Syncope and Collapse (Primary Dx) Social History Tobacco Use Types Packs/Day Years Used Date Smoking Tobacco: Never Assessed Comments Unknown Sex and Gender Information Value Date Recorded Sex Assigned at Not on file Legal Sex Female 3:25 AM VP OF MARKETING Gender Identity Not on file Sexual Orientation Not on file documented as of this encounter Plan of Treatment Not on file documented as of this encounter Visit Diagnoses Diagnosis Syncope and collapse- Primary documented in this encounter Care Teams Vessel Scrapper Helper Relationship Specialty Start Date End Date Danielle Best MD [address] [facility] [address] [place] [phone] PCP - General Family Practice 08/27/13 documented as of this encounter
--- OUTSIDE RECORDS SUMMARY | 2024-12-27 18:47 | XMS_ITS | Encounter Summary ---
Author Organization [facility] Address [address] [place] [address] Care Team Providers Care Pm Head Cook Name Role Phone Danielle Best MD Primary Care Provider Encounter Details Date Type Department Care Team (Latest Contact Info) Description 08/12/2003 Outpatient Historical [facility] [address] [place] [address] Carine Malagon, SAW SUPERINTENDENT [address] [place] [address] ACUTE URI NOS (Primary Dx) Social History Tobacco Use Types Packs/Day Years Used Date Smoking Tobacco: Never Assessed Comments Unknown Sex and Gender Information Value Date Recorded Sex Assigned at Not on file Legal Sex Female 3:25 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
--- OUTSIDE RECORDS SUMMARY | 2024-12-27 18:47 | XMS_ITS | Clinical Summary ---
Author Organization [facility] Address [address] [place] [address] Care Team Providers Care Maintenance Director Name Role Phone Danielle Best MD Primary Care Provider [phone] Allergies Active Allergy Reactions Criticality Noted Date Comments Cephalexin Hives High 06/07/2015 Codeine Syncope Medium 04/26/2010 Sulfa (Sulfonamide Antibiotics) Rash Low 11/27 Medications aspirin (NATIVIDAD) 81 mg Oral Tab Take 81 mg by mouth daily. Active simvastatin (ZOCOR) 20 mg Oral tablet Take 20 mg by mouth Daily LATE. Active losartan (COZAAR) 25 mg tablet Take 25 mg by mouth daily. Active SYNTHROID 75 mcg tabletIndication s:Hypothyroidism , unspecified type TAKE 1 TABLET DAILY HONEY PRODUCER 90 Tablet 1 08/17/2018 Active Active Problems Problem Noted Date Diagnosed [...] on file Legal Sex Female 3:25 AM LOOM STARTER Gender Identity Not on file Sexual Orientation Not on file Last Filed Vital Signs Vital Sign Reading Time Taken Comments Blood Pressure 113/99 01/06/2019 12:43 PM CDT Pulse 53 01/06/2019 12:43 PM CDT Temperature 36.8 C (98.3 F) 10/23/2018 10:23 AM CDT Respiratory Rate 20 10/23/2018 10:23 AM CDT Oxygen Saturation 96% 10/23/2018 10:23 AM CDT Inhaled Oxygen Concentration - - Weight 58.1 kg (128 lb) 10/23/2018 10:23 AM CDT Height 162.6 cm (5' 4 ) 10/23/2018 10:23 AM CDT Body Mass Index 21.97 10/23/2018 10:23 AM CDT Plan of Treatment Health Maintenance Due Date Last Done Comments DTAP/TDAP/TD VACCINES (1 - Tdap) 09/22/1966 PNEUMOCOCCAL VACCINE 50+ YEA RS (1 of 1 - PCV) 09/22/1997 ZOSTER VACCINE (1 of 2) 09/22/1997 OSTEOPOROSIS SCREENING 09/22/2012 Traditional Medicare (ACO) A nnual Wellness Visit 05/01/2019 04/30/2018 RSV VACCINE (60+ or ) (1 - 1-dose 75+ series) 09/22/2022 INFLUENZA VACCINE (#1) 2024 04/30/2018, 2018 Colorectal Cancer Screening Discontinued FIT/FOBT Q 1 year Discontinued 05/04/2018 COLORECTAL SCREENING Discontinued FIT-DNA Q 3 years Discontinued Flex Sig/CT Colonography Q 5 years Discontinued Procedures Procedure Name Priority Date/Time Associated Diagnosis Comments POC OCCULT BLOOD UP TO 3 CARDS Routine 05/04/2018 12:25 PM LOOM STARTER Occult blood in stools from Last 3 Months or Most Recently Relevant to Health Maintenance Results * POC OCCULT BLOOD UP TO 3 CARDS (05/04/2018 12:25 PM LOOM STARTER) OCCULT BLOOD 1 CARD POC Negative Negative [facility] [place] [facility] OCCULT BLOOD 2 CARD POC Negative Negative [facility] OCCULT BLOOD 3 CARD POC Negative Negative [facility] INTERNAL KIT QC Pass Pass [facility] CARD LOT NUMBER POC [id number] [facility] CARD EXPIRATION DATE POC 02/2021 [facility] DEVELOPER LOT NUMBER POC [id number] [facility] DEVELOPER EXPIRATION DATE POC 02/2021 [facility] Stool STOOL SPECIMEN / Unknown 05/04/2018 12:25 PM LOOM STARTER Carine Malagon LOAD OUT WORKER POINT OF CARE TESTING Final Result [facility] CLIA# [id number] [address] [place] [address] from Last 3 Months or Most Recently Relevant to Health Maintenance Insurance MEDICARE PART A AND B [facility] [place] [id number] RX [facility] [employer] Advance Directives For more information, please contact: [phone] Documents on File Type Date Recorded Patient Natural Gas Inspector Expl anation Advance Directive POA 05/14/2018 Advanc e Directive POA Care Teams Maintenance Director Relationship Specialty Start Date End Date Danielle Best MD [address] [phone] PCP - General Family Practice 08/27/13
--- OUTSIDE RECORDS SUMMARY | 2024-12-27 18:47 | XMS_ITS | Encounter Summary ---
Author Organization [facility] Address [address] [place] [address] Care Team Providers Care Raise Drill Operator Name Role Phone Danielle Best MD Primary Care Provider Encounter Details Date Type Department Care Team (Latest Contact Info) Description 09/22/2001 Outpatient Historical [facility] Medicine [address] [phone] José Miguel Hunter DO NO ADDRESS ON FILE THROMBOCYTOPENIA NOS (Primary Dx) Social History Tobacco Use Types Packs/Day Years Used Date Smoking Tobacco: Never Assessed Comments Unknown Sex and Gender Information Value Date Recorded Sex Assigned at Not on file Legal Sex Female 3:25 AM 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
[2024-12-27 19:03] VITALS: BP 120/70; PULSE 64; RESP 17; TEMP 36.6; O2SAT 96
[2024-12-27 19:45] LABS: Hematocrit 34.5 % (36-47); Hemoglobin 11.40 g/dL (11.27-16.99); Mean Corpuscular HGB Conc 33.0 g/dL (30-55); Mean Corpuscular Hemoglobin 31.5 pg (27-33); Mean Corpuscular Volume 95.3 fl (85-98); Nucleated Red Blood Cells % 0 %; Platelet Count 184 10^3/cmm (157-399); Red Blood Count 3.62 10^6/uL (3.85-5.65); White Blood Count 6.21 10^3/uL (3.29-11.43)
[2024-12-27 20:00] VITALS: BP 120/70; PULSE 64; RESP 17; TEMP 36.6; O2SAT 96
[2024-12-27 20:04] LABS: Troponin(5th) Baseline 7 ng/L (0-10)
[2024-12-27 20:14] LABS: Alanine Aminotransferase 10 U/L (0-33); Albumin Level 3.8 g/dL (3.5-5.2); Alkaline Phosphatase 60 U/L (35-105); Anion Gap 11.6 (5-19); Aspartate Amino Transferase 12 U/L (0-32); Blood Urea Nitrogen 12 mg/dL (8-23); Calcium 8.6 mg/dL (8.5-10.5); Carbon Dioxide 26 mmol/L (22-29); Chloride 106 mmol/L (98-107); Cholesterol 125 mg/dL (0-200); Globulin 2.2 g/dL (1.3-4.6); Glucose 132 mg/dL (65-115); HDL Cholesterol 66 mg/dL (60-100); Osmolality Calculated 292 mOsm/kg (285-295); Potassium 3.6 mmol/L (3.5-5.1); Sodium 140 mmol/L (136-145); Thyroid Stimulating Hormone 0.24 uIU/mL (0.27-4.20); Total Protein 6.0 g/dL (6.6-8.7); Triglycerides 49 mg/dL (0-150)
[2024-12-27 20:49] LABS: Estmated Average Glucose 114; Hemoglobin A1C 5.6 % (4.0-6.0)
--- NOTE | 2024-12-27 21:04 | ECG_ITS ---
[facility] Date: 2024-12[facility]27 Pat Name: Lakesha Robb Department: Room: 261 Gender: Female Supervisor Volunteer Services: : 1945 Requested By: Aric Hays Order Number: [id number] Shraddha MD: Phyllis Coronel M.D. Measurements Intervals [place] Rate: 62 P: 64 [place]: 151 QRS: 14 QRSD: 94 T: 63 QT: 434 QTc: 441 Interpretive Statements SINUS RHYTHM LOW QRS VOLTAGE IN PRECORDIAL LEADS [QRS DEFLECTION < 1.0 mV IN CHEST LEADS] NONSPECIFIC T-WAVE ABNORMALITY Compared to ECG 12/27/2024 21:34:11 Low QRS voltage now present T-wave abnormality still present Electronically Signed On 12-28-2024 21:56:16 CDT by Phyllis Coronel M.D. [email or web address]
--- NOTE | 2024-12-27 21:34 | ECG_ITS ---
[facility] 2024-12[facility]27 Pat Name: Lakesha Robb Department: Room: 261 Gender: Female Snap Shearer: : 1945 Requested By: Aric Hays Order Number: [id number] Shraddha MD: Phyllis Coronel M.D. Measurements Intervals [place] Rate: 65 P: 79 ID: 153 QRS: 26 QRSD: 87 T: 30 QT: 406 QTc: 422 Interpretive Statements SINUS RHYTHM NONSPECIFIC ST & T-WAVE ABNORMALITY Compared to ECG 05/27/2024 14:05:17 No significant changes Electronically Signed On 12-28-2024 21:42:13 CDT by Phyllis Coronel M.D. [id number] [id number]
[2024-12-27 22:01] LABS: Troponin 5 2HR 7.22 ng/L (0-10); Troponin 5 2HR Delta 0.22 ABS# (0-10)
--- NOTE | 2024-12-27 23:51 | P.HP_ITS ---
Providers/Chief Complaint 2 Admitting Physician: Aric Hays MD/LORI RYAN DO Primary Care Provider: RADHA Peck Chief Complaint: RT Hip F/x History of Present Illness Lakesha Robb is a 79 year old female who accidentally had a mechanical fall and fell on the right hip fracturing it. For this reason patient had had pain that compelled her to come to the emergency room for further evaluation. Patient was medicated lab work and studies done to confirm fracture of the right hip. Pain management is ongoing patient is comfortable. Emergency room attending had notified and consulted orthopedics regarding the hip fracture and surgery Pat the orthopedics will take place tomorrow patient Sunday, December 29, 2024. Review of Systems 2 Narrative: System review upon 10 organ review were significant for musculoskeletal system because of apparent right hip fracture otherwise unremarkable. Medications/Allergies Home Medications ?Medication ?Instructions ?Recorded ?Confirmed ?Last Taken ?Type nitroglycerin 0.4 mg sublingual 0.4 mg sublingual Q5M PRN Chest 05/21/21 12/16/24 04/25/22 Rx tablet (Nitrostat) Pain #30 tabs aspirin 81 mg tablet,delayed 81 mg PO BEDTIME #90 tabs 06/22/21 12/16/24 10/12/24 19:00 Rx release isosorbide mononitrate 30 mg 15 mg (1/2 x 30 mg) PO BI D #90 tabs 06/29/24 12/16/24 10/13/24 04:00 Rx tablet,extended release 24 hr conjugated estrogens 0.625 mg/gram 0.625 mg vaginal DA TIEN 7 days #30 09/07/24 12/16/24 1 Month Ago Rx vaginal cream (Premarin) grams ~09/10/24 ondansetron 8 mg disintegrating 8 mg PO Q8H PRN nausea and 09/15/24 12/16/24 Unknown Rx tablet vomiting #3 tabs polyethylene glycol 3350 17 17 g PO BID 30 days #1,020 grams 09/15/24 12/16/24 10/08/24 Rx gram/dose oral powder (Miralax) simvastatin 40 mg tablet 40 mg PO DAILY 10/11/24 08/05/2210/12/24 19:00 History sertraline 25 mg tablet (Zoloft) 25 mg PO DAILY #30 ta bs 11/10/24 12/16/24 Unknown Rx tramadol 50 mg tablet 50 mg PO BID 5 days #10 tabs 12/14/24 12/16/24 Unknown Rx levothyroxine 88 mcg capsule 88 mcg PO DAILY #90 caps 12/17/24 Unknown Rx Allergies Allergy/AdvReac Type Severity Reaction Status Date / Time codeine AdvReac ADR-Faintin Verified 12/16/24 10:13 g PFSH Acute 2 PFSH: Medical History Fatigue History of MS (myocardial infarction) Chest pain Atherosclerotic heart disease of [place] coronary artery with other forms of angina pectoris Hyperlipidemia Hypothyroidism Surgical History History of PTCA x 2, 2009 and 2021 Hx of tubal ligation Hx of heart artery stent Family History Mother CAD (coronary artery disease) Father CAD (coronary artery disease) MS at 64/ Denies family history of Diabetes Clotting disorder Dementia Chronic kidney disease (CKD) Suicide Anesthesia complication Bleeding disorder Lung disease Cancer Stroke Social History Smoking and tobacco/nicotine status: former use of tobacco/nicotine Alcohol intake: never Substance/Drug Use: never Vitals/I&O/Wt Last Vital Signs Temp 97.8 F 12/27/24 19:03 Pulse 64 12/27/24 19:03 Resp 17 12/27/24 19:03 BP 120/70 12/27/24 19:03 Pulse Ox 96 12/27/24 19:03 O2 Del Method Room Air 12/27/24 19:38 Physical Exam 2 Narrative: Patient is fairly comfortable and not ill-appearing pain management is on board. Patient knows to ask whenever she is having pain requiring pain medication HEENT normocephalic/atraumatic neck neck is supple cardiovascular heart rate is regular lungs are pretty much clear abdomen soft nontender nondistended unremarkable extremities are intact no edema except the right hip that is fractured through mechanical fall there is fullness in the area lateral upper thigh. The extremities has good pulses neurology has no focality lab studies lab studies reviewed and noted. Data 12/28/24 01:20 12/28/24 01:20 A&P Assessment and plan 1. Right hip pain: 2. Closed right hip fracture: 3. Back Pain: 4. Benign essential HTN: Right hip pain with fracture - Admit to surgical unit - Orthopedics have been consulted - Pain management had been initiated - Patient be n.p.o. after midnight tonight for surgery tomorrow being December 29, 2024 - Continue pain management - Allow patient to eat today. Chronic health issues such as benign essential hypertension, diabetes, chronic back pain - Continue patient's home medication for these while in the hospital. Must continue to follow through and optimize PDMP PDMP Reviewed: Not Reviewed Attestations 2 Medical Necessity Statement*: Hip pain and hip fracture patient need at least 2 midnights for care of the fracture patient is inpatient for care. Coding Level of Care Code 05042 Diagnoses Right hip pain M25.551 Closed right hip fracture S72.001A Back Pain M54.9 Benign essential HTN I10 Time Spent (min) 60
[2024-12-28] VITALS (21 sets, daily range): BP systolic 100–148; BP diastolic 61–82; PULSE 54–69; RESP 16–19; TEMP 36.3–36.9; O2SAT 92–96
--- NOTE | 2024-12-28 01:09 | ECG_ITS ---
[address] Date: 2024-12-28 Pat Name: Lakesha Robb Department: Room: 261 Gender: Female Picking Belt Operator: : 1945 Requested By: Aric Hays Order Number: [id number] Shraddha MD: Phyllis Coronel M.D. Measurements Intervals [place] Rate: 63 P: 68 OR: 153 QRS: 16 QRSD: 93 T: 33 QT: 418 QTc: 429 Interpretive Statements SINUS RHYTHM LOW QRS VOLTAGE IN PRECORDIAL LEADS [QRS DEFLECTION < 1.0 mV IN CHEST LEADS] NONSPECIFIC ST & T-WAVE ABNORMALITY Compared to ECG 12/27/2024 23:15:14 No significant changes Electronically Signed On 12-28-2024 21:54:47 CDT by Phlylis Coronel M.D. [id number]
[2024-12-28 01:43] LABS: Alanine Aminotransferase 9 U/L (0-33); Albumin Level 3.6 g/dL (3.5-5.2); Alkaline Phosphatase 61 U/L (35-105); Anion Gap 12.7 (5-19); Aspartate Amino Transferase 12 U/L (0-32); Blood Urea Nitrogen 13 mg/dL (8-23); Calcium 8.7 mg/dL (8.5-10.5); Carbon Dioxide 25 mmol/L (22-29); Chloride 105 mmol/L (98-107); Globulin 2.3 g/dL (1.3-4.6); Glucose 149 mg/dL (65-115); Magnesium 2.0 mg/dL (1.7-2.3); Osmolality Calculated 291 mOsm/kg (285-295); Potassium 3.7 mmol/L (3.5-5.1); Sodium 139 mmol/L (136-145); Total Protein 5.9 g/dL (6.6-8.7)
[2024-12-28 01:54] LABS: Hematocrit 35.1 % (36-47); Hemoglobin 11.50 g/dL (11.27-16.99); Mean Corpuscular HGB Conc 32.8 g/dL (30-55); Mean Corpuscular Hemoglobin 31.5 pg (27-33); Mean Corpuscular Volume 96.2 fl (85-98); Nucleated Red Blood Cells % 0 %; Platelet Count 189 10^3/cmm (157-399); Red Blood Count 3.65 10^6/uL (3.85-5.65); White Blood Count 5.77 10^3/uL (3.29-11.43)
[2024-12-28 02:07] LABS: Troponin 5 6HR 9.14 ng/L (0-10); Troponin 5 6HR Delta 2.14 ng/L (0-12)
--- NOTE | 2024-12-28 07:45 | PC.NURSE ---
Patient has been NPO diet order has not been changed and the tray that was brought for her was given to her for breakfast. Patient son and daughter are also at bedside. The patient's family is asking that Dr. Garcia do the surgery instead of Dr. Simental. Will notify Dr. Hays.
--- NOTE | 2024-12-28 09:09 | PC.CHAP ---
Pastoral Care Encounter/Spiritual Assessment Type of Contact [] Declined ship harbor pilot visit [] Patient/Family/Request visit [] Outpatient visit [] Follow-up visit [] Physician referral [] Code/Alert [x] Routine visit [] Staff referral [] Actively dying [] Patient sleeping [x] Family support [] [] Out of room [] Palliative care [] [] Receiving care in room [] Pre-surgical visit [] Trauma [] Long length of stay [] ICU visit [] Other: Relational/Emotional Strength [x] Patient feels connected with others/family/visitors/staff [] Distress [] Loneliness/isolation [] Abandonment Spirituality of Patient [x] Person of Jacklyn [] Attends Tenriism of their Jacklyn [x] Believes in Prayer [] Reads Bible or Shinto materials [] There are Spiritual issues to be addressed Clerk Supervisor Interventions [x] Prayer [x] Active listening [] Non-anxious presence [x] Spiritual/emotional support [] Crisis/trauma care [] Spiritual counseling [] Bereavement support [] Provided bereavement packet [] Provided Bible/devotional materials [] Provided toy/stuffed animal, coloring book to patient or family member [] Provided Communion [] Anointing/[place] [] Salvation [x] Completed spiritual assessment [] Other: Impact on Illness or Injury [] Angry [] Fearful [] Anxious [] Often cries [] Exhaustion [] Unable to work [] Unable to attend jewish [] Unable to walk/stand [] Unable to read [] Unable to drive [] Unable to eat/drink [] Unable to sleep [] Unable to be with family [] Patient intubated [] Other: Summary Time spent with patient 5 min
--- NOTE | 2024-12-28 12:28 | ANES.PREANE2 ---
Pre-Anesthetic Assessment Height/Weight: Height 1.7 m Weight 48.534 kg Temp Pulse Resp BP Pulse Ox O2 Del Method 97.7 F 56 L 18 127/72 95 Room Air 12/28/24 11:36 12/28/24 11:36 12/28/24 11:36 12/28/24 11:36 12/28/24 11:36 12/28/24 11:36 Preop Diagnosis: Right subcapital hip fracture Operation Date: 12/28/24 13:25 Proposed Procedures p Hip Screw Insertion-3 Cannulated Screws(Right) - Eva Garcia MD Familial anesthetic complications: None Was Beta Yovani taken within 24 hours: N/A Was Clonidine taken within 24 hours: N/A Last intake: > 8 hrs Social No alcohol and No tobacco Exam alert, oriented x 3, clear to auscultation bilaterally and regular rate & rhythm Airway Mallampati: Class II Dentition: false Pulmonary Sleep Apnea CV/HEM Arrythmia (bradycardia), Coronary Artery Disease (stents > 1 year) and Hypertension AAA and TAA Metabolic Hyperlipidemia and Thyroid Disease Anesthetic Plan ASA status: 3 Anesthesia: General Risk of > 500 ml blood loss (7ml/kg in children): No Medications/Allergies Home Medications ?Medication ?Instructions ?Recorded ?Confirmed ?Last Taken ?Type nitroglycerin 0.4 mg sublingual 0.4 mg sublingual Q5M PRN Chest 05/21/21 12/28/24 04/25/22 Rx tablet (Nitrostat) Pain #30 tabs aspirin 81 mg tablet,delayed 81 mg PO BEDTIME #90 tabs 06/22/21 12/28/24 12/27/24 Rx release isosorbide mononitrate 30 mg 15 mg (1/2 x 30 mg) PO BID #90 tabs 06/29/24 12/28/24 12/27/24 Rx tablet,extended release 24 hr ondansetron 8 mg disintegrating 8 mg PO Q8H PRN nausea and 09/15/24 12/28/24 Unknown Rx tablet vomiting #3 tabs simvastatin 40 mg tablet 40 mg PO DAILY 10/11/24 12/28/24 12/27/24 History sertraline 25 mg tablet (Zoloft) 25 mg PO DAILY #30 tabs 11/10/24 12/28/24 12/27/24 Rx levothyroxine 88 mcg capsule 88 mcg PO DAILY #90 caps 12/17/24 12/28/24 12/27/24 Rx polyethylene glycol 3350 17 17 g PO BID PRN Constipation 12/28/24 12/28/24 Unknown History gram/dose oral powder (Miralax) tramadol 50 mg tablet 50 mg PO BID PRN Pain 12/28/24 12/28/24 12/27/24 History Allergies Allergy/AdvReac Type Severity Reaction Status Date / Time codeine AdvReac ADR-Faintin Verified 12/16/24 10:13 g Current Medications Generic Name Dose Route Start Last Admin Trade Name Freq PRN Reason Stop Dose Admin Acetaminophen 650 mg 12/28/24 00:25 12/28/24 06:19 Acetaminophen 325 Mg Tablet PO 650 mg On Hold: 12/28/24 12:16 Q6H PRN Administration Comment: Order held by Process Mild/Mod Pain Or Temp >/= 101 Transfer Docusate Sodium 100 mg 12/28/24 09:00 12/28/24 09:23 Docusate Sodium 100 Mg Capsule PO 100 mg On Hold: 12/28/24 12:16 BID ARCHIE Administration Comment: Order held by Process Transfer Sodium Chloride 1,000 mls @ 75 mls/hr 12/28/24 00:25 12/28/24 01:06 Sodium Chloride 0.9% IV 75 mls/hr On Hold: 12/28/24 12:16 .[id number] ARCHIE Administration Comment: Order held by Process Transfer Pantoprazole Sodium 40 mg 12/28/24 09:00 12/28/24 09:[address] 40 Mg Tablet PO 40 mg On Hold: 12/28/24 12:16 DAILY ARCHIE Administration Comment: Order held by Process Transfer Tramadol HCl 50 mg 12/28/24 08:09 12/28/24 09:23 Tramadol 50 Mg Tablet PO 50 mg On Hold: 12/28/24 12:16 Q6H PRN Administration Comment: Order held by Process MODERATE PAIN Transfer [facility] Anesthesia Medical History (Updated 12/28/24 @ 07:08 by Lori Ryan MD) Fatigue History of [place] (myocardial infarction) Chest pain Atherosclerotic heart disease of [place] coronary artery with other forms of angina pectoris Hyperlipidemia Hypothyroidism Surgical History History of PTCA x 2, 2009 and 2021 Hx of tubal ligation Hx of heart artery stent Family History Mother CAD (coronary artery disease) Father CAD (coronary artery disease) [place] at 64/ Denies family history of Diabetes Clotting disorder Dementia Chronic kidney disease (CKD) Suicide Anesthesia complication Bleeding disorder Lung disease Cancer Stroke Social History Smoking and tobacco/nicotine status: former use of tobacco/nicotine Alcohol intake: never Substance/Drug Use: never Data Anesthesia 12/28/24 01:20 12/28/24 01:20 Short CBC 12/27/24 12/28/24 Range/Units 19:35 01:20 WBC 6.21 5.77 (3.29-11.43) 10^3/uL Hgb 11.40 11.50 (11.27-16.99) g/dL Hct 34.5 L 35.1 L (36-47) % MCV 95.3 96.2 (85-98) fl Plt Count 184 189 (157-399) 10^3/cmm Neut % (Auto) 70.2 64.1 % Neut # (Auto) 4.36 3.70 (1.8-7.7) 10^3/uL BMP 12/27/24 12/28/24 19:35 01:20 Sodium 140 139 Potassium 3.6 3.7 Chloride 106 105 Carbon Dioxide 26 25 BUN 12 13 Creatinine 0.8 0.6 Glucose 132 H 149 H Calcium 8.6 8.7 Cardiac Enzymes 12/27/24 12/27/24 12/28/24 Range/Units 19:35 21:36 01:20 Troponin T Baseline 7 (0-10) ng/L Troponin T 120 Minute 7.22 (0-10) ng/L Delta Troponin T 0.22 (0-10) ABS# Troponin T Hi Sens 6Hr 9.14 (0-10) ng/L Troponin T Hi Sens 6Hr Delta 2.14 (0-12) ng/L Liver Function 12/27/24 12/28/24 Range/Units 19:35 01:20 Total Bilirubin 0.6 0.4 (0.15-1.2) mg/dL AST 12 12 (0-32) U/L ALT 10 9 (0-33) U/L Alkaline Phosphatase 60 61 (35-105) U/L Albumin 3.8 3.6 (3.5-5.2) g/dL Cardiac Studies: Echocardiogram 06/25/24 Cardiac Event Monitor 06/10/24
[2024-12-28] MEDS: acetaminophen 1,000 MG/100 ML PIGGYBACK 400 MG IV (12:33)
--- NOTE | 2024-12-28 12:43 | PM.CONSULT ---
Providers/Reason For Consult Consulting Physician/Specialty*: Eva Garcia MD Reason for Consult*: Right subcapital hip fracture Requesting Physician: Aric Hays MD Attending Physician: Aric Hays MD Primary Care Provider: RADHA Peck History of Present Illness History of Present Illness Lakesha Robb is a 79 year old female was in her usual state of health when she was leaving her camper trailer. She was preparing to go [facility], and when she came down the 3 steps out of the camper, she turned on the second to close the door. She is uncertain as to whether she slipped or what happened at that time and she fell to the ground. This occurred on Friday evening, December 25, and she proceeded to walk on it the entire next day. When it became more painful, she came to the hospital, [facility], and was found to have a valgus impacted subcapital hip fracture. Patient was transferred to [facility] for definitive treatment. I was asked to see the patient as I have treated other family members. Review of Systems Narrative: System review upon 10 organ review were significant for musculoskeletal system because of apparent right hip fracture otherwise unremarkable. All/Imm: Denies: acute wheezing Medications/Allergies Home Medications ?Medication ?Instructions ?Recorded ?Confirmed ?Last Taken ?Type nitroglycerin 0.4 mg sublingual 0.4 mg sublingual Q5M PRN Chest 05/21/21 12/28/24 04/25/22 Rx tablet (Nitrostat) Pain #30 tabs aspirin 81 mg tablet,delayed 81 mg PO BEDTIME #90 tabs 06/22/21 12/28/24 12/27/24 Rx release isosorbide mononitrate 30 mg 15 mg (1/2 x 30 mg) PO BID #90 tabs 06/29/24 12/28/24 12/27/24 Rx tablet,extended release 24 hr ondansetron 8 mg disintegrating 8 mg PO Q8H PRN nausea and 09/15/24 12/28/24 Unknown Rx tablet vomiting #3 tabs simvastatin 40 mg tablet 40 mg PO DAILY 10/11/24 12/28/24 12/27/24 History sertraline 25 mg tablet (Zoloft) 25 mg PO DAILY #30 tabs 11/10/24 12/28/24 12/27/24 Rx levothyroxine 88 mcg capsule 88 mcg PO DAILY #90 caps 12/17/24 12/28/24 12/27/24 Rx polyethylene glycol 3350 17 17 g PO BID PRN Constipation 12/28/24 12/28/24 Unknown History gram/dose oral powder (Miralax) tramadol 50 mg tablet 50 mg PO BID PRN Pain 12/28/24 12/28/24 12/27/24 History Allergies Allergy/AdvReac Type Severity Reaction Status Date / Time codeine AdvReac ADR-Faintin Verified 12/16/24 10:13 g Current Medications Generic Name Dose Route Start Last Admin Trade Name Freq PRN Reason Stop Dose Admin Acetaminophen 650 mg 12/28/24 00:25 12/28/24 06:19 Acetaminophen 325 Mg Tablet PO 650 mg On Hold: 12/28/24 12:16 Q6H PRN Administration Comment: Order held by Process Mild/Mod Pain Or Temp >/= 101 Transfer Docusate Sodium 100 mg 12/28/24 09:00 12/28/24 09:23 Docusate Sodium 100 Mg Capsule PO 100 mg On Hold: 12/28/24 12:16 BID ARCHIE Administration Comment: Order held by Process Transfer Sodium Chloride 1,000 mls @ 75 mls/hr 12/28/24 00:25 12/28/24 01:06 Sodium Chloride 0.9% IV 75 mls/hr On Hold: 12/28/24 12:16 .[id number] ARCHIE Administration Comment: Order held by Process Transfer Sodium Chloride 1,000 mls @ 30 mls/hr 12/28/24 12:30 12/28/24 12:33 Sodium Chloride 0.9% IV 12/29/24 12:29 30 mls/hr .Q24H ARCHIE Administration Pantoprazole Sodium 40 mg 12/28/24 09:00 12/28/24 09:[address] 40 Mg Tablet PO 40 mg On Hold: 12/28/24 12:16 DAILY ARCHIE Administration Comment: Order held by Process Transfer Tramadol HCl 50 mg 12/28/24 08:09 12/28/24 09:23 Tramadol 50 Mg Tablet PO 50 mg On Hold: 12/28/24 12:16 Q6H PRN Administration Comment: Order held by Process MODERATE PAIN Transfer PFSH Acute PFSH: Medical History (Updated 12/28/24 @ 12:50 by Eva Garcia MD) Fatigue History of [place] (myocardial infarction) Chest pain Atherosclerotic heart disease of [place] coronary artery with other forms of angina pectoris Hyperlipidemia Hypothyroidism Surgical History History of PTCA x 2, 2009 and 2021 Hx of tubal ligation Hx of heart artery stent Family History Mother CAD (coronary artery disease) Father CAD (coronary artery disease) [place] at 64/ Denies family history of Diabetes Clotting disorder Dementia Chronic kidney disease (CKD) Suicide Anesthesia complication Bleeding disorder Lung disease Cancer Stroke Social History Smoking and tobacco/nicotine status: former use of tobacco/nicotine Alcohol intake: never Substance/Drug Use: never Dietary Habits: Current diet type/program: regular Caffeine: Yes Vitals/I&O/Wt Last Vital Signs Temp 97.7 F 12/28/24 11:36 Pulse 56 L 12/28/24 11:36 Resp 18 12/28/24 11:36 BP 127/72 12/28/24 11:36 Pulse Ox 95 12/28/24 11:36 O2 Del Method Room Air 12/28/24 11:36 12/27/24 12/28/24 12/28/24 22:59 06:59 14:59 Intake Total 241.667 / 241.667 Balance 241.667 / 241.667 Weight last 48 hrs Weight 107 lb Physical Exam Const: COMMON NORMALS: no acute distress, average body habitus, patient oriented x3 and alert GENERAL APPEARANCE: cooperative and comfortable ORIENTATION/CONSCIOUSNESS: Yes awake HENMT: COMMON NORMALS: normocephalic and atraumatic HEAD & SCALP: normocephalic and atraumatic Eye: GENERAL EYE: appearance normal, both eyes and all related structures Chest: COMMONS NORMALS: normal inspection of the chest Resp: COMMON NORMALS: normal respiratory effort EFFORT & INSPECTION: Yes able to speak in complete sentences and Yes symmetric chest movement Extremity: RIGHT LOWER EXTREMITY: Yes hip joint (No significant ecchymosis) Right hip: Yes inspection (No swelling), Yes palpation (Slightly tender to palpation), Yes ROM (Not evaluated) and Yes neurovascular exam (Intact distally) Neuro: COMMON NORMALS: patient oriented x3 SENSORIUM/ORIENTATION: Yes alert Psych: COMMON NORMALS: mental status grossly normal APPEARANCE: Yes grossly normal ATTITUDE: Yes calm and Yes engaged ATTENTION/CONCENTRATION: Yes attention grossly intact Skin: COMMON NORMALS: no rashes or lesions noted GENERAL SKIN EXAM: no rashes or lesions noted Data 12/28/24 01:20 12/28/24 01:20 Xray Ortho: My impression: X-rays were seen and evaluated personally by me. Images demonstrate there is a valgus impacted only minimally displaced right subcapital hip fracture. A&P Assessment and plan 1. Closed subcapital fracture of right femur, initial encounter: Patient was admitted from [facility] to [facility]. She was found to have a valgus impacted subcapital right hip fracture. As I have previously treated the patient's family, she asked the hospitalist, Dr. Hays, to asked me if I was willing to care for her. We were able to make this work, and the physician who was on-call is in agreement. Therefore, she will be taken to the operating room today for 3 cannulated screws. Risks and complications of surgery were discussed with her. Consents were signed and questions were answered. PDMP PDMP Reviewed: Not Reviewed Coding Level of Care Code Acute Code for Chg Fwd Diagnoses Closed subcapital fracture of right femur, initial encounter S72.011A Encounter type: initial encounter Fracture type: closed
[2024-12-28] MEDS: ceFAZolin 1,000 mg SDV 1000 MG IRRIGATION (13:07)
[2024-12-28] MEDS: ceFAZolin 2,000 mg SDV 2000 MG IVP (13:20)
--- NOTE | 2024-12-28 14:10 | P.OP_ITS ---
Operative Report Date of procedure: December 28, 2024 Pre-op diagnosis: Right valgus impacted subcapital hip fracture Post-op diagnosis: Right valgus impacted subcapital hip fracture Post-op findings: As per diagnosis Procedure done: Open reduction internal fixation right subcapital hip fracture Implants: Cannulated screws x 3 Specimens removed/disposition: None Pathology: None Surgeon: Eva Garcia MD Transmission Inspector: None Anesthesia: General (Per LMA, ASA 3) Estimated blood loss (mL): 5 IV fluids (mL): 800 Urine output (mL): 400 Complications: None Findings: As above Condition: stable Disposition: PACU (Then return to floor for postoperative rehabilitation and pain management) Brief History: This 79-year-old woman presented initially to [facility] and subsequently transferred to our hospital following a mechanical fall at home. She was found to have a valgus impacted right subcapital hip fracture. I was asked to see the patient as I have taking care of other family members. Patient was seen and arrangements were made for open reduction internal fixation of her right hip fracture. Risks and complications were discussed with the family including the patient's , daughter, and son. Consents were signed and questions were answered preoperatively. Procedure: Patient is brought to the operating theater and after undergoing adequate general anesthesia per LMA, ASA 3, the patient was transferred to the [place] table. Fluoroscopy was positioned so that we could visualize the fracture in AP and lateral planes. Maintenance of position of was confirmed. Being satisfied with the position of the femoral head the leg was then prepped with DuraPrep. A shower curtain style drape was utilized to drape out the patient's right lower extremity. Patient's leg was marked in the preoperative holding area and these markings were visualized. A surgical pause was performed. We confirmed administration of preoperative IV Ancef 2 g as well as the site and side of surgery. Fluoroscopy was utilized and an incision was made in appropriate position to allow placement of 3 cannulated screws using the Khushbu gun as a guide. The most inferior of the inverted triangle wire was placed first. Optimal position was determined with fluoroscopy in AP and lateral. The remaining guidewires were then placed also under fluoroscopic guidance in AP and lateral planes. Patient had a small femoral neck, but we were able to place 3 screws in appropriate position. The Khushbu gun was removed and the length of guidewires was measured. The cannulated screws were then placed over the guidewire. Guidewires were advanced to appropriate position and subsequently hand tightened. Position of the screws was confirmed in AP and lateral. Being satisfied with the position of the screws, guidewires were removed. AP and lateral images were obtained utilizing fluoroscopy. Being satisfied the wound was irrigated, closure was then accomplished with 0 Vicryl in the fascial tissues and 2-0 Monocryl in the subcutaneous tissues. Skin was closed with a running 3-0 Monocryl. The wound was then injected with 0.5% bupivacaine with epinephrine. Sterile dressing was then placed consisting of Dermabond and OpSite. The patient was returned the recovery room in satisfactory condition. There were no complications. There were no specimens. Related Problem List Diagnoses 1. Closed subcapital fracture of right femur, initial encounter:
[2024-12-28] MEDS: BUPivacaine-epi 0.5% 10 ML INJ 20 ML INJECTION (14:20)
--- NOTE | 2024-12-28 14:50 | ANE.PACU2 ---
Inpatient post-anesthesia follow up: Airway intact: Yes Vital signs: Temperature 97.6 F Pulse Rate 62 Respiratory Rate 17 Blood Pressure 135/70 Pulse Oximetry 97 Oxygen Delivery Me thod Room Air Oxygen Flow Rate Fraction of Inspir ed Oxygen Hydration adequate: Yes Nausea and vomiting: No Pain level: 1 Mental status: Baseline
--- NOTE | 2024-12-28 16:49 | P.PN_ITS ---
Subjective 2 Subjective: Patient was seen this morning, currently alert oriented x 3, follow commands, complaints of hip pain, we discussed surgical intervention for her hip fracture, she has had family members that have had tremendous experience with Dr. Garcia, would prefer if I could contact Dr. Garcia to perform her operation, reached out to Dr. Garcia, who is in agreement, patient reports that her last meal was last night before midnight she has not had anything to eat or drink since then, plan on surgical invention this afternoon Vitals/I&O/Wt Last Vital Signs Temp 97.7 F 12/28/24 16:05 Pulse 63 12/28/24 16:05 Resp 17 12/28/24 16:05 BP 123/72 12/28/24 16:05 Pulse Ox 96 12/28/24 16:05 O2 Del Method Room Air 12/28/24 16:05 12/28/24 12/28/24 12/28/24 06:59 14:59 22:59 Intake Total 241.667 / 241.667 842.5 / 842.5 Output Total 805 / 805 Balance 241.667 / 241.667 37.5 / 37.5 Weight last 48 hrs Weight 48.534 kg Physical Exam 2 Const: COMMON NORMALS: no acute distress and patient oriented x3 Resp: COMMON NORMALS: normal respiratory effort, No retractions, No use of accessory muscles and clear to auscultation bilaterally AUSCULTATION: clear to auscultation bilaterally Cardio: COMMON NORMALS: regular rate, regular rhythm, S1 normal heart sound present and S2 normal heart sound present RATE: regular rate RHYTHM: r egular rhythm HEART SOUNDS: S1 normal heart sound present and S2 normal heart sound present GI: COMMON NORMALS: Normal to inspection, nondistended, normoactive bowel sounds present and non-tender Extremity: COMMON NORMALS: no calf tenderness and no pedal edema Neuro: COMMON NORMALS: patient oriented x3 Psych: COMMON NORMALS: mental status grossly normal Data 12/28/24 01:20 12/28/24 01:20 A&P Assessment and plan 1. Right hip pain: 2. Closed right hip fracture: 3. Back Pain: 4. Benign essential HTN: Right hip pain with fracture - Currently n.p.o. - Orthopedics have been consulted - Pain management had been initiated - Continue pain management Hypothyroidism continue levothyroxine Hyperlipidemia continue statin PDMP PDMP Reviewed: Not Reviewed Attestations 2 Medical Necessity Statement*: Patient requires hospitalization for right hip fracture status post surgical intervention Diagnoses Right hip pain M25.551 Closed right hip fracture S72.001A Back Pain M54.9 Benign essential HTN I10
[2024-12-28] MEDS: ceFAZolin 1,000 mg SDV 1000 MG IVP (17:30)
[2024-12-28] MEDS: saliva stimulant spray 30 mL Btl 1 SPRAY MUCOUS MEM (21:20)
[2024-12-29] VITALS (8 sets, daily range): BP systolic 109–135; BP diastolic 68–77; PULSE 62–80; RESP 16–18; TEMP 36.4–36.8; O2SAT 90–97; BMI 17.8
[2024-12-29] MEDS: ceFAZolin 1,000 mg SDV 1000 MG IVP ×2 (01:19→08:13)
--- NOTE | 2024-12-29 05:14 | PC.NURSE ---
Foly catheter removed at this time without complication, the catheter was completely intact upon removal.
[2024-12-29 05:56] LABS: Hematocrit 36.8 % (36-47); Hemoglobin 12.30 g/dL (11.27-16.99); Mean Corpuscular HGB Conc 33.4 g/dL (30-55); Mean Corpuscular Hemoglobin 32.1 pg (27-33); Mean Corpuscular Volume 96.1 fl (85-98); Nucleated Red Blood Cells % 0 %; Platelet Count 209 10^3/cmm (157-399); Red Blood Count 3.83 10^6/uL (3.85-5.65); White Blood Count 7.60 10^3/uL (3.29-11.43)
[2024-12-29 06:20] LABS: Anion Gap 14.4 (5-19); Blood Urea Nitrogen 12 mg/dL (8-23); Calcium 8.8 mg/dL (8.5-10.5); Carbon Dioxide 25 mmol/L (22-29); Chloride 106 mmol/L (98-107); Creatinine Clr Calc Pharmacy 45.1215; Glucose 105 mg/dL (65-115); Osmolality Calculated 292 mOsm/kg (285-295); Potassium 4.4 mmol/L (3.5-5.1); Sodium 141 mmol/L (136-145)
[2024-12-29 06:23] LABS: Magnesium 1.9 mg/dL (1.7-2.3)
[2024-12-29] MEDS: oxyCODONE 5 mg IR Tab/Cap PO ×2 (08:12→16:49)
[2024-12-29] MEDS: ATORVASTATIN 10 MG TABLET 20 MG PO (08:12)
[2024-12-29] MEDS: ondansetron 2 mg/ML SDV 2 mL 4 MG IVP (10:23)
[2024-12-29] MEDS: fixodent 39 gm Tube 1 APPLIC DENTAL (11:54)
--- NOTE | 2024-12-29 13:00 | P.PN_ITS ---
Subjective 2 Subjective: The patient is seen in her room with her . She has done well with physical therapy today. She has no significant complaints. She does express a desire to go to the swing bed at [facility]. Medications: Reviewed: Yes Vitals/I&O/Wt Last Vital Signs Temp 97.5 F L 12/29/24 12:27 Pulse 73 12/29/24 12:27 Resp 16 12/29/24 12:27 BP 115/77 12/29/24 12:27 Pulse Ox 96 12/29/24 12:27 O2 Del Method Room Air 12/29/24 04:00 12/28/24 12/29/24 12/29/24 22:59 06:59 14:59 Intake Total 480 / 1322.5 360 / 360 Output Total 150 / 955 300 / 1255 Balance 330 / 367.5 -300 / 67.5 360 / 360 Weight last 48 hrs Weight 107 lb Weight 107 lb Physical Exam 2 Const: COMMON NORMALS: no acute distress, average body habitus, patient oriented x3 and alert GENERAL APPEARANCE: cooperative and comfortable O RIENTATION/CONSCIOUSNESS: Yes awake HENMT: COMMON NORMALS: normocephalic and atraumatic HEAD & SCALP: n ormocephalic and atraumatic Eye: GENERAL EYE: appearance normal, both eyes and all related structures Chest: COMMONS NORMALS: normal inspection of the chest Resp: COMMON NORMALS: normal respiratory effort EFFORT & INSPECTION: Yes able to speak in complete sentences and Yes symmetric chest movement Extremity: RIGHT LOWER EXTREMITY: Yes hip joint (Dressing is dry and intact) Right hip: Yes inspection (No significant ecchymosis swelling), Yes palpation (Minimal discomfort.), Yes ROM ( Not evaluated) and Yes neurovascular exam (Intact distally with no evidence of DVT) Neuro: COMMON NORMALS: patient oriented x3 SENSORIUM/ORIENTATION: Yes alert Psych: COMMON NORMALS: mental status grossly normal APPEARANCE: Yes grossly normal ATTITUDE: Yes calm and Yes engaged ATTENTION/CONCENTRATION: Yes attention grossly intact Skin: COMMON NORMALS: no rashes or lesions noted GENERAL SKIN EXAM: no rashes or lesions noted Data 12/29/24 05:39 12/29/24 05:39 A&P Assessment and plan 1. Closed subcapital fracture of right femur, initial encounter: Patient was admitted from [facility] to [facility]. She was found to have a valgus impacted subcapital right hip fracture. As I have previously treated the patient's family, she asked the hospitalist, Dr. Hays, to asked me if I was willing to care for her. We were able to make this work, and the physician who was on-call is in agreement. The patient was therefore taken to surgery on December 28 for placement of cannulated screws x 3. This was well- tolerated. On the first postoperative day, the patient was up and ambulating with physical therapy. She was weightbearing as tolerated. She will need to follow-up with me in approximately 2 weeks time, but she has been approved to transfer to swing bed at [facility]. This will likely occur tomorrow. PDMP PDMP Reviewed: Not Reviewed Attestations 2 Medical Necessity Statement*: Per hospitalist team Coding Level of Care Code Acute Code for Chg Fwd Diagnoses Closed subcapital fracture of right femur, initial encounter S72.011A Encounter type: initial encounter Fracture type: closed
--- NOTE | 2024-12-29 15:15 | P.PN_ITS ---
Subjective 2 Subjective: Patient was seen this morning, currently alert and orient x 3, following commands, she does feel nauseous, no lightheadedness, no dizziness, no nausea, no vomiting, she does report episodes of visual hallucinations during the night, in which she felt that the wall was expanding, she has not had any episodes since then, no facial droop, slurring her words, no focal weakness, no other paresthesias, she does tell me that she feels nauseous with the oxycodone at times, she has taken a dose of Zofran this morning, no chest pain, no palpitations Vitals/I&O/Wt Last Vital Signs Temp 97.5 F L 12/29/24 12:27 Pulse 73 12/29/24 12:27 Resp 16 12/29/24 12:27 BP 115/77 12/29/24 12:27 Pulse Ox 96 12/29/24 12:27 O2 Del Method Room Air 12/29/24 04:00 12/29/24 12/29/24 12/29/24 06:59 14:59 22:59 Intake Total 600 / 600 Output Total 300 / 1255 Balance -300 / 67.5 600 / 600 Weight last 48 hrs Weight 48.534 kg Weight 48.534 kg Physical Exam 2 Const: COMMON NORMALS: no acute distress and patient oriented x3 Resp: COMMON NORMALS: normal respiratory effort, No retractions, No use of accessory muscles and clear to auscultation bilaterally AUSCULTATION: clear to auscultation bilaterally Cardio: COMMON NORMALS: regular rate, regular rhythm, S1 normal heart sound present and S2 normal heart sound present RATE: regular rate RHYTHM: r egular rhythm HEART SOUNDS: S1 normal heart sound present and S2 normal heart sound present GI: COMMON NORMALS: Normal to inspection, nondistended, normoactive bowel sounds present and non-tender Extremity: COMMON NORMALS: no pedal edema Neuro: COMMON NORMALS: patient oriented x3 Psych: COMMON NORMALS: mental status grossly normal Data 12/29/24 05:39 12/29/24 05:39 A&P Assessment and plan 1. Right hip pain: 2. Closed right hip fracture: 3. Back Pain: 4. Benign essential HTN: Right hip pain with fracture - S/p surgical invention - Orthopedics have been consulted - Pain management had been initiated - Continue pain management Hypothyroidism continue levothyroxine Hyperlipidemia continue statin PDMP PDMP Reviewed: Not Reviewed Attestations 2 Medical Necessity Statement*: Patient requires hospitalization, for right hip fracture, status post surgical invention, Diagnoses Right hip pain M25.551 Closed right hip fracture S72.001A Back Pain M54.9 Benign essential HTN I10
--- NOTE | 2024-12-29 15:26 | PC.NURSE ---
Dr. Garcia has seen this patient and written her discharge portion for patient to leave tomorrow. Patient will not need to wait to be seen by her for discharge.
[2024-12-29 16:29] LABS: SARS Covid-2 Antigen Negative (Negative)
[2024-12-29] MEDS: metoclopramide 5 mg/mL SDV 2 mL IVP (16:49)
[2024-12-29 22:15] LABS: Glucose Urine UA Negative (Normal); Nitrate Urine Negative (Negative); Specific Gravity, Urine 1.004 (1.005-1.030)
[2024-12-29 22:18] LABS: Add Urine Microscopic? YES
[2024-12-30] VITALS: BP 138/70; PULSE 78; RESP 16; TEMP 36.7; O2SAT 96
[2024-12-30 04:00] VITALS: BP 123/77; PULSE 75; RESP 16; TEMP 36.7; O2SAT 95
[2024-12-30 04:20] LABS: Hematocrit 33.1 % (36-47); Hemoglobin 10.90 g/dL (11.27-16.99); Mean Corpuscular HGB Conc 32.9 g/dL (30-55); Mean Corpuscular Hemoglobin 31.4 pg (27-33); Mean Corpuscular Volume 95.4 fl (85-98); Nucleated Red Blood Cells % 0 %; Platelet Count 207 10^3/cmm (157-399); Red Blood Count 3.47 10^6/uL (3.85-5.65); White Blood Count 6.55 10^3/uL (3.29-11.43)
[2024-12-30 04:38] LABS: Anion Gap 10.9 (5-19); Blood Urea Nitrogen 13 mg/dL (8-23); Calcium 8.4 mg/dL (8.5-10.5); Carbon Dioxide 26 mmol/L (22-29); Chloride 108 mmol/L (98-107); Creatinine Clr Calc Pharmacy 49.8439; Glucose 100 mg/dL (65-115); Osmolality Calculated 292 mOsm/kg (285-295); Potassium 3.9 mmol/L (3.5-5.1); Sodium 141 mmol/L (136-145)
[2024-12-30 07:35] VITALS: BP 131/82; PULSE 62; RESP 15; TEMP 36.6; O2SAT 95
[2024-12-30] MEDS: cefTRIAXone 1,000 mg SDV 1000 MG IVP (08:10)
[2024-12-30] MEDS: ATORVASTATIN 10 MG TABLET 20 MG PO (08:10)
--- NOTE | 2024-12-30 11:32 | PM.DCS ---
Discharge Providers Date of Admission: 12/27/24 18:43 Date of Discharge: December 30, 2024 Attending Provider at Admission: Aric Hays MD Attending Provider at Discharge: Aric Hays MD Primary Care Provider: RADHA Peck Diagnoses at Discharge Discharge Diagnosis 1. Closed subcapital fracture of right femur, initial encounter: Reason for Visit Reason for Visit: RT Hip F/x Hospital Course Hospital Course This is a 79 a female who presents [facility] for mechanical fall and right hip fracture Patient was admitted to [facility] for right hip fracture, status post surgical intervention, by Dr. Garcia, patient tolerated procedure well, discharged to correction facility, discharged on aspirin for DVT prophylaxis Physical Exam Const: COMMON NORMALS: no acute distress and patient oriented x3 Resp: COMMON NORMALS: normal respiratory effort, No retractions, No use of accessory muscles and clear to auscultation bilaterally AUSCULTATION: clear to auscultation bilaterally Cardio: COMMON NORMALS: regular rate, regular rhythm, S1 normal heart sound present and S2 normal heart sound present RATE: regular rate RHYTHM: regular rhythm HEART SOUNDS: S1 normal heart sound present and S2 normal heart sound present GI: COMMON NORMALS: Normal to inspection, nondistended, normoactive bowel sounds present and non-tender Extremity: COMMON NORMALS: no pedal edema Neuro: COMMON NORMALS: patient oriented x3, CN's II-XII intact bilaterally and moves all extremities Psych: COMMON NORMALS: mental status grossly normal Discharge Data Studies Completed and Pending Pending at discharge Category Date Time Status XR hip RT 2-3V wo/w pel* [id number] Routine Exams 12/28/24 00:00 Taken Basic Metabolic Panel AM LABS Lab 12/31/24 04:00 Ordered Complete Blood Count w/Auto AM LABS Lab 12/31/24 04:00 Ordered Urine Culture Routine Lab 12/29/24 22:00 Received Laboratory Results WBC 6.55 10^3/uL (3.29-11.43) 12/30/24 03:02 RBC 3.47 10^6/uL (3.85-5.65) L 12/30/24 03:02 Hgb 10.90 g/dL (11.27-16.99) L 12/30/24 03:02 Hct 33.1 % (36-47) L 12/30/24 03:02 MCV 95.4 fl (85-98) 12/30/24 03:02 MCH 31.4 pg (27-33) 12/30/24 03:02 MCHC 32.9 g/dL (30-55) 12/30/24 03:02 RDW 12.0 % (12.1-15.1) L 12/30/24 03:02 Plt Count 207 10^3/cmm (157-399) 12/30/24 03:02 MPV 9.7 fL (7.4-10.4) 12/30/24 03:02 Neut % (Auto) 67.4 % 12/30/24 03:02 Lymph % (Auto) 24.0 % 12/30/24 03:02 Clinch % (Auto) 7.8 % 12/30/24 03:02 Eos % (Auto) 0.0 % 12/30/24 03:02 Baso % (Auto) 0.5 % 12/30/24 03:02 Neut # (Auto) 4.42 10^3/uL (1.8-7.7) 12/30/24 03:02 Lymph # (Auto) 1.6 10^3/uL (0.8-4.8) 12/30/24 03:02 Clinch # (Auto) 0.5 10^3/uL (0.2-0.9) 12/30/24 03:02 Eos # (Auto) 0.0 10^3/uL (0.0-0.8) 12/30/24 03:02 Baso # (Auto) 0.0 10^3/uL (0.0-0.1) 12/30/24 03:02 Nucleated RBC % (auto) 0 % 12/30/24 03:02 Nucleated RBCs # 0.0 /100WBC 12/30/24 03:02 Sodium 141 mmol/L (136-145) 12/30/24 03:02 Potassium 3.9 mmol/L (3.5-5.1) 12/30/24 03:02 Chloride 108 mmol/L (98-107) H 12/30/24 03:02 Carbon Dioxide 26 mmol/L (22-29) 12/30/24 03:02 Anion Gap 10.9 (5-19) 12/30/24 03:02 BUN 13 mg/dL (8-23) 12/30/24 03:02 Creatinine 0.7 mg/dL (0.5-0.9) 12/30/24 03:02 GFR Calculation Not Reportable 12/30/24 03:02 Glucose 100 mg/dL (65-115) 12/30/24 03:02 Estimat Average Glucose 114 12/27/24 19:35 Hemoglobin A1c 5.6 % (4.0-6.0) 12/27/24 19:35 Calculated Osmolality 292 mOsm/kg (285-295) 12/30/24 03:02 Calcium 8.4 mg/dL (8.5-10.5) L 12/30/24 03:02 Phosphorus 3.5 mg/dL (2.5-4.5) 12/28/24 01:20 Magnesium 1.9 mg/dL (1.7-2.3) 12/29/24 05:39 Total Bilirubin 0.4 mg/dL (0.15-1.2) 12/28/24 01:20 AST 12 U/L (0-32) 12/28/24 01:20 ALT 9 U/L (0-33) 12/28/24 01:20 Alkaline Phosphatase 61 U/L (35-105) 12/28/24 01:20 Troponin T Baseline 7 ng/L (0-10) 12/27/24 19:35 Troponin T 120 Minute 7.22 ng/L (0-10) 12/27/24 21:36 Delta Troponin T 0.22 ABS# (0-10) 12/27/24 21:36 Troponin T Hi Sens 6Hr 9.14 ng/L (0-10) 12/28/24 01:20 Troponin T Hi Sens 6Hr Delta 2.14 ng/L (0-12) 12/28/24 01:20 Total Protein 5.9 g/dL (6.6-8.7) L 12/28/24 01:20 Albumin 3.6 g/dL (3.5-5.2) 12/28/24 01:20 Globulin 2.3 g/dL (1.3-4.6) 12/28/24 01:20 Triglycerides 49 mg/dL (0-150) 12/27/24 19:35 Cholesterol 125 mg/dL (0-200) 12/27/24 19:35 LDL Cholesterol, Calc 49 mg/dL (50-129) L 12/27/24 19:35 HDL Cholesterol 66 mg/dL (60-100) 12/27/24 19:35 LDL/HDL Ratio 0.74 RATIO (0.00-3.22) 12/27/24 19:35 Cholesterol/HDL Ratio 1.89 mg/dL (0.0-4.40) 12/27/24 19:35 TSH 0.24 uIU/mL (0.27-4.20) L 12/27/24 19:35 Urine Color Yellow (Yellow) 12/29/24 22:00 Urine Appearance Clear (CLEAR) 12/29/24 22:00 Urine pH 6.0 (5-7) 12/29/24 22:00 Ur Specific [place] 1.004 (1.005-1.030) L 12/29/24 22:00 Urine Protein Negative (Negative) 12/29/24 22:00 Urine Glucose (UA) Negative (Normal) 12/29/24 22:00 Urine Ketones Negative (Negative) 12/29/24 22:00 Urine Blood Negative (Negative) 12/29/24 22:00 Urine Nitrate Negative (Negative) 12/29/24 22:00 Urine Bilirubin Negative (Negative) 12/29/24 22:00 Urine Urobilinogen 1.0 mg/dL (Negative) 12/29/24 22:00 Ur Leukocyte Esterase 3+ (Negative) A 12/29/24 22:00 Urine RBC 0-2 /hpf (0-2) 12/29/24 22:00 Urine WBC 21-50 /hpf (0-5) H 12/29/24 22:00 Ur Squamous Epith Cells 0-5 /hpf (0-5) 12/29/24 22:00 Amorphous Sediment Not Reportable 12/29/24 22:00 Urine Bacteria None seen /hpf (NONE) 12/29/24 22:00 Hyaline Casts 0.40 /lpf 12/29/24 22:00 SARS-CoV-2 Ag (Rapid) Negative (Negative) 12/29/24 14:48 Vitals Last Vital Signs Temp 97.9 F 12/30/24 07:35 Pulse 62 12/30/24 07:35 Resp 15 12/30/24 07:35 BP 131/82 12/30/24 07:35 Pulse Ox 95 12/30/24 07:35 O2 Del Method Room Air 12/30/24 07:35 Discharge Plan Discharge Patient Disposition: Xfer Inpatient Rehab Fac Condition: Stable Prescriptions: New aspirin 325 mg Tablet,Delayed Release (Dr/Ec) See Rx Instructions .ROUTE .COMPLEX Qty: 30 0RF Rx Instructions: Aspirin 325 mg once daily for 2 weeks, then go down to 81 mg once daily thereafter Continued Nitrostat 0.4 mg tablet, sublingual 0.4 mg SUBLINGUAL Q5M PRN (Reason: Chest Pain) Qty: 30 5RF ondansetron 8 mg tablet,disintegrating 8 mg PO Q8H PRN (Reason: nausea and vomiting) Qty: 3 0RF isosorbide mononitrate 30 mg tablet extended release 24 hr 15 mg PO BID Qty: 90 3RF Rx Instructions: Dose reduced levothyroxine 88 mcg capsule 88 mcg PO DAILY Qty: 90 0RF sertraline 25 mg tablet See Rx Instructions .ROUTE .COMPLEX Qty: 30 0RF Dose Instruction: Take 1 tablet by mouth once daily Rx Instructions: Take 1 tablet by mouth once daily polyethylene glycol 3350 [Miralax] 17 gram/dose powder 17 g PO BID PRN (Reason: Constipation) Patient Comments: Pt states she stopped taking this 10/08/24 because she couldn't get off the stool simvastatin 40 mg tablet 40 mg PO DAILY Changed tramadol 50 mg tablet 50 mg PO TID PRN (Reason: Pain) 7 Days Qty: 21 0RF Discontinued aspirin 81 mg tablet,delayed release (DR/EC) 81 mg PO BEDTIME Qty: 90 1RF [employer] OK for DC: Orthopedics Discharge Order = DC NOW: Discharge Order (Routine); Ordered 12/30/24 Ordered By: Aric Hays Referrals: Eva Garcia MD [Physician, Orthopedics] - 01/10/25 3:45 pm Lesli Bass [Referring, Neurology] - 1 week Referral Note: dementia We have notified your physician's clinic of the need for a follow-up appointment to be scheduled. If you have not heard from them within the next 2 business days, please call them directly. Discharge Activity: Use walker/crutches as instructed and As per PT/OT instructions Patient Instructions: Ciprofloxacin (By mouth), Aspirin (By mouth), Acute Wound Care (DC), Joint Replacement Stoplight, Post Anesthesia Care Activity Restrictions/Additional Instructions: Weight-bear as tolerated on right lower extremity. You may shower, but do not submerge your incision in water until it is completely healed and you are seen in the office. Ice to right hip. Maintain current dressing until it either lifts up from the patient's skin or comes off on its own. Discharge Attestations Time Spent in Discharge Care*: greater than 30 min Quality Metrics Clinical Quality Measures [ No reported AMI, CVA or VTE this stay] Coding Level of Care Code Acute Code for [facility] Fwd Diagnoses Closed subcapital fracture of right femur, initial encounter S72.011A Encounter type: initial encounter Fracture type: closed
[2024-12-30 11:46] VITALS: BP 121/72; PULSE 68; RESP 16; TEMP 36.9; O2SAT 94
--- NOTE | 2024-12-30 12:02 | PC.NURSE ---
This nurse called report to GREGG Mckinnon at [facility] Swingbed at 1200. Family is going to transport pt.
[2024-12-30 12:34] VITALS: BP 121/72; PULSE 68; O2SAT 94
== END 2024-12-30 12:36 | disposition skilled nursing facility (03) | DRG 482 ==
PROVIDERS: Internal Medicine; Specialist; Admitting Provider Family Medicine; PCP Nurse Practitioner Family; Visit Provider Family Medicine
PROC: 0QS604Z Reposition Right Upper Femur with Internal Fixation Device, Open Approach (ICD-10-PCS; CPT 27236; principal; 2024-12-28 13:15)
DX: S72.011A Unspecified intracapsular fracture of right femur, initial encounter for closed fracture (principal); W10.8XXA Fall (on) (from) other stairs and steps, initial encounter; I10 Essential (primary) hypertension; G89.29 Other chronic pain; M54.9 Dorsalgia, unspecified; I25.10 Atherosclerotic heart disease of native coronary artery without angina pectoris; E03.9 Hypothyroidism, unspecified; E78.5 Hyperlipidemia, unspecified; I25.2 Old myocardial infarction; Z79.82 Long term (current) use of aspirin
CPT/HCPCS: 36415; 73502; 76000; 80048; 80053; 80061; 81001; 83036; 83735; 84100; 84443; 84484; 85025; 87086; 87426; 93005; 96372; 97116; 97161; 97165; 97535; C1713; J0131; J0690; J0696; J1100; J1650; J2405; J2704; J2765; J3010; J7030; J9999

== ENCOUNTER → 2025-01-10 16:02 | Outpatient (BNVA) | payer MEDICARE, OTHER, SELFPAY | PROVIDERS: PCP Nurse Practitioner Family; Visit Provider Specialist | DX: Z98.890 Other specified postprocedural states (principal) | CPT/HCPCS: 73502; 99024 ==

== ENCOUNTER 2025-02-17 13:38 | Outpatient (CLI) | payer MEDICARE, OTHER, SELFPAY ==
[2025-02-17] MEDS: iohexol 350 mg/mL 500 mL Btl (per mL) IV (14:58)
--- NOTE | 2025-02-17 15:00 | CTR_ITS ---
PROCEDURE INFORMATION: Exam: CTA Chest With Contrast CTA Abdomen With Contrast Exam date and time: 02/17/2025 02:46 PM Age: 79 years old Clinical indication: Cardiovascular condition or disease; Aortic aneurysm; Without rupture; Location not specified; Arterial aneurysm; Prior surgery; Surgery date: 6+ months; Surgery type: Heart stents; Additional info: I71.40 - abdominal aortic aneurysm, without rupture, unsp. . . , Follow up TECHNIQUE: Imaging protocol: Computed tomographic angiography of the chest with contrast. Exam focused on the arteries. Computed tomographic angiography of the abdomen with contrast. Exam focused on the arteries. 3D rendering (Not supervised by radiologist): MIP and/or 3D reconstructed images were created x the technologist. Radiation optimization: All CT scans at this facility use at least one of these dose optimization techniques: automated exposure control; mA and/or kV adjustment per patient size (includes targeted exams where dose is matched to clinical indication); or iterative reconstruction. Contrast material: OMNI 350; Contrast volume: 100 ml; Contrast route: INTRAVENOUS (IV); COMPARISON: [facility] t [place] [id number] 07/23/2024 09:28 AM RADIATION DOSE METRICS: Total DLP (mGy-cm): 392.85 FINDINGS: VASCULATURE: Pulmonary arteries: Normal. No pulmonary emboli. Aorta: The ascending aorta measures 3.8 x 4.1 cm. Infrarenal abdominal aortic aneurysm measuring 2.2 x 2.0 cm. Celiac and mesenteric arteries: No occlusion or significant stenosis. Renal arteries: No occlusion or significant stenosis. CHEST: Lungs: Diffuse emphysematous changes. Subpleural ground-glass opacity in the superior posterior aspect of the left lower lobe (series 6, image 55). This is similar to the CT from 07/23/2024. Bibasilar atelectasis/scarring. Pleural spaces: Biapical pleural thickening. Heart: Heart size is normal. No pericardial effusion. ABDOMEN AND PELVIS: Liver: No mass. Gallbladder and biliary ducts: Unremarkable. No calcified stones. No ductal dilation. Pancreas: Unremarkable. No mass. No ductal dilation. Spleen: Unremarkable. No splenomegaly. Adrenal glands: Unremarkable. No mass. Kidneys: Unremarkable kidneys. No solid mass. No hydronephrosis. Stomach and bowel: Wall thickening of the 3rd portion of the duodenum, nonspecific. Moderate stool in the descending colon. Intraperitoneal space: Unremarkable. No free air. No significant fluid collection. Lymph nodes: Unremarkable. No enlarged lymph nodes. Bones/joints: Diffuse osteopenia. Degenerative changes of the spine with disc space narrowing at L1-L2 and anterior endplate sclerosis. Soft tissues: Unremarkable. Other findings: No dissection. Atherosclerotic vascular disease. CT/[place]d [id number] IMPRESSION: 1. The ascending aorta measures 3.8 x 4.1 cm. Previously measured 4 cm in maximal dimension on the CT from 07/23/2024. 2. No dissection. 3. Infrarenal abdominal aortic aneurysm measuring 2.2 x 2.0 cm. Previously measured 2 x 2 cm on the previous CT from 07/23/2024. 4. Diffuse emphysematous changes. 5. Subpleural ground-glass opacity in the superior posterior aspect of the left lower lobe (series 6, image 55). This is similar to the CT from 07/23/2024. 6. Wall thickening of the 3rd portion of the duodenum, nonspecific. COMMENTS: The presence of pulmonary emphysema on CT is an independent risk factor for lung cancer. In the absence of a history or active diagnosis of lung cancer, it is recommended that this patient with emphysema be evaluated for enrollment in a low dose CT lung cancer screening program.
== END 2025-02-17 13:39 | disposition home or self-care (01) ==
LOC: RAD 13:39
PROVIDERS: PCP Nurse Practitioner Family; Visit Provider Nurse Practitioner Family
DX: I71.40 Abdominal aortic aneurysm, without rupture, unspecified (principal); J43.9 Emphysema, unspecified; R91.8 Other nonspecific abnormal finding of lung field; R93.89 Abnormal findings on diagnostic imaging of other specified body structures; J98.11 Atelectasis; J92.9 Pleural plaque without asbestos; M85.80 Other specified disorders of bone density and structure, unspecified site; M47.896 Other spondylosis, lumbar region; M51.369 Other intervertebral disc degeneration, lumbar region without mention of lumbar back pain or lower extremity pain; I70.90 Unspecified atherosclerosis
CPT/HCPCS: 71275; 74175

== ENCOUNTER 2025-03-01 12:55 | Outpatient (CLI) | payer MEDICARE, OTHER, SELFPAY ==
--- NOTE | 2025-03-01 13:15 | CT_ITS ---
WS: [id number] LDCT LUNG CANCER SCREENING TECHNIQUE: Noncontrast CT of the chest with coronal and sagittal reformatted images. CLINICAL INFORMATION: Z87.891 - Personal history of nicotine dependence COMPARISON: 02/17/2025 07/23/2024 DLP: 50.79 mGy.cm DIvol: Mean CTDIvol: 0.80 (mGy) All CT scans at [facility] use at least one of these dose optimization techniques: automated exposure control; mA and/or kV adjustment per patient size (includes targeted exams where dose is matched to clinical indication); or iterative reconstruction. FINDINGS: Groundglass opacity LEFT lower lobe measuring 1.5 cm unchanged since 02/17/2025 and 07/23/2024. This is new since 12/09 2023. Recommend 6-month follow-up. Tiny nodule in the lingula. Aneurysmal ascending thoracic aorta unchanged since the recent CTA measuring 4.0 cm. Aortic calcification. Dense coronary calcification. No mediastinal or hilar lymphadenopathy. No axillary lymphadenopathy. Mild compression superior endplate T8 unchanged since 02/17/2025. This is new since 07/23/2024. CT/CT lung screening [id number] IMPRESSION: Groundglass opacity LEFT lower lobe measuring 1.5 cm unchanged since 02/17/2025 and 07/23/2024. This is new since 12/09 2023. Recommend 6-month follow-up. LUNG-RADS: 3-Probably Benign FOLLOW UP: 6 Month LDCT
== END 2025-03-01 12:56 | disposition home or self-care (01) ==
LOC: RAD 12:56
PROVIDERS: PCP Nurse Practitioner Family; Visit Provider Nurse Practitioner Family
DX: Z12.2 Encounter for screening for malignant neoplasm of respiratory organs (principal); Z87.891 Personal history of nicotine dependence; J98.4 Other disorders of lung; I71.21 Aneurysm of the ascending aorta, without rupture; I25.10 Atherosclerotic heart disease of native coronary artery without angina pectoris
CPT/HCPCS: 71271

== ENCOUNTER → 2025-04-12 14:37 | Outpatient (BNVA) | payer MEDICARE, OTHER, SELFPAY | PROVIDERS: PCP Nurse Practitioner Family; Visit Provider Internal Medicine | DX: I25.118 Atherosclerotic heart disease of native coronary artery with other forms of angina pectoris (principal); I10 Essential (primary) hypertension; E78.5 Hyperlipidemia, unspecified; E03.9 Hypothyroidism, unspecified; Z87.891 Personal history of nicotine dependence | CPT/HCPCS: 99213 ==